=== PATIENT | female | born 1980 | race Caucasian/White ===

== ENCOUNTER → 2017-09-02 | Outpatient (REF) | payer OTHER | LOC: M LAB REF 16:19 | DX: N39.0 Urinary tract infection, site not specified (principal) ==

== ENCOUNTER 2018-07-12 16:06 | Emergency (ER) | payer OTHER ==
[~2018-07-12] VITALS: Ht 167.6 cm; Wt 72.7 kg
[2018-07-12 16:06] VITALS: BP 116/76
[~2018-07-12 16:06] MED LIST: ACET-716 PO; BACT800T5 PO; DICY20TA PO; HYDR-3715 PO; IBUP-1022 PO; IBUP-1114 PO; IBUP80TA PO; KLON0.5T PO; LITH300T2 PO; PRED20TA PO; PROM12.528 PO; PROT1TAB2 PO; PROZ10CA7 PO; PYRI1TAB5 PO; ROBA500T PO; SERO1TAB PO; SUCR1SS PO
[2018-07-12] MEDS ORDERED: ROBA500T PO (17:23)
[2018-07-12] MEDS ORDERED: PRED20TA PO (17:23)
[2018-07-12] MEDS ORDERED: GABA-843 PO (17:23)
[2018-07-12] MEDS ORDERED: LIDOCAINE 2% MDV 20 ML VIAL SC ONE (17:30)
== END 2018-07-12 17:49 | disposition home or self-care (01) ==
LOC: MERGE 16:06 → M ED 16:06
DX: M54.12 Radiculopathy, cervical region (principal); F31.9 Bipolar disorder, unspecified; Z79.899 Other long term (current) drug therapy

== ENCOUNTER 2018-07-17 17:05 | Emergency (ER) | payer OTHER ==
[~2018-07-17] VITALS: Ht 165.1 cm; Wt 80.9 kg
[~2018-07-17 17:05] MED LIST changes: +GABA-843 PO
[2018-07-17] MEDS ORDERED: BUPIVACAINE HCL 0.25% 30 ML VIAL IM ONE (18:30)
[2018-07-17] MEDS ORDERED: BUPIVACAINE HCL 0.25% 10 ML VIAL IM ONE (18:30)
[2018-07-17] MEDS ORDERED: LIDO5DIS41 TOP (19:11)
[2018-07-17 19:15] VITALS: BP 120/72
[2018-07-17] MEDS ORDERED: LIDOCAINE 5% (LIDODERM) PATCH TD ONE (19:15)
[2018-07-18] MEDS ORDERED: BUPIVACAINE/EPIN 0.25% 30 ML VIAL IM ONE (09:00)
== END 2018-07-17 19:23 | disposition home or self-care (01) ==
LOC: M ED 17:05
DX: M54.2 Cervicalgia (principal); M54.6 Pain in thoracic spine; M79.601 Pain in right arm; M79.602 Pain in left arm; Z79.899 Other long term (current) drug therapy

== ENCOUNTER 2018-07-27 12:51 | Emergency (ER) | payer OTHER ==
[~2018-07-27] VITALS: Ht 165.1 cm; Wt 81.1 kg
[~2018-07-27 12:51] MED LIST changes: +LIDO5DIS41 TOP
[2018-07-27 12:52] VITALS: BP 126/75
== END 2018-07-27 13:30 | disposition left against medical advice (07) ==
LOC: M ED 12:51
DX: Z53.29 Procedure and treatment not carried out because of patient's decision for other reasons (principal)

== ENCOUNTER 2018-07-27 18:33 | Emergency (ER) | payer OTHER ==
[~2018-07-27] VITALS: Ht 165.1 cm; Wt 77.7 kg
[2018-07-27 18:34] VITALS: BP 128/77
[2018-07-27] MEDS ORDERED: LIDOCAINE 2% MDV 20 ML VIAL SC ONE (21:00)
== END 2018-07-27 21:21 | disposition home or self-care (01) ==
LOC: M ED 18:33
DX: M54.12 Radiculopathy, cervical region (principal); G89.29 Other chronic pain; M54.9 Dorsalgia, unspecified; K29.70 Gastritis, unspecified, without bleeding; K59.09 Other constipation; Z79.899 Other long term (current) drug therapy

== ENCOUNTER 2018-09-02 08:45 | Emergency (ER) | payer OTHER ==
[~2018-09-02] VITALS: Ht 165.1 cm; Wt 81.7 kg
[2018-09-02 08:46] VITALS: BP 134/83
[2018-09-02] MEDS ORDERED: AUGMENTIN 875 MG TAB PO ONE (09:15)
[2018-09-02] MEDS ORDERED: PERCOCET 5MG/325MG TAB PO ONE (09:15)
[2018-09-02] MEDS ORDERED: AUGM875T28 PO (09:22)
[2018-09-02] MEDS ORDERED: PERC5TAB12 PO (09:23)
== END 2018-09-02 09:31 | disposition home or self-care (01) ==
LOC: M ED 08:45
DX: K08.89 Other specified disorders of teeth and supporting structures (principal); Z98.818 Other dental procedure status; Z79.899 Other long term (current) drug therapy

== ENCOUNTER 2018-09-10 11:45 | Day surgery (SDC) | payer OTHER ==
[~2018-09-10] VITALS: Ht 165.1 cm; Wt 80.9 kg
[~2018-09-10 11:45] MED LIST changes: +AUGM875T28 PO; +NS 1,000 ML IV ONE; +PERC5TAB12 PO
[2018-09-10] MEDS ORDERED: PROPOFOL 200 MG/20 ML VIAL As Ordered ONE ×2 (13:46→14:17)
[2018-09-10] MEDS ORDERED: LIDOCAINE 2% INJ 100 MG/5 ML SDV (FOR ANES.) As Ordered ONE (13:46)
--- NOTE | 2018-09-10 14:07 | ROOR ---
Patient Name: Maggy Grewal Procedure Date: 09/10/2018 1:43 PM Date of : 1980 Age: 38 Room: [facility] Gender: Female Note Status: Finalized Procedure: Upper GI endoscopy Indications: Heartburn Providers: Roberto BARRERA MD Referring MD: ELIJAH COLES MD Requesting Provider: Medicines: Monitored Anesthesia Care Complications: No immediate complications. Procedure: Pre-Anesthesia Assessment: - The heart rate, respiratory rate, oxygen saturations, blood pressure, adequacy of pulmonary ventilation, and response to care were monitored throughout the procedure. The Endoscope was introduced through the mouth, and advanced to the second part of duodenum. The upper GI endoscopy was accomplished without difficulty. The patient tolerated the procedure well. Findings: Mildly severe esophagitis was found in the lower third of the esophagus. The exam of the esophagus was otherwise normal. The entire examined stomach was normal. The examined duodenum was normal. Impression: - Mild reflux esophagitis. - Normal stomach. - Normal examined duodenum. - No specimens collected. Recommendation: - Use Prilosec (omeprazole) 40 mg PO BID. - Follow an antireflux regimen. - Gastroparesis diet: - Eat smaller, more frequent meals throughout the day. - Low fat diet. - Liquid/soft foods are tolerated better than solid foods. - Low fiber/well cooked vegetables are tolerated better than high fiber/fibrous foods/raw vegetables. - Avoid medications that inhibit gastric/intestinal motility such as narcotic medications. Roberto Barrera MD Roberto BARRERA MD 09/10/2018 2:06:48 PM Electronically signed by Roberto BARRERA MD Number of Addenda: 0 Note Initiated On: 09/10/2018 1:43 PM Estimated Blood Loss: Estimated blood loss: none.
--- NOTE | 2018-09-10 14:43 | ROOR ---
Patient Name: Maggy Grewal Procedure Date: 09/10/2018 1:45 PM Date of : 1980 Age: 38 Room: [facility] Gender: Female Note Status: Finalized Procedure: Colonoscopy Indications: Chronic idiopathic constipation Providers: Roberto BARRERA MD Referring MD: ELIJAH COLES MD Requesting Provider: Medicines: Monitored Anesthesia Care Complications: No immediate complications. Procedure: Pre-Anesthesia Assessment: - The heart rate, respiratory rate, oxygen saturations, blood pressure, adequacy of pulmonary ventilation, and response to care were monitored throughout the procedure. The Colonoscope was introduced through the anus and advanced to 5 cm into the ileum. The colonoscopy was performed with difficulty due to inadequate bowel prep. Successful completion of the procedure was aided by lavage. The patient tolerated the procedure well. The quality of the bowel preparation was fair. Findings: The perianal and digital rectal examinations were normal. (EXAM: Complete, PREP: Suboptimal) The terminal ileum appeared normal. Small Internal Hemorrhoids. The entire examined colon appeared normal on direct and retroflexion views. Impression: - (EXAM: Complete, PREP: Suboptimal) - The examined portion of the ileum was normal. - Small Internal Hemorrhoids. - The entire examined colon is normal on direct and retroflexion views. - No specimens collected. Recommendation: - Use Miralax 2 capfuls (34 grams) PO BID. - Use Linzess (linaclotide) 290 mcg PO daily. - Stop Lactulose. Re start Linzess 290 mcg and Miralax 2 doses twice a day today or tomorrow (while your system is still empty). This will prevent abdominal cramping and is much more likely to provide results. Continue taking meds indefinitely. - (the script was sent to your pharmacy on file) Roberto Barrera MD Roberto BARRERA MD 09/10/2018 2:43:20 PM Electronically signed by Roberto BARRERA MD Number of Addenda: 0 Note Initiated On: 09/10/2018 1:45 PM Estimated Blood Loss: Estimated blood loss: none.
[2018-09-10 15:05] VITALS: BP 112/63
== END 2018-09-10 15:23 | disposition home or self-care (01) ==
LOC: M OPP 11:45
PROVIDERS: ATTEND Internal Medicine Gastroenterology
DX: K64.8 Other hemorrhoids (principal); K59.04 Chronic idiopathic constipation; K21.0 Gastro-esophageal reflux disease with esophagitis; R12 Heartburn

== ENCOUNTER 2018-10-07 07:02 | Emergency (ER) | payer OTHER ==
[~2018-10-07] VITALS: Ht 165.1 cm; Wt 79.1 kg
[~2018-10-07 07:02] MED LIST changes: -NS 1,000 ML IV ONE
[2018-10-07] MEDS ORDERED: LINZ290C (07:12)
[2018-10-07] MEDS ORDERED: LITH45TASA (07:12)
[2018-10-07] MEDS ORDERED: CLON1TAB8 (07:12)
[2018-10-07] MEDS ORDERED: OMEP-221 (07:12)
[2018-10-07] MEDS ORDERED: HYDR-3363 (07:12)
[2018-10-07] MEDS ORDERED: ONDANSETRON 4MG/2ML VIAL (J2405) IV ONE (08:00)
[2018-10-07] MEDS ORDERED: KETOROLAC 30 MG/ML VIAL (J1885) IV ONE ×2 (08:30→11:45)
[2018-10-07 08:48] LABS: BASO # 0.1 10^3/uL (0.0-0.2); BASO % 0.8 % (0.0-1.0); EOS # 0.2 10^3/uL (0.0-0.50); EOS % 2.6 % (0.0-3.0); HEMATOCRIT 38.8 % (36.0-47.0); HEMOGLOBIN 12.6 g/dl (12.0-15.5); LYMPH # 2.9 10^3/uL (1.5-4.5); LYMPH % 33.1 % (24.0-44.0); MEAN CORPUSCULAR HEMOGLOBIN 30.8 pg (27.0-33.0); MEAN CORPUSCULAR HGB CONC 32.5 g/dl (32.0-36.5); MEAN CORPUSCULAR VOLUME 94.9 fl (80.0-96.0); MONO # 0.4 10^3/uL (0.0-0.8); MONO % 4.9 % (0.0-5.0); NEUTROPHILS # 4.8 10^3/uL (1.8-7.7); NEUTROPHILS % 56.3 % (36.0-66.0); PLATELET COUNT, AUTOMATED 249 10^3/uL (150-450); RED BLOOD COUNT 4.09 10^6/uL (4.00-5.40); WHITE BLOOD COUNT 8.6 10^3/uL (4.0-10.0)
[2018-10-07 09:16] LABS: ALBUMIN 3.7 GM/DL (3.2-5.2); ALT/SGPT 29 U/L (12-78); BILIRUBIN,DIRECT < 0.1 MG/DL (0.0-0.2); BILIRUBIN,TOTAL 0.2 MG/DL (0.2-1.0); LIPASE 146 U/L (73-393); TOTAL PROTEIN 6.6 GM/DL (6.4-8.2)
[2018-10-07 09:38] LABS: BLOOD UREA NITROGEN 8 MG/DL (7-18); CALCIUM LEVEL 9.2 MG/DL (8.5-10.1); CARBON DIOXIDE LEVEL 24 MEQ/L (21-32); CHLORIDE LEVEL 109 MEQ/L (98-107); CREATININE FOR GFR 0.72 MG/DL (0.55-1.30); GLOMERULAR FILTRATION RATE > 60.0 (>60); GLUCOSE, FASTING 115 MG/DL (70-100); SODIUM LEVEL 139 MEQ/L (136-145)
[2018-10-07] MEDS ORDERED: ONDANSETRON 4 MG ORAL DISINTEGRATING TAB (Q0162 PER 1MG) PO ONE (10:15)
--- NOTE | 2018-10-07 10:33 | REP ---
CT of the abdomen pelvis without IV or bowel contrast: There are no comparisons. The visualized lung romero demonstrate minor atelectasis in the left lower lobe and a a small left pleural effusion. The hepatic parenchyma is diffusely less dense than the spleen suggestive of hepato steatosis. The liver is otherwise unremarkable per The gallbladder, pancreas and spleen are normal size and unremarkable. The adrenals and kidneys and abdominal aorta are well. There is no retroperitoneal adenopathy or mass. The mesentery is unremarkable. There is no ascites. There is intraluminal fluid in the cecum. Cecal wall is mildly thickened. There are small air fluid levels in the cecum. The findings are nonspecific but could be related to colitis in the appropriate clinical setting. The terminal ileum is unremarkable. The appendix is unremarkable. Pelvis: There is a hysterectomy. Vaginal cuff and adnexa are unremarkable. The bladder is unremarkable. The pelvic bowel loops are unremarkable. There is no ascites or adenopathy. The preliminary profile grinder view of the abdomen pelvis demonstrates a screw tract in the right femoral neck from prior internal fixation. Screws been removed. There are three persisting screws in the proximal femoral shaft. The Impression: There are nonspecific findings in the cecum as described, possibly colitis in the appropriate clinical setting. The terminal ileum is unremarkable. The appendix is unremarkable. There is no ascites or adenopathy. There is no bowel distension or obstruction. Hepato steatosis. There are postsurgical changes in the right hip. Electronically Signed by Luis Antonio Gannon MD 10/07/2018 10:25 A
[2018-10-07] MEDS ORDERED: DICY10CA13 PO (11:36)
[2018-10-07 11:47] VITALS: BP 117/71
== END 2018-10-07 11:57 | disposition home or self-care (01) ==
LOC: M ED 07:02
DX: K52.9 Noninfective gastroenteritis and colitis, unspecified (principal); G89.29 Other chronic pain; M54.9 Dorsalgia, unspecified; K59.9 Functional intestinal disorder, unspecified; F31.9 Bipolar disorder, unspecified; Z79.899 Other long term (current) drug therapy
CPT/HCPCS: 74176; 80048; 80076; 81001; 83690; 85025; 87088; 87186; 93041; 96374; 96376; 99285; J1885; Q0162

== ENCOUNTER 2018-10-19 16:51 | Emergency (ER) | payer OTHER ==
[~2018-10-19] VITALS: Ht 165.1 cm; Wt 79.5 kg
[~2018-10-19 16:51] MED LIST changes: +CLON1TAB8; +DICY10CA13 PO; +HYDR-3363; +LINZ290C; +LITH45TASA; +OMEP-221
[2018-10-19] MEDS ORDERED: GABAPENTIN 300 MG CAP PO ONE (19:00)
[2018-10-19] MEDS ORDERED: KETOROLAC 60 MG/2 ML VIAL (J1885) IM ONE (19:00)
[2018-10-19 19:57] LABS: BLOOD UREA NITROGEN 10 MG/DL (7-18); CALCIUM LEVEL 9.3 MG/DL (8.5-10.1); CARBON DIOXIDE LEVEL 23 MEQ/L (21-32); CHLORIDE LEVEL 108 MEQ/L (98-107); CREATININE FOR GFR 0.94 MG/DL (0.55-1.30); GLOMERULAR FILTRATION RATE > 60.0 (>60); GLUCOSE, FASTING 127 MG/DL (70-100); MAGNESIUM LEVEL 2.3 MG/DL (1.8-2.4); POTASSIUM SERUM 4.4 MEQ/L (3.5-5.1); SODIUM LEVEL 137 MEQ/L (136-145)
--- NOTE | 2018-10-19 20:35 | REPVR ---
EXAM: CT Cervical Spine Without Contrast EXAM DATE/TIME: 10/19/2018 7:21 PM CLINICAL HISTORY: 38 years old, female; Neck pain; Additional info: Chronic neck pain, tingling in arms TECHNIQUE: Imaging protocol: Computed tomography images of the cervical spine without contrast. Coronal and sagittal reformatted images were created and reviewed. Radiation optimization: All CT scans at this facility use at least one of these dose optimization techniques: automated exposure control; mA and/or kV adjustment per patient size (includes targeted exams where dose is matched to clinical indication); or iterative reconstruction. COMPARISON: No relevant prior studies available. FINDINGS: Vertebrae: Slight upper cervical levoconvex scoliosis and lower cervical dextroconvex scoliosis. Straightening of the cervical lordosis may be positional or due to muscle spasm. No acute fracture seen. No significant disc height loss. C2-C3: No disc herniation. No spinal stenosis. No neural foraminal narrowing. C3-C4: No disc herniation. No spinal stenosis. No neural foraminal narrowing. C4-C5: No disc herniation. No spinal stenosis. No neural foraminal narrowing. C5-C6: No disc herniation. No spinal stenosis. No neural foraminal narrowing. C6-C7: No disc herniation. No spinal stenosis. No neural foraminal narrowing. C7-T1: No disc herniation. No spinal stenosis. No neural foraminal narrowing. Soft tissues: Unremarkable. Lymph nodes: Cervical lymph nodes are mildly prominent in number, not pathologically enlarged individually. Lungs: Lung apices are normal. IMPRESSION: No acute findings or stenoses identified. Electronically signed by: Felisa Fernández On 10/19/2018 20:35:25 PM
--- NOTE | 2018-10-19 20:42 | REPVR ---
EXAM: CT Thoracic Spine Without Contrast EXAM DATE/TIME: 10/19/2018 7:21 PM CLINICAL HISTORY: 38 years old, female; Pain in thoracic spine; Additional info: Vertebral tenderness tingling in arms TECHNIQUE: Imaging protocol: Computed tomography images of the thoracic spine without contrast. Coronal and sagittal reformatted images were created and reviewed. Radiation optimization: All CT scans at this facility use at least one of these dose optimization techniques: automated exposure control; mA and/or kV adjustment per patient size (includes targeted exams where dose is matched to clinical indication); or iterative reconstruction. COMPARISON: No relevant prior studies available. FINDINGS: Vertebrae: Mild upper thoracic levoconvex scoliosis and midthoracic dextroconvex scoliosis. A focal, sclerotic lesion in the left aspect of the T9 vertebral body may represent a bone island. Discs/Spinal canal/Neural foramina: No significant disc height loss. No bony or soft tissue impingement seen upon the spinal canal or foramina. Soft tissues: Unremarkable. Mild cardiomegaly. Trace right pleural effusion. Suspect hepatomegaly. The liver appears more hypodense than usual consistent with fatty change. IMPRESSION: No acute findings or stenoses identified. Electronically signed by: Felisa Fernández On 10/19/2018 20:41:40 PM
[2018-10-19 20:46] VITALS: BP 122/75
[2018-10-19] MEDS ORDERED: GABA-845 PO (21:09)
[2018-10-19] MEDS ORDERED: PRED20TA PO (21:09)
[2018-10-19] MEDS ORDERED: LIDOCAINE 5% (LIDODERM) PATCH TD ONE (21:15)
[2018-10-20] MEDS ORDERED: **NOTE PATIENT COMMENT** MISC XX ONE (09:15)
== END 2018-10-19 21:21 | disposition home or self-care (01) ==
LOC: M ED 16:51
DX: M54.12 Radiculopathy, cervical region (principal); K21.9 Gastro-esophageal reflux disease without esophagitis; F32.9 Major depressive disorder, single episode, unspecified; F41.9 Anxiety disorder, unspecified; Z79.899 Other long term (current) drug therapy
CPT/HCPCS: 36415; 72125; 72128; 80048; 83735; 96372; 99283; J1885

== ENCOUNTER 2018-10-24 09:48 | Emergency (ER) | payer OTHER ==
[~2018-10-24] VITALS: Ht 165.1 cm; Wt 80.0 kg
[~2018-10-24 09:48] MED LIST changes: +GABA-845 PO
[2018-10-24 09:50] VITALS: BP 138/90
[2018-10-24] MEDS ORDERED: LIDO5DIS41 TD (10:40)
[2018-10-24] MEDS ORDERED: KETO10TAB PO (10:40)
== END 2018-10-24 11:06 | disposition home or self-care (01) ==
LOC: M ED 09:48
DX: M79.18 Myalgia, other site (principal); M79.602 Pain in left arm; F31.9 Bipolar disorder, unspecified; K59.09 Other constipation; Z79.899 Other long term (current) drug therapy

== ENCOUNTER 2018-11-01 11:58 | Emergency (ER) | payer OTHER ==
[~2018-11-01] VITALS: Ht 165.1 cm; Wt 77.3 kg
[~2018-11-01 11:58] MED LIST changes: +KETO10TAB PO; +LIDO5DIS41 TD
[2018-11-01 14:36] VITALS: BP 118/75
== END 2018-11-01 14:42 | disposition home or self-care (01) ==
LOC: M ED 11:58
DX: M79.622 Pain in left upper arm (principal); F31.9 Bipolar disorder, unspecified; Z79.899 Other long term (current) drug therapy

== ENCOUNTER 2018-12-19 04:22 | Emergency (ER) | payer OTHER ==
[~2018-12-19] VITALS: Ht 165.1 cm; Wt 68.2 kg
[2018-12-19] MEDS ORDERED: ACETAMINOPHEN TAB 650MG DOSE (2X325MG) PO ONE (06:15)
[2018-12-19] MEDS ORDERED: [UNRECOGNIZED DRUG - CODE] MT (06:29)
[2018-12-19 07:30] VITALS: BP 134/72
== END 2018-12-19 07:31 | disposition home or self-care (01) ==
LOC: M ED 04:22
DX: M79.675 Pain in left toe(s) (principal); K11.7 Disturbances of salivary secretion; F31.9 Bipolar disorder, unspecified; K21.9 Gastro-esophageal reflux disease without esophagitis; F17.210 Nicotine dependence, cigarettes, uncomplicated; Z79.899 Other long term (current) drug therapy

== ENCOUNTER 2018-12-29 16:54 | Emergency (ER) | payer OTHER ==
[~2018-12-29] VITALS: Ht 165.1 cm; Wt 72.7 kg
[~2018-12-29 16:54] MED LIST changes: +[UNRECOGNIZED DRUG - CODE] MT
[2018-12-29] MEDS ORDERED: CYCL10TA (17:13)
[2018-12-29 18:24] VITALS: BP 111/63
== END 2018-12-29 18:27 | disposition home or self-care (01) ==
LOC: M ED 16:54
DX: F32.9 Major depressive disorder, single episode, unspecified (principal); Z79.899 Other long term (current) drug therapy

== ENCOUNTER 2019-01-17 03:22 | Emergency (ER) | payer OTHER ==
[~2019-01-17] VITALS: Ht 165.1 cm; Wt 72.7 kg
[~2019-01-17 03:22] MED LIST changes: +CYCL10TA
[2019-01-17 03:42] VITALS: BP 118/76
== END 2019-01-17 04:21 | disposition home or self-care (01) ==
LOC: M ED 03:22
DX: Z02.83 Encounter for blood-alcohol and blood-drug test (principal); F17.200 Nicotine dependence, unspecified, uncomplicated; Z79.899 Other long term (current) drug therapy
CPT/HCPCS: 36415; 80307; 99284; G0480

== ENCOUNTER 2019-01-26 00:47 | Emergency (ER) | payer OTHER ==
[~2019-01-26] VITALS: Ht 165.1 cm; Wt 68.9 kg
[2019-01-26 00:47] VITALS: BP 122/72
[2019-01-26] MEDS ORDERED: GABA600T4 PO ×2 (00:57→01:13)
[2019-01-26] MEDS ORDERED: NAPR-885 PO (01:13)
[2019-01-26] MEDS ORDERED: NAPROXEN 250 MG TAB PO ONE (01:15)
== END 2019-01-26 01:20 | disposition home or self-care (01) ==
LOC: M ED 00:47
DX: S29.012A Strain of muscle and tendon of back wall of thorax, initial encounter (principal); V49.59XA Passenger injured in collision with other motor vehicles in traffic accident, initial encounter; Y92.410 Unspecified street and highway as the place of occurrence of the external cause; F31.9 Bipolar disorder, unspecified; G89.29 Other chronic pain; M54.9 Dorsalgia, unspecified; Z79.899 Other long term (current) drug therapy

== ENCOUNTER 2019-02-26 17:58 | Emergency (ER) | payer OTHER ==
[~2019-02-26] VITALS: Ht 165.1 cm; Wt 63.6 kg
[~2019-02-26 17:58] MED LIST changes: +GABA600T4 PO; +NAPR-885 PO
[2019-02-26 17:59] VITALS: BP 110/66
[2019-02-26] MEDS ORDERED: METOCLOPRAMIDE 10 MG TAB PO ONE (18:15)
[2019-02-26] MEDS ORDERED: CEPHALEXIN 500 MG CAP PO ONE (18:15)
[2019-02-26] MEDS ORDERED: LIDOCAINE 5% OINT 30 GM TOP STA (18:15)
[2019-02-26] MEDS ORDERED: KETOROLAC 60 MG/2 ML VIAL (J1885) IM ONE (18:15)
[2019-02-26] MEDS ORDERED: KEFL500C17 PO (18:20)
== END 2019-02-26 18:51 | disposition home or self-care (01) ==
LOC: M ED 17:58
DX: L72.9 Follicular cyst of the skin and subcutaneous tissue, unspecified (principal); R51 Headache; K59.9 Functional intestinal disorder, unspecified; F99 Mental disorder, not otherwise specified; Z79.899 Other long term (current) drug therapy
CPT/HCPCS: 96372; 99282; J1885

== ENCOUNTER 2019-03-01 17:37 | Emergency (ER) | payer OTHER ==
[~2019-03-01] VITALS: Ht 165.1 cm; Wt 67.7 kg
[~2019-03-01 17:37] MED LIST changes: +KEFL500C17 PO
[2019-03-01] MEDS ORDERED: REGL5TAB2 PO (22:08)
[2019-03-01] MEDS ORDERED: KETO10TAB PO (22:08)
[2019-03-01] MEDS ORDERED: KETOROLAC 60 MG/2 ML VIAL (J1885) IM ONE (22:15)
[2019-03-01 22:36] VITALS: BP 107/58
== END 2019-03-01 22:42 | disposition home or self-care (01) ==
LOC: M ED 17:37
DX: L72.3 Sebaceous cyst (principal); F33.9 Major depressive disorder, recurrent, unspecified; Z79.899 Other long term (current) drug therapy; F17.210 Nicotine dependence, cigarettes, uncomplicated
CPT/HCPCS: 96372; 99283; J1885

== ENCOUNTER 2019-03-29 15:13 | Emergency (ER) | payer OTHER ==
[~2019-03-29] VITALS: Ht 165.1 cm; Wt 68.9 kg
[~2019-03-29 15:13] MED LIST changes: +REGL5TAB2 PO
[2019-03-29] MEDS ORDERED: SERO400T PO (17:36)
[2019-03-29 17:43] VITALS: BP 125/60
== END 2019-03-29 17:46 | disposition home or self-care (01) ==
LOC: M ED 15:13
DX: Z76.0 Encounter for issue of repeat prescription (principal); F31.9 Bipolar disorder, unspecified; F41.9 Anxiety disorder, unspecified; K21.9 Gastro-esophageal reflux disease without esophagitis; Z79.899 Other long term (current) drug therapy

== ENCOUNTER 2019-04-04 12:56 | Emergency (ER) | payer OTHER ==
[~2019-04-04] VITALS: Ht 165.1 cm; Wt 71.1 kg
[~2019-04-04 12:56] MED LIST changes: +SERO400T PO
[2019-04-04] MEDS ORDERED: CLON1TAB17 PO (14:47)
[2019-04-04] MEDS ORDERED: SERO400T PO (14:47)
[2019-04-04] MEDS ORDERED: LITH45TASA PO (14:48)
[2019-04-04 15:03] VITALS: BP 115/68
== END 2019-04-04 15:03 | disposition home or self-care (01) ==
LOC: M ED 12:56
DX: Z76.0 Encounter for issue of repeat prescription (principal); F31.9 Bipolar disorder, unspecified; K21.9 Gastro-esophageal reflux disease without esophagitis

== ENCOUNTER → 2019-04-29 | Outpatient (CLI) | payer OTHER ==
[~2019-04-29] MED LIST changes: +CLON1TAB17 PO; +LITH45TASA PO
[2019-04-29 16:35] LABS: HEMATOCRIT 39.6 % (36.0-47.0); HEMOGLOBIN 12.3 g/dl (12.0-15.5); MEAN CORPUSCULAR HEMOGLOBIN 30.2 pg (27.0-33.0); MEAN CORPUSCULAR HGB CONC 31.1 g/dl (32.0-36.5); MEAN CORPUSCULAR VOLUME 97.3 fl (80.0-96.0); PLATELET COUNT, AUTOMATED 262 10^3/uL (150-450); RED BLOOD COUNT 4.07 10^6/uL (4.00-5.40); WHITE BLOOD COUNT 9.3 10^3/uL (4.0-10.0)
[2019-04-29 17:08] LABS: ALBUMIN 3.9 GM/DL (3.2-5.2); ALT/SGPT 18 U/L (12-78); BILIRUBIN,TOTAL 0.2 MG/DL (0.2-1.0); BLOOD UREA NITROGEN 8 MG/DL (7-18); CALCIUM LEVEL 8.8 MG/DL (8.5-10.1); CARBON DIOXIDE LEVEL 26 MEQ/L (21-32); CHLORIDE LEVEL 109 MEQ/L (98-107); CREATININE FOR GFR 0.71 MG/DL (0.55-1.30); FREE T3 1.9 PG/ML (2.2-4.0); FREE T4 0.64 NG/DL (0.76-1.46); GLOMERULAR FILTRATION RATE > 60.0 (>60); GLUCOSE, FASTING 89 MG/DL (70-100); LITHIUM LEVEL 1.49 MEQ/L (0.60-1.20); POTASSIUM SERUM 4.3 MEQ/L (3.5-5.1); SODIUM LEVEL 140 MEQ/L (136-145); TOTAL PROTEIN 6.8 GM/DL (6.4-8.2)
== END ==
LOC: M WUC 14:40
PROVIDERS: ATTEND Nurse Practitioner Psychiatric/Mental Health
DX: Z51.81 Encounter for therapeutic drug level monitoring (principal); Z79.899 Other long term (current) drug therapy

== ENCOUNTER → 2019-07-20 | Outpatient (CLI) | payer OTHER ==
[~2019-07-20] MED LIST changes: +CYCL-707; -CYCL10TA
[2019-07-20 16:40] LABS: BASO # 0.1 10^3/uL (0.0-0.2); BASO % 0.9 % (0.0-1.0); EOS # 0.1 10^3/uL (0.0-0.5); EOS % 1.3 % (0.0-3.0); HEMATOCRIT 43.7 % (36.0-47.0); HEMOGLOBIN 14.2 g/dl (12.0-15.5); MEAN CORPUSCULAR HGB CONC 32.5 g/dl (32.0-36.5); MEAN CORPUSCULAR VOLUME 92.4 fl (80.0-96.0); MONO # 0.4 10^3/uL (0.0-0.8); MONO % 5.4 % (0.0-5.0); NEUTROPHILS # 3.9 10^3/uL (1.5-8.5); NEUTROPHILS % 51.4 % (36.0-66.0); PLATELET COUNT, AUTOMATED 285 10^3/uL (150-450); RED BLOOD COUNT 4.73 10^6/uL (4.00-5.40); WHITE BLOOD COUNT 7.6 10^3/uL (4.0-10.0)
[2019-07-20 17:25] LABS: ALBUMIN 4.1 GM/DL (3.2-5.2); ALT/SGPT 25 U/L (12-78); BILIRUBIN,TOTAL 0.4 MG/DL (0.2-1.0); BLOOD UREA NITROGEN 7 MG/DL (7-18); CALCIUM LEVEL 9.8 MG/DL (8.5-10.1); CARBON DIOXIDE LEVEL 25 MEQ/L (21-32); CHLORIDE LEVEL 108 MEQ/L (98-107); CREATININE FOR GFR 0.65 MG/DL (0.55-1.30); FREE T4 0.91 NG/DL (0.76-1.46); GLOMERULAR FILTRATION RATE > 60.0 (>58); GLUCOSE, FASTING 97 MG/DL (70-100); POTASSIUM SERUM 4.3 MEQ/L (3.5-5.1); SODIUM LEVEL 140 MEQ/L (136-145); TOTAL PROTEIN 7.1 GM/DL (6.4-8.2)
== END ==
LOC: M WUC 14:07
PROVIDERS: ATTEND Physician Assistant
DX: R30.0 Dysuria (principal)

== ENCOUNTER 2019-08-03 17:47 | Emergency (ER) | payer OTHER ==
[~2019-08-03] VITALS: Ht 165.1 cm; Wt 79.7 kg
[~2019-08-03 17:47] MED LIST changes: -CLON1TAB8; +CLON1TAB8 PO
[2019-08-03 17:48] VITALS: BP 123/67
[2019-08-03] MEDS ORDERED: IBUP1TAB7 PO (18:01)
[2019-08-03] MEDS ORDERED: CLON1TAB17 PO (18:01)
[2019-08-03] MEDS ORDERED: CLIN300C5 PO (18:01)
[2019-08-03] MEDS ORDERED: NORC1TAB7 PO (18:58)
[2019-08-03] MEDS ORDERED: MAGICMW SSP (19:00)
== END 2019-08-03 19:05 | disposition home or self-care (01) ==
LOC: M ED 17:47
DX: K04.7 Periapical abscess without sinus (principal); K02.9 Dental caries, unspecified; F31.9 Bipolar disorder, unspecified; F17.200 Nicotine dependence, unspecified, uncomplicated; Z79.2 Long term (current) use of antibiotics; Z79.899 Other long term (current) drug therapy

== ENCOUNTER 2019-08-12 20:45 | Emergency (ER) | payer OTHER ==
[~2019-08-12] VITALS: Ht 165.1 cm; Wt 72.7 kg
[~2019-08-12 20:45] MED LIST changes: +CLIN300C5 PO; +IBUP1TAB7 PO; +MAGICMW SSP; +NORC1TAB7 PO
[2019-08-12] MEDS ORDERED: KETO10TAB PO (22:29)
[2019-08-12] MEDS ORDERED: LIDVISCBTL SSP (22:29)
[2019-08-12] MEDS ORDERED: KETOROLAC TROMETHAMINE 10 MG TAB PO ONE (22:30)
[2019-08-12] MEDS: LIDOCAINE VISCOUS 2% SOLN 15ML UDC SSP ONE (22:32)
[2019-08-12] MEDS: KETOROLAC 60 MG/2 ML VIAL IM ONE (22:41)
[2019-08-12 22:46] VITALS: BP 130/79
== END 2019-08-12 22:56 | disposition home or self-care (01) ==
LOC: M ED 20:45
DX: K08.89 Other specified disorders of teeth and supporting structures (principal); K29.70 Gastritis, unspecified, without bleeding; F31.9 Bipolar disorder, unspecified; F17.210 Nicotine dependence, cigarettes, uncomplicated
CPT/HCPCS: 99283; J1885

== ENCOUNTER 2019-08-24 13:24 | Emergency (ER) | payer OTHER ==
[~2019-08-24] VITALS: Ht 165.1 cm; Wt 79.3 kg
[2019-08-24 13:24] VITALS: BP 118/67
[~2019-08-24 13:24] MED LIST changes: +LIDVISCBTL SSP
[2019-08-24] MEDS ORDERED: LIDO5DIS41 TOP ×2 (13:43→14:13)
[2019-08-24] MEDS ORDERED: methocarbamoL 500 MG TAB PO ONE (14:00)
[2019-08-24] MEDS ORDERED: GABAPENTIN 300 MG CAP PO ONE (14:00)
[2019-08-24] MEDS ORDERED: LIDOCAINE 5% (LIDODERM) PATCH TD ONE (14:00)
[2019-08-24] MEDS ORDERED: ROBA750T4 PO (14:13)
[2019-08-25] MEDS ORDERED: **NOTE PATIENT COMMENT** MISC XX ONE (02:00)
== END 2019-08-24 14:19 | disposition home or self-care (01) ==
LOC: M ED 13:24
DX: M54.6 Pain in thoracic spine (principal); F17.200 Nicotine dependence, unspecified, uncomplicated; K29.70 Gastritis, unspecified, without bleeding; K59.09 Other constipation; F31.9 Bipolar disorder, unspecified; Z79.899 Other long term (current) drug therapy

== ENCOUNTER → 2019-09-16 | Outpatient (REF) | payer OTHER ==
[~2019-09-16] MED LIST changes: +CLIN150C14 PO; +GABA-843; +MIRT1TAB15; +NAPROXEN; +ROBA750T4 PO
[2019-09-16 12:26] LABS: BASO # 0.1 10^3/uL (0.0-0.2); BASO % 1.2 % (0.0-1.0); EOS # 0.2 10^3/uL (0.0-0.5); EOS % 3.2 % (0.0-3.0); HEMATOCRIT 40.2 % (36.0-47.0); HEMOGLOBIN 12.9 g/dl (12.0-15.5); LYMPH # 2.5 10^3/uL (1.5-5.0); LYMPH % 38.1 % (24.0-44.0); MEAN CORPUSCULAR HEMOGLOBIN 30.2 pg (27.0-33.0); MEAN CORPUSCULAR HGB CONC 32.1 g/dl (32.0-36.5); MEAN CORPUSCULAR VOLUME 94.1 fl (80.0-96.0); MONO # 0.4 10^3/uL (0.0-0.8); MONO % 5.7 % (0.0-5.0); NEUTROPHILS # 3.3 10^3/uL (1.5-8.5); NEUTROPHILS % 50.1 % (36.0-66.0); PLATELET COUNT, AUTOMATED 239 10^3/uL (150-450); RED BLOOD COUNT 4.27 10^6/uL (4.00-5.40); WHITE BLOOD COUNT 6.6 10^3/uL (4.0-10.0)
[2019-09-16 13:44] LABS: APPEARANCE, URINE CLOUDY (CLEAR); BACTERIA, URINE AUTO NEGATIVE (NEGATIVE); BILIRUBIN, URINE AUTO NEGATIVE (NEGATIVE); BLOOD, URINE BLOOD NEGATIVE (NEGATIVE); COLOR, URINE YELLOW (YELLOW); GLUCOSE, URINE (UA) AUTO NEGATIVE (NEGATIVE); KETONE, URINE AUTO NEGATIVE (NEGATIVE); LEUKOCYTE ESTERASE, URINE AUTO NEGATIVE (NEGATIVE); NITRITE, URINE AUTO POSITIVE (NEGATIVE); PROTEIN, URINE AUTO NEGATIVE (NEGATIVE); RBC, URINE AUTO 0 /HPF (0-3); SPECIFIC GRAVITY URINE AUTO 1.012 (1.002-1.035); SQUAMOUS EPITHELIAL CELL UR AU 7 /HPF (0-6); UROBILINOGEN, URINE AUTO 0.2 mg/dL (0.0-2.0); WBC, URINE AUTO 2 /HPF (0-3)
[2019-09-16 13:56] LABS: HEMOGLOBIN A1c 5.6 %
[2019-09-16 17:37] LABS: ALT/SGPT 27 U/L (12-78); BILIRUBIN,TOTAL 0.2 MG/DL (0.2-1.0); BLOOD UREA NITROGEN 7 MG/DL (7-18); CALCIUM LEVEL 8.5 MG/DL (8.5-10.1); CARBON DIOXIDE LEVEL 24 MEQ/L (21-32); CHLORIDE LEVEL 111 MEQ/L (98-107); CHOLESTEROL LEVEL 252 MG/DL (<200); CHOLESTEROL RISK RATIO 5.478 (<5); CREATININE FOR GFR 0.72 MG/DL (0.55-1.30); GLOMERULAR FILTRATION RATE > 60.0 (>58); GLUCOSE, FASTING 101 MG/DL (70-100); HDL CHOLESTEROL 46 MG/DL (>40); LDL CHOLESTEROL 178 MG/DL (<100); NON-HDL-C 206 MG/DL; POTASSIUM SERUM 4.2 MEQ/L (3.5-5.1); SODIUM LEVEL 140 MEQ/L (136-145); THYROID STIMULATING HORMONE 0.928 uIU/ML (0.358-3.740); TOTAL PROTEIN 6.8 GM/DL (6.4-8.2); TRIGLYCERIDES LEVEL 142 MG/DL (<150)
== END ==
LOC: M LAB REF 11:48
PROVIDERS: ATTEND Nurse Practitioner Family
DX: F41.8 Other specified anxiety disorders (principal); Z13.9 Encounter for screening, unspecified; M54.9 Dorsalgia, unspecified; M25.511 Pain in right shoulder

== ENCOUNTER 2019-09-19 13:21 | Emergency (ER) | payer OTHER ==
[~2019-09-19] VITALS: Ht 165.1 cm; Wt 75.0 kg
[~2019-09-19 13:21] MED LIST changes: -CLIN150C14 PO; -GABA-843; -MIRT1TAB15; -NAPROXEN
[2019-09-19 13:22] VITALS: BP 115/65
[2019-09-19] MEDS ORDERED: NAPROXEN (13:29)
[2019-09-19] MEDS ORDERED: CLIN150C14 PO (13:29)
[2019-09-19] MEDS ORDERED: MIRT1TAB15 (13:29)
[2019-09-19] MEDS ORDERED: GABA-843 (13:29)
[2019-09-19] MEDS ORDERED: BENZOCAINE 10% 9GM TUBE (ANBESOL) TOP STA (14:11)
[2019-09-19] MEDS ORDERED: NORCO, ANEXSIA 5/325MG TABLET (HYDROcodone/ACETAMINOPHEN) PO ONE (14:15)
[2019-09-19] MEDS ORDERED: AUGM875T28 PO (14:23)
[2019-09-19] MEDS ORDERED: IBUP80TA PO (14:23)
[2020-01-24] MEDS ORDERED: CLON0.5T17 PO (14:30)
== END 2019-09-19 14:37 | disposition home or self-care (01) ==
LOC: M ED 13:21
DX: K08.89 Other specified disorders of teeth and supporting structures (principal); K02.9 Dental caries, unspecified; K05.10 Chronic gingivitis, plaque induced; K05.30 Chronic periodontitis, unspecified; F17.200 Nicotine dependence, unspecified, uncomplicated; K21.9 Gastro-esophageal reflux disease without esophagitis; K59.09 Other constipation; K29.70 Gastritis, unspecified, without bleeding; F31.9 Bipolar disorder, unspecified; Z79.899 Other long term (current) drug therapy

== ENCOUNTER 2019-11-30 14:22 | Emergency (ER) | payer OTHER ==
[~2019-11-30] VITALS: Ht 165.1 cm; Wt 82.4 kg
[2019-11-30 14:22] VITALS: BP 117/58
[~2019-11-30 14:22] MED LIST changes: +CLIN150C14 PO; +GABA-843; +MIRT1TAB15; +NAPROXEN
[2019-11-30] MEDS ORDERED: DOXE100CA PO (14:32)
--- NOTE | 2019-11-30 15:19 | REPVR ---
PROCEDURE INFORMATION: Exam: XR Right Toe(s) Exam date and time: 11/30/2019 3:04 PM Age: 39 years old Clinical indication: Injury or trauma; Injury history: Stubbed toe; Initial encounter; Blunt trauma; Toes; Right lesser toe(s); Additional info: Right 5th toe injury TECHNIQUE: Imaging protocol: XR Right toes. Views: Minimum 2 views. COMPARISON: CR Ankle, complete 01/17/2018 8:07 PM FINDINGS: Bones/joints: There may be a tiny fracture of the proximal plantar base of the middle phalanx of the 5th toe present seen on image 1 of series 4. Soft tissues: Mild soft tissue swelling is seen around the 5th toe. IMPRESSION: 1. There may be a tiny fracture of the proximal plantar base of the middle phalanx of the 5th toe present seen on image 1 of series 4. 2. Mild soft tissue swelling is seen around the 5th toe. Electronically signed by: Oswaldo Westfall On 11/30/2019 15:18:50 PM
[2019-11-30] MEDS ORDERED: IBUP1TAB7 PO (15:37)
[2019-11-30] MEDS ORDERED: NORCO, ANEXSIA 5/325MG TABLET (HYDROcodone/ACETAMINOPHEN) PO ONE (15:45)
[2020-01-24] MEDS ORDERED: CLON0.5T17 PO (14:30)
== END 2019-11-30 15:54 | disposition home or self-care (01) ==
LOC: M ED 14:22
DX: S92.351A Displaced fracture of fifth metatarsal bone, right foot, initial encounter for closed fracture (principal); W22.8XXA Striking against or struck by other objects, initial encounter; Y92.018 Other place in single-family (private) house as the place of occurrence of the external cause; Z79.899 Other long term (current) drug therapy

== ENCOUNTER 2020-01-11 20:25 | Inpatient (IN) | payer OTHER ==
[~2020-01-11] VITALS: Ht 166.4 cm; Wt 82.5 kg
[~2020-01-11 20:25] MED LIST changes: +DOXE100CA PO
[2020-01-11 21:47] LABS: HEMATOCRIT 39.8 % (36.0-47.0); HEMOGLOBIN 12.7 g/dl (12.0-15.5); MEAN CORPUSCULAR HEMOGLOBIN 29.1 pg (27.0-33.0); MEAN CORPUSCULAR HGB CONC 31.9 g/dl (32.0-36.5); MEAN CORPUSCULAR VOLUME 91.3 fl (80.0-96.0); PLATELET COUNT, AUTOMATED 233 10^3/uL (150-450); RED BLOOD COUNT 4.36 10^6/uL (4.00-5.40); WHITE BLOOD COUNT 7.1 10^3/uL (4.0-10.0)
[2020-01-11 22:14] LABS: AMPHETAMINES LEVEL URINE NEGATIVE (NEGATIVE); BARBITURATES URINE NEGATIVE (NEGATIVE); BENZODIAZEPINES URINE NEGATIVE (NEGATIVE); CANNABINOIDS URINE NEGATIVE (NEGATIVE); COCAINE METABOLITE URINE NEGATIVE (NEGATIVE); METHADONE URINE NEGATIVE (NEGATIVE); OPIATES URINE NEGATIVE (NEGATIVE); PHENCYCLIDINE URINE NEGATIVE (NEGATIVE)
[2020-01-11 22:19] LABS: HCG, SERUM QUALITATIVE NEGATIVE (NEGATIVE)
[2020-01-11 22:23] LABS: ACETAMINOPHEN LEVEL < 2.0 UG/ML (10.0-30.0); ALBUMIN 3.7 GM/DL (3.2-5.2); ALT/SGPT 30 U/L (12-78); BILIRUBIN,DIRECT < 0.1 MG/DL (0.0-0.2); BILIRUBIN,TOTAL 0.2 MG/DL (0.2-1.0); BLOOD UREA NITROGEN 9 MG/DL (7-18); CALCIUM LEVEL 9.2 MG/DL (8.5-10.1); CARBON DIOXIDE LEVEL 23 MEQ/L (21-32); CHLORIDE LEVEL 111 MEQ/L (98-107); ETHYL ALCOHOL (ETHANOL) 0.005 % (0.000-0.010); GLOMERULAR FILTRATION RATE > 60.0 (>58); GLUCOSE, FASTING 96 MG/DL (70-100); POTASSIUM SERUM 3.8 MEQ/L (3.5-5.1); SALICYLATE LEVEL 3.6 MG/DL (5.0-30.0); SODIUM LEVEL 140 MEQ/L (136-145); TOTAL PROTEIN 6.8 GM/DL (6.4-8.2)
[2020-01-11] MEDS ORDERED: SODIUM BICARBONATE 8.4% INJ 50 ML SYRINGE IV STA (22:33)
--- NOTE | 2020-01-11 23:07 | ECGEPIP ---
[facility] - ED Test Date: 2020-01-11 Pat Name: BIJAN MADDOX Department: Room: - Gender: Female Surveyor Mine: RADHA : 1980 Requested By: JONATHON VIDES Order Number: [id number] Reading MD: Roberto Lopez Measurements Intervals [place] Rate: 102 P: 54 MS: 192 QRS: 94 QRSD: 110 T: -2 QT: 384 QTc: 502 Interpretive Statements SINUS TACHYCARDIA BORDERLINE RIGHT AXIS DEVIATION ST DEVIATION AND MODERATE T-WAVE ABNORMALITY, CONSIDER ANTEROLATERAL ISCHEMIA Prolonged QTc interval Comparison tracing not on file Electronically Signed on 01-11-2020 23:06:41 EDT by Roberto Lopez
--- NOTE | 2020-01-11 23:12 | ECGEPIP ---
[facility] - ED Test Date: 2020-01-11 Pat Name: BIJAN MADDOX Department: Room: - Gender: Female Capacity Management Specialist: RADHA : 1980 Requested By: JONATHON VIDES Order Number: [id number] Reading MD: Roberto Lopez Measurements Intervals [place] Rate: 110 P: 87 VA: 203 QRS: 108 QRSD: 112 T: 13 QT: 381 QTc: 517 Interpretive Statements SINUS TACHYCARDIA RIGHT AXIS DEVIATION Prolonged QTc interval MODERATE INTRAVENTRICULAR CONDUCTION DELAY MODERATE T-WAVE ABNORMALITY, CONSIDER ANTERIOR ISCHEMIA Electronically Signed on 01-11-2020 23:12:21 EDT by Roberto Lopez
--- NOTE | 2020-01-11 23:59 | REPVR ---
PROCEDURE INFORMATION: Exam: XR Chest, 1 View Exam date and time: 01/11/2020 11:23 PM Age: 39 years old Clinical indication: Chest pain; Additional info: Overdose TECHNIQUE: Imaging protocol: XR of the chest Views: 1 view. COMPARISON: CR PORTABLE CHEST X-RAY 03/11/2018 8:34 AM FINDINGS: Limitations: Examination is limited by low inspiratory volume. Lungs: No right lung infiltrate. Suspect left lower lobe infiltrate. Pleural space: Unremarkable. No pleural effusion. No pneumothorax. Heart/Mediastinum: Unremarkable. No cardiomegaly. Bones/joints: Unremarkable. IMPRESSION: Suspect left lower lobe infiltrate. Electronically signed by: Jamee Alexander On 01/11/2020 23:58:50 PM
--- NOTE | 2020-01-12 01:58 | IPNPDOC ---
Text Note Date of Service The patient was seen on 01/12/20. NOTE TIME OF SERVICE 317 AM is a 39 yr old w a hx of depression who overdosed on Seroquel, mirtazapine and doxepin. On arrival in the ER she was lethargic and has remained sedated for over 5 hours. discussed the case with the Poison control center who recommended monitoring; he also gave the patient an amp of Bicarb. At the time of my evaluation she was unable to provide additional history. Her physical exam was unremarkable except for sedation and dry mucus membranes 1. Metabolic Encephalopathy 2/2 Polysubstance OD Plan: admit to PCU / frequent neurochecks / sitter / hold meds 2. Tachycardia possibly due to dehydration or OD EKG showed tachycardia w a rate of 107 and QTC of 434 Plan: telemetry / IVF 3. Possible Suicide Attempt / Depression Plan: sitter / day time team to consult Psych to determine if the pt is a candidate for IMHU once she is more alert rest per H&P VS,Dimple, I+O VS, Dimple, I+O Laboratory Tests 01/11/20 20:50 Vital Signs Date Time Temp Pulse Resp B/P (MAP) Pulse Ox O2 Delivery O2 Flow Rate FiO2 01/12/20 00:20 98 16 105/58 (74) 99 Nasal Cannula 2.0 01/11/20 23:20 98.2 ELIN POND MD Jan 12, 2020 01:58
[2020-01-12] MEDS ORDERED: GABA600T4 PO (02:36)
[2020-01-12] MEDS ORDERED: CLON-412 PO (02:36)
[2020-01-12] MEDS ORDERED: IBUP1TAB7 PO (02:36)
[2020-01-12] MEDS ORDERED: QUET400T PO (02:36)
[2020-01-12] MEDS ORDERED: PROAAER10 INH (02:36)
[2020-01-12] MEDS ORDERED: ATOR1TAB21 PO (02:36)
[2020-01-12] MEDS ORDERED: REME30TA PO (02:36)
[2020-01-12] MEDS ORDERED: FLUO40CA PO (02:36)
[2020-01-12] MEDS ORDERED: DOXE100CA PO (02:36)
[2020-01-12] MEDS ORDERED: CLON1TAB8 PO (02:36)
--- NOTE | 2020-01-12 02:40 | HPEPDOC ---
[facility] Medical History & Physical Date of Admission Jan 12, 2020 Date of Service: Jan 12, 2020 Attending Physician: ELIN POND MD History and Physical CHIEF COMPLAINT: Drug Overdose HISTORY OF PRESENT ILLNESS: Patient is a 39 year old female who was found by her to be lethargic and had indicated that she had "taken all of the pills" in a suicide attempt. The patient herself is unable to give a history as she is rather lethargic. The patient was transported to the [facility] ER per EMS. In the ED she was found to be lethargic, tachycardic but otherwise vitally stable. Review of her medication list revealed that she is on several antidepressant medications including tricyclic antidepressants. The patient was given Sodium Bicarbonate in the ED. Hospitalist service was consulted and the patient was admitted for further evaluation and management PAST MEDICAL HISTORY: Obtained from EMR as patient unable to give history 1. Depression 2. Anxiety PAST SURGICAL HISTORY: Patient unable to provide a surgical history. No prior documented surgeries in EMR SOCIAL HISTORY: Patient lives at home with . Social history not fully obtained as patient unable to provide FAMILY HISTORY: Unknown ALLERGIES: Please see below. REVIEW OF SYSTEMS: Unable to obtain full review of systems as patient is lethargic and does not answer questions HOME MEDICATIONS: Please see below. PHYSICAL EXAMINATION: VITAL SIGNS: Temperature 98.2, pulse 100, respiratory rate 16, blood pressure 138/74, pulse oximetry 99% on 2L GENERAL APPEARANCE: Patient is arousable to pain. She does not respond to questioning. She is tired appearing HEENT: Atraumatic, normocephalic. Eyes are nonicteric. Trachea is midline. Mucous membranes appear pink and moist. Nasal Cannula in place CARDIOVASCULAR: Normal S1, S2. Slightly tachycardic rate. Regular rhythm. No clicks rubs or murmurs LUNGS: Clear vesicular breath sounds bilaterally. No wheezes, rhonchi, or rales. Symmetric chest expansion ABDOMEN: Soft, nondistended. Nontender. Normoactive bowel sounds EXTREMITIES: No edema. Full and equal pulses bilaterally NEUROLOGICAL: No focal neurological deficits. Patient is lethargic and therefore unable to cooperate for a full neurological exam LABORATORY DATA: See below. IMAGING: PROCEDURE INFORMATION: Exam: XR Chest, 1 View Exam date and time: 01/11/2020 11:23 PM Age: 39 years old Clinical indication: Chest pain; Additional info: Overdose TECHNIQUE: Imaging protocol: XR of the chest Views: 1 view. COMPARISON: CR PORTABLE CHEST X-RAY 03/11/2018 8:34 AM FINDINGS: Limitations: Examination is limited by low inspiratory volume. Lungs: No right lung infiltrate. Suspect left lower lobe infiltrate. Pleural space: Unremarkable. No pleural effusion. No pneumothorax. Heart/Mediastinum: Unremarkable. No cardiomegaly. Bones/joints: Unremarkable. IMPRESSION: Suspect left lower lobe infiltrate. Electronically signed by: Jamee Alexander On 01/11/2020 23:58:50 PM MICROBIOLOGY: Please see below. ASSESSMENT: Patient is a 39 year old female with a past medical history of anxiety/depression who was found down at home per her in a suspected drug overdose . PLAN: 1. Metabolic Encephalopathy 2/2 Polysubstance abuse -Patient had reportedly written note indicating that she "took all the pills". Patient is on several medications including Doxepin, Seroquel, and Mirtazepin. -EKG on presentation showed sinus tachycardia. No prolongation of QTc interval. Sodium bicarbonate given in ED. Serum bicarbonate level is normal -Patient to remain on telemetry monitoring -Monitor electrolytes given possibility of TCA overdose -Will hold all sedating medications 2. Suicidal Ideation -Reportedly intentional overdose. Once medically cleared will need evaluation by Psychiatry 3. DVT Prophylaxis -Heparin SQ Vital Signs Vital Signs Date Time Temp Pulse Resp B/P (MAP) Pulse Ox O2 Delivery O2 Flow Rate FiO2 01/12/20 00:20 98 16 105/58 (74) 99 Nasal Cannula 2.0 01/11/20 23:20 98.2 Laboratory Data Labs 24H Laboratory Tests 2 01/11/20 20:50: Nucleated Red Blood Cells % (auto) 0.0, Anion Gap 6L, Glomerular Filtration Rate > 60.0, Calcium Level 9.2, Total Bilirubin 0.2, Direct Bilirubin < 0.1, Aspartate Amino Transf (AST/SGOT) 16, Alanine Aminotransferase (ALT/SGPT) 30, Alkaline Phosphatase 99, Total Protein 6.8, Albumin 3.7, Albumin/Globulin Ratio 1.2, Thyroid Stimulating Hormone (TSH) 7.360H, Human Chorionic Gonadotropin, Qual NEGATIVE, Salicylates Level 3.6L, Acetaminophen Level < 2.0L, Ethyl Alcohol Level 0.005 01/11/20 21:09: Urine Opiates Screen NEGATIVE, Urine Methadone Screen NEGATIVE, Urine Barbiturates Screen NEGATIVE, Urine Phencyclidine Screen NEGATIVE, Urine Amphetamines Screen NEGATIVE, Urine Benzodiazepines Screen NEGATIVE, Urine Cocaine Metabolite Screen NEGATIVE, Urine Cannabinoids Screen NEGATIVE CBC/BMP Laboratory Tests 01/11/20 20:50 Home Medications Scheduled Atorvastatin Calcium (Atorvastatin Calcium) 20 Mg Tablet, 20 MG PO QHS Clonazepam (Clonazepam) 1 Mg Tablet, 1.5 MG PO BID Doxepin HCl (Doxepin HCl) 100 Mg Capsule, 100 MG PO QHS Fluoxetine Hcl (Fluoxetine HCl) 40 Mg Capsule, 40 MG PO DAILY Mirtazapine (Remeron) 30 Mg Tablet, 30 MG PO QHS Quetiapine Fumarate (Quetiapine Fumarate) 400 Mg Tablet, 800 MG PO QHS Scheduled PRN Albuterol Sulfate (Proair Hfa) 8.5 Gm Hfa.aer.ad, 2 PUFF INH Q4H PRN for SHORTNESS OF BREATH Clonidine HCl (Clonidine HCl) 0.1 Mg Tablet, 0.1 MG PO TID PRN for ANXIETY Gabapentin (Gabapentin) 600 Mg Tablet, 600 MG PO TID PRN for PAIN Ibuprofen (Ibuprofen) 800 Mg Tablet, 800 MG PO TID PRN for PAIN Allergies Coded Allergies: No Known Allergies (Unverified , 01/17/19) A-FIB/CHADSVASC A-FIB History Current/History of A-Fib/PAF?: No GME ATTESTATION GME ATTESTATION My faculty preceptor for this patient encounter was physically present during the encounter and was fully available. All aspects of the patient interview, examination, medical decision making process, and medical care plan development were reviewed and approved by the faculty preceptor. The faculty preceptor is aware and concurs with the plan as stated in the body of this note and will attest to such by his/her cosignature. ATTENDING NOTE Pls see my addendum from 01/12/20 I reviewed 's H&P and agree with the findings as documented. EMMANUEL DELANEY DO Jan 12, 2020 02:40 ELIN POND MD Jan 12, 2020 04:29
[2020-01-12] MEDS: NS 0.45% 1,000 ML IV SCH ×3 (03:00→17:54)
[2020-01-12] MEDS ORDERED: PATIENT COMMENT (05:42)
[2020-01-12] MEDS: HEPARIN SOD (PORCINE) 5000UNITS/ML 1ML VIAL/SYRINGE SQ SCH ×3 (06:00→21:19)
[2020-01-12 07:15] LABS: HEMATOCRIT 41.2 % (36.0-47.0); HEMOGLOBIN 12.7 g/dl (12.0-15.5); MEAN CORPUSCULAR HEMOGLOBIN 28.5 pg (27.0-33.0); MEAN CORPUSCULAR HGB CONC 30.8 g/dl (32.0-36.5); MEAN CORPUSCULAR VOLUME 92.6 fl (80.0-96.0); PLATELET COUNT, AUTOMATED 220 10^3/uL (150-450); RED BLOOD COUNT 4.45 10^6/uL (4.00-5.40); WHITE BLOOD COUNT 6.1 10^3/uL (4.0-10.0)
[2020-01-12 07:41] LABS: ALBUMIN 3.4 GM/DL (3.2-5.2); ALT/SGPT 29 U/L (12-78); BILIRUBIN,TOTAL 0.4 MG/DL (0.2-1.0); BLOOD UREA NITROGEN 7 MG/DL (7-18); CALCIUM LEVEL 8.7 MG/DL (8.5-10.1); CARBON DIOXIDE LEVEL 26 MEQ/L (21-32); CHLORIDE LEVEL 111 MEQ/L (98-107); CREATININE FOR GFR 0.77 MG/DL (0.55-1.30); GLOMERULAR FILTRATION RATE > 60.0 (>58); GLUCOSE, FASTING 117 MG/DL (70-100); MAGNESIUM LEVEL 2.1 MG/DL (1.8-2.4); POTASSIUM SERUM 4.2 MEQ/L (3.5-5.1); SODIUM LEVEL 143 MEQ/L (136-145); TOTAL PROTEIN 6.2 GM/DL (6.4-8.2)
[2020-01-12 09:00] VITALS: BP 131/85
[2020-01-12 12:00] VITALS: BP 114/72
[2020-01-12] MEDS: ONDANSETRON 4MG/2ML VIAL IV PRN ×3 (12:40→23:51)
[2020-01-12 16:00] VITALS: BP 129/84
[2020-01-12] MEDS ORDERED: LORazepam 0.5 MG TAB PO STA (18:01)
[2020-01-12 20:00] VITALS: BP 118/66
[2020-01-13] VITALS: BP 137/83
[2020-01-13] MEDS: NS 0.45% 1,000 ML IV SCH ×2 (01:37→09:43)
[2020-01-13 04:00] VITALS: BP 134/81
[2020-01-13 05:36] LABS: HEMATOCRIT 38.3 % (36.0-47.0); HEMOGLOBIN 12.2 g/dl (12.0-15.5); MEAN CORPUSCULAR HEMOGLOBIN 29.5 pg (27.0-33.0); MEAN CORPUSCULAR HGB CONC 31.9 g/dl (32.0-36.5); MEAN CORPUSCULAR VOLUME 92.7 fl (80.0-96.0); PLATELET COUNT, AUTOMATED 164 10^3/uL (150-450); RED BLOOD COUNT 4.13 10^6/uL (4.00-5.40); WHITE BLOOD COUNT 5.5 10^3/uL (4.0-10.0)
[2020-01-13] MEDS: ONDANSETRON 4MG/2ML VIAL IV PRN ×3 (05:59→21:39)
[2020-01-13] MEDS: HEPARIN SOD (PORCINE) 5000UNITS/ML 1ML VIAL/SYRINGE SQ SCH ×3 (05:59→21:34)
[2020-01-13 08:00] VITALS: BP 133/83
[2020-01-13 12:00] VITALS: BP 112/68
[2020-01-13 12:50] LABS: BLOOD UREA NITROGEN 6 MG/DL (7-18); CREATININE FOR GFR 0.77 MG/DL (0.55-1.30); GLUCOSE, FASTING 108 MG/DL (70-100)
[2020-01-13 12:51] LABS: ALBUMIN 3.3 GM/DL (3.2-5.2); ALT/SGPT 29 U/L (12-78); BILIRUBIN,TOTAL 0.3 MG/DL (0.2-1.0); CALCIUM LEVEL 8.8 MG/DL (8.5-10.1); CARBON DIOXIDE LEVEL 25 MEQ/L (21-32); CHLORIDE LEVEL 112 MEQ/L (98-107); GLOMERULAR FILTRATION RATE > 60.0 (>58); POTASSIUM SERUM 3.9 MEQ/L (3.5-5.1); SODIUM LEVEL 141 MEQ/L (136-145); TOTAL PROTEIN 6.5 GM/DL (6.4-8.2)
--- NOTE | 2020-01-13 13:59 | IPNPDOC ---
Date Seen The patient was seen on 01/13/20. Progress Note SUBJECTIVE: The patient is more awake and alert this morning. She is able to tell me that she is on probation and has a problem with stealing things. She has been overwhelmed at home taking care of her family, she states a lot of people depend on her and her care. She states that this was too much for her and she wanted to end her life yesterday. I spoke with psychiatry, Dr. Gallego, who will be assessing her today. She will need inpatient psychiatry treatment. Denies chest pain, nausea, vomiting, fevers or chills. OBJECTIVE: VITAL SIGNS: Please see below PHYSICAL EXAMINATION: CONSTITUTIONAL: No acute distress, resting comfortably, AAO x 3 EYES: PERRLA, EOM intact HENT, MOUTH: Normocephalic, atraumatic, moist mucous membranes NECK: SUPPLE, no JVD, no lymphadenopathy, no carotid bruit CV: Regular rate and rhythm, S1S2 normal, no murmurs/rubs/gallops RESPIRATORY: Clear to auscultation bilaterally, no rales/rhonchi/wheezes GI: BS positive in 4 quadrants, soft, nontender, nondistended, no rebound or guarding, no organomegaly : Deferred MUSCULOSKELETAL: Normal ROM. No cyanosis, clubbing, swelling, joint deformity, extremity edema INTEGUMENTARY: Intact, no rashes, no lesions, no erythema NEUROLOGIC: Cranial Nerves II-XII are intact, no focal deficits PSYCHIATRIC: Mood and affect are normal CURRENT MEDICATIONS: Please see below LABORATORY DATA: Please see below IMAGING: None ASSESSMENT: 39 y/o F with PMH of depression and anxiety admitted for polysubstance overdose, suicidal attempt. PLAN: 1. Toxic encephalopathy 2/2 to polysubstance overdose, suicide attempt. - Currently AAOx3, following commands -Patient admits to trying to kill herself with an overdose -Will awaiting psychiatry input, will need IM -Dr. Gallego to see later today 2. Hx of anxiety/depression -Please see above 3. DVT px -Heparin DISPOSITION: Psych to see later this afternoon. Plan is IMHU after he assesses. VS, I&O, 24H, Fishbone Vital Signs/I&O Vital Signs Date Time Temp Pulse Resp B/P (MAP) Pulse Ox O2 Delivery O2 Flow Rate FiO2 01/13/20 12:00 98.0 86 18 112/68 (83) 94 Room Air 01/12/20 06:30 2.0 I&O- Last 24 Hours up to 6 AM 01/13/20 06:00 Intake Total 330 ml Output Total 2275 ml Balance -1945 ml Laboratory Data 24H LABS Laboratory Tests 2 01/13/20 04:51: Nucleated Red Blood Cells % (auto) 0.0 01/13/20 12:03: Anion Gap 4L, Glomerular Filtration Rate > 60.0, Calcium Level 8.8, Total Bilirubin 0.3, Aspartate Amino Transf (AST/SGOT) 18, Alanine Aminotransferase (ALT/SGPT) 29, Alkaline Phosphatase 97, Total Protein 6.5, Albumin 3.3, Albumin/Globulin Ratio 1.0L CBC/BMP Laboratory Tests 01/13/20 04:51 01/13/20 12:03 Current Medications Current Medications Medications (Trade) Dose Ordered Sig/Petr Route PRN Reason Start Time Stop Time Status Last Admin Dose Admin Heparin Sodium (Porcine) (Heparin) 5,000 units Q8H SQ 01/12/20 06:00 01/13/20 05:59 Home Med (Med Rec Complete!) ASDIRECTED XX 01/12/20 05:45 01/12/20 05:44 DC Lorazepam (Ativan) 0.5 mg STAT STAT PO 01/12/20 18:01 01/12/20 18:02 DC 01/12/20 18:24 Ondansetron HCl (ZOFRAN INJection) 4 mg Q6HP PRN IV NAUSEA OR VOMITING 01/12/20 10:00 01/13/20 09:43 Sodium Bicarbonate (Sodium Bicarbonate) 50 meq STAT STAT IV 01/11/20 22:33 01/11/20 22:36 DC 01/11/20 22:56 Sodium Chloride 1,000 ml @ 125 mls/hr Q8H IV 01/12/20 03:00 01/13/20 09:43 Allergies Coded Allergies: No Known Allergies (Unverified , 01/17/19) Dorothy Khan MD Jan 13, 2020 13:59
[2020-01-13] MEDS: PROMETHAZINE 25 MG TAB PO PRN ×2 (15:28→21:49)
[2020-01-13 16:00] VITALS: BP 127/71
[2020-01-13 20:00] VITALS: BP 132/76
[2020-01-13] MEDS ORDERED: zolPIDEM TARTRATE 5 MG TAB PO SCH (21:00)
[2020-01-14] VITALS: BP 123/61
[2020-01-14 04:00] VITALS: BP 102/58
[2020-01-14] MEDS: HEPARIN SOD (PORCINE) 5000UNITS/ML 1ML VIAL/SYRINGE SQ SCH ×3 (06:35→20:53)
[2020-01-14] MEDS ORDERED: ALBUTEROL 90 MCG/ACT 8GM HFA INHALER INH PRN (08:15)
[2020-01-14 09:06] LABS: HEMATOCRIT 43.1 % (36.0-47.0); MEAN CORPUSCULAR HEMOGLOBIN 29.7 pg (27.0-33.0); MEAN CORPUSCULAR HGB CONC 32.5 g/dl (32.0-36.5); MEAN CORPUSCULAR VOLUME 91.3 fl (80.0-96.0); PLATELET COUNT, AUTOMATED 246 10^3/uL (150-450); RED BLOOD COUNT 4.72 10^6/uL (4.00-5.40); WHITE BLOOD COUNT 5.5 10^3/uL (4.0-10.0)
[2020-01-14 09:31] LABS: ALBUMIN 3.7 GM/DL (3.2-5.2); ALT/SGPT 29 U/L (12-78); BILIRUBIN,TOTAL 0.2 MG/DL (0.2-1.0); BLOOD UREA NITROGEN 11 MG/DL (7-18); CALCIUM LEVEL 9.2 MG/DL (8.5-10.1); CARBON DIOXIDE LEVEL 23 MEQ/L (21-32); CHLORIDE LEVEL 109 MEQ/L (98-107); CREATININE FOR GFR 0.84 MG/DL (0.55-1.30); GLOMERULAR FILTRATION RATE > 60.0 (>58); GLUCOSE, FASTING 119 MG/DL (70-100); POTASSIUM SERUM 4.3 MEQ/L (3.5-5.1); SODIUM LEVEL 140 MEQ/L (136-145)
[2020-01-14] MEDS: PROMETHAZINE 25 MG TAB PO PRN ×2 (11:07→16:22)
[2020-01-14 12:00] VITALS: BP 108/58
[2020-01-14] MEDS ORDERED: ONDANSETRON 4 MG ORAL DISINTEGRATING TAB PO PRN (13:30)
--- NOTE | 2020-01-14 13:35 | IPNPDOC ---
Date Seen The patient was seen on 01/14/20. Progress Note SUBJECTIVE: Seen by psychiatry last evening. Dr. Gallego suggested only restarting mirtazipine and seroquel HS but at lower doses. Complains of nausea, zofran and phenergan PRN. Denies chest pain, nausea, vomiting, fevers or chills. OBJECTIVE: VITAL SIGNS: Please see below PHYSICAL EXAMINATION: CONSTITUTIONAL: No acute distress, resting comfortably, AAO x 3 EYES: PERRLA, EOM intact HENT, MOUTH: Normocephalic, atraumatic, moist mucous membranes NECK: SUPPLE, no JVD, no lymphadenopathy, no carotid bruit CV: Regular rate and rhythm, S1S2 normal, no murmurs/rubs/gallops RESPIRATORY: Clear to auscultation bilaterally, no rales/rhonchi/wheezes GI: obese abd, BS positive in 4 quadrants, soft, nontender, nondistended, no rebound or guarding, no organomegaly : Deferred MUSCULOSKELETAL: Normal ROM. No cyanosis, clubbing, swelling, joint deformity, extremity edema INTEGUMENTARY: Intact, no rashes, no lesions, no erythema NEUROLOGIC: Cranial Nerves II-XII are intact, no focal deficits PSYCHIATRIC: Mood and affect are normal CURRENT MEDICATIONS: Please see below LABORATORY DATA: Please see below IMAGING: None ASSESSMENT: 39 y/o F with PMH of depression and anxiety admitted for polysubstance overdose, suicidal attempt. PLAN: Intentional polysubstance overdose, suicide attempt. Hx of depression -Currently AAOx3, following commands -Mirtazipine, seroquel both restarted but at lower doses. All other medications held per psych. -Awaiting bed in [facility] -Dr. Gallego to see this weekend. -All psych medications will be managed by psychiatry only. Nausea possibly 2/2 to overdose -phenergan, zofran PRN Insomnia -Do not add standing dose medication in addition to current HS medication for sleep please -Can give one time dose benadryl if needed. Hx of anxiety/depression -Please see above HLD -C/w statin DVT px -Heparin DISPOSITION: No beds in [facility] currently. Holding inpatient until a bed opens up, either over weekend or 01/16/20. VS, I&O, 24H, Fishbone Vital Signs/I&O Vital Signs Date Time Temp Pulse Resp B/P (MAP) Pulse Ox O2 Delivery O2 Flow Rate FiO2 01/14/20 12:00 97.5 84 20 108/58 (75) 95 Room Air 01/12/20 06:30 2.0 I&O- Last 24 Hours up to 6 AM 01/14/20 06:00 Intake Total 1500 ml Output Total 400 ml Balance 1100 ml Laboratory Data 24H LABS Laboratory Tests 2 01/14/20 08:44: Anion Gap 8, Glomerular Filtration Rate > 60.0, Calcium Level 9.2, Total Bilirubin 0.2, Aspartate Amino Transf (AST/SGOT) 14, Alanine Aminotransferase (ALT/SGPT) 29, Alkaline Phosphatase 110, Total Protein 7.0, Albumin 3.7, Albumin/Globulin Ratio 1.1L 01/14/20 08:45: Nucleated Red Blood Cells % (auto) 0.0 CBC/BMP Laboratory Tests 01/14/20 08:44 01/14/20 08:45 Current Medications Current Medications Medications (Trade) Dose Ordered Sig/Petr Route PRN Reason Start Time Stop Time Status Last Admin Dose Admin Albuterol Sulfate (Proventil, Ventolin Hfa) 2 puff Q4H PRN INH SHORTNESS OF BREATH 01/14/20 08:15 Atorvastatin Calcium (Lipitor) 20 mg QHS PO 01/14/20 21:00 Heparin Sodium (Porcine) (Heparin) 5,000 units Q8H SQ 01/12/20 06:00 01/14/20 06:35 Home Med (Med Rec Complete!) ASDIRECTED XX 01/12/20 05:45 01/12/20 05:44 DC Lorazepam (Ativan) 0.5 mg STAT STAT PO 01/12/20 18:01 01/12/20 18:02 DC 01/12/20 18:24 Mirtazapine (Remeron) 15 mg QHS PO 01/14/20 21:00 Ondansetron HCl (ZOFRAN INJection) 4 mg Q6HP PRN IV NAUSEA OR VOMITING 01/12/20 10:00 01/13/20 21:39 Promethazine HCl (Phenergan) 25 mg QIDP PRN PO NAUSEA OR VOMITING 01/13/20 14:45 01/14/20 11:07 Quetiapine Fumarate (SEROquel) 200 mg QHS PO 01/14/20 21:00 Sodium Bicarbonate (Sodium Bicarbonate) 50 meq STAT STAT IV 01/11/20 22:33 01/11/20 22:36 DC 01/11/20 22:56 Sodium Chloride 1,000 ml @ 125 mls/hr Q8H IV 01/12/20 03:00 01/13/20 13:58 DC 01/13/20 09:43 Zolpidem Tartrate (Ambien) 5 mg QHS PO 01/13/20 21:00 01/13/20 21:34 Allergies Coded Allergies: No Known Allergies (Unverified , 01/17/19) Dorothy Khan MD Jan 14, 2020 13:35
[2020-01-14 14:55] VITALS: BP 120/87
[2020-01-14] MEDS: ACETAMINOPHEN TAB 650MG DOSE (2X325MG) PO PRN (20:47)
[2020-01-14] MEDS: ATORVASTATIN 20 MG TAB PO SCH (20:47)
[2020-01-14] MEDS: QUEtiapine FUMARATE 200 MG TAB PO SCH (20:47)
[2020-01-14] MEDS: MIRTAZAPINE 15 MG TAB PO SCH (20:47)
[2020-01-14 22:00] VITALS: BP 115/72
[2020-01-15] MEDS: HEPARIN SOD (PORCINE) 5000UNITS/ML 1ML VIAL/SYRINGE SQ SCH ×3 (05:23→20:56)
[2020-01-15] MEDS: PROMETHAZINE 25 MG TAB PO PRN ×3 (05:25→22:57)
[2020-01-15 05:51] LABS: HEMATOCRIT 45.5 % (36.0-47.0); HEMOGLOBIN 14.6 g/dl (12.0-15.5); MEAN CORPUSCULAR HEMOGLOBIN 29.5 pg (27.0-33.0); MEAN CORPUSCULAR HGB CONC 32.1 g/dl (32.0-36.5); MEAN CORPUSCULAR VOLUME 91.9 fl (80.0-96.0); PLATELET COUNT, AUTOMATED 232 10^3/uL (150-450); RED BLOOD COUNT 4.95 10^6/uL (4.00-5.40); WHITE BLOOD COUNT 6.7 10^3/uL (4.0-10.0)
[2020-01-15 06:00] VITALS: BP 112/63
[2020-01-15] MEDS: ACETAMINOPHEN TAB 650MG DOSE (2X325MG) PO PRN ×3 (10:31→20:55)
--- NOTE | 2020-01-15 13:11 | IPNPDOC ---
Date Seen The patient was seen on 01/15/20. Progress Note SUBJECTIVE: Difficulty sleeping, adding benadryl prn. She complains of IBD cramping, adding bentyl. No beds in [facility] so will stay another night on floor then hopefully transfer to unit 01/16/20. Denies chest pain, fevers or chills. OBJECTIVE: VITAL SIGNS: Please see below PHYSICAL EXAMINATION: CONSTITUTIONAL: No acute distress, resting comfortably, AAO x 3 EYES: PERRLA, EOM intact HENT, MOUTH: Normocephalic, atraumatic, moist mucous membranes NECK: SUPPLE, no JVD, no lymphadenopathy, no carotid bruit CV: Regular rate and rhythm, S1S2 normal, no murmurs/rubs/gallops RESPIRATORY: Clear to auscultation bilaterally, no rales/rhonchi/wheezes GI: obese abd, BS positive in 4 quadrants, soft, nontender, nondistended, no rebound or guarding, no organomegaly : Deferred MUSCULOSKELETAL: Normal ROM. No cyanosis, clubbing, swelling, joint deformity, extremity edema INTEGUMENTARY: Intact, no rashes, no lesions, no erythema NEUROLOGIC: Cranial Nerves II-XII are intact, no focal deficits PSYCHIATRIC: Mood and affect are normal CURRENT MEDICATIONS: Please see below LABORATORY DATA: Please see below IMAGING: None ASSESSMENT: 39 y/o F with PMH of depression and anxiety admitted for polysubstance overdose, suicidal attempt. PLAN: Intentional polysubstance overdose, suicide attempt. Hx of depression -Currently AAOx3, following commands -C/w low dose Mirtazipine, seroquel. All other medications held per psych. -Awaiting bed in [facility], Dr. Gallego -All psych medications will be managed by psychiatry only. Nausea possibly 2/2 to overdose -phenergan, zofran PRN Insomnia -Do not add standing dose medication in addition to current HS medication for sleep please -Benadryl PRN IBS -No abdominal pain but admits to cramping. -Adding Bentyl Hx of anxiety/depression -Please see above HLD -C/w statin DVT px -Heparin DISPOSITION: No beds in [facility] currently. Holding inpatient until a bed opens up, either over weekend or 01/16/20. VS, I&O, 24H, Fishbone Vital Signs/I&O Vital Signs Date Time Temp Pulse Resp B/P (MAP) Pulse Ox O2 Delivery O2 Flow Rate FiO2 01/15/20 06:00 99.3 76 16 112/63 (79) 94 Room Air 01/12/20 06:30 2.0 I&O- Last 24 Hours up to 6 AM 01/15/20 06:00 Intake Total 2220 ml Output Total 0 ml Balance 2220 ml Laboratory Data 24H LABS Laboratory Tests 2 01/15/20 05:29: Nucleated Red Blood Cells % (auto) 0.0 CBC/BMP Laboratory Tests 01/15/20 05:29 Current Medications Current Medications Medications (Trade) Dose Ordered Sig/Petr Route PRN Reason Start Time Stop Time Status Last Admin Dose Admin Acetaminophen (Tylenol Tab) 650 mg Q6HP PRN PO PAIN / FEVER 01/14/20 20:30 01/15/20 10:31 Albuterol Sulfate (Proventil, Ventolin Hfa) 2 puff Q4H PRN INH SHORTNESS OF BREATH 01/14/20 08:15 Atorvastatin Calcium (Lipitor) 20 mg QHS PO 01/14/20 21:00 01/14/20 20:47 Heparin Sodium (Porcine) (Heparin) 5,000 units Q8H SQ 01/12/20 06:00 01/15/20 05:23 Home Med (Med Rec Complete!) ASDIRECTED XX 01/12/20 05:45 01/12/20 05:44 DC Lorazepam (Ativan) 0.5 mg STAT STAT PO 01/12/20 18:01 01/12/20 18:02 DC 01/12/20 18:24 Mirtazapine (Remeron) 15 mg QHS PO 01/14/20 21:00 01/14/20 20:47 Ondansetron HCl (ZOFRAN INJection) 4 mg Q6HP PRN IV NAUSEA OR VOMITING 01/12/20 10:00 01/14/20 13:30 DC 01/13/20 21:39 Ondansetron HCl (Zofran Odt) 4 mg Q6HP PRN PO NAUSEA OR VOMITING 01/14/20 13:30 01/15/20 10:31 Promethazine HCl (Phenergan) 25 mg QIDP PRN PO NAUSEA OR VOMITING 01/13/20 14:45 01/15/20 05:25 Quetiapine Fumarate (SEROquel) 200 mg QHS PO 01/14/20 21:00 01/14/20 20:47 Sodium Bicarbonate (Sodium Bicarbonate) 50 meq STAT STAT IV 01/11/20 22:33 01/11/20 22:36 DC 01/11/20 22:56 Sodium Chloride 1,000 ml @ 125 mls/hr Q8H IV 01/12/20 03:00 01/13/20 13:58 DC 01/13/20 09:43 Zolpidem Tartrate (Ambien) 5 mg QHS PO 01/13/20 21:00 01/14/20 13:30 DC 01/13/20 21:34 Allergies Coded Allergies: No Known Allergies (Unverified , 01/17/19) Dorothy Khan MD Jan 15, 2020 13:11
[2020-01-15] MEDS ORDERED: diphenhydrAMINE 25MG CAP PO PRN (13:15)
[2020-01-15 14:30] VITALS: BP 115/72
[2020-01-15] MEDS: DICYCLOMINE 10 MG CAP PO PRN ×2 (16:58→22:57)
[2020-01-15] MEDS ORDERED: ACET1TAB55 PO (17:53)
[2020-01-15] MEDS ORDERED: DICY1CAP8 PO (17:53)
[2020-01-15] MEDS ORDERED: REME15TA PO (17:53)
[2020-01-15] MEDS ORDERED: QUET200T2 PO (17:53)
[2020-01-15] MEDS: MIRTAZAPINE 15 MG TAB PO SCH (20:56)
[2020-01-15] MEDS: QUEtiapine FUMARATE 200 MG TAB PO SCH (20:56)
[2020-01-15] MEDS: ATORVASTATIN 20 MG TAB PO SCH (20:56)
[2020-01-15 22:00] VITALS: BP 124/69
[2020-01-16] MEDS: HEPARIN SOD (PORCINE) 5000UNITS/ML 1ML VIAL/SYRINGE SQ SCH ×2 (05:45→14:00)
[2020-01-16 06:00] VITALS: BP 106/54
[2020-01-16] MEDS: ACETAMINOPHEN TAB 650MG DOSE (2X325MG) PO PRN ×2 (08:15→14:27)
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
[2020-01-16] MEDS: DICYCLOMINE 10 MG CAP PO PRN (10:16)
[2020-01-16] MEDS: PROMETHAZINE 25 MG TAB PO PRN (10:16)
--- NOTE | 2020-01-16 11:30 | IPNPDOC ---
Date Seen The patient was seen on 01/16/20. Progress Note SUBJECTIVE: Difficulty sleeping, benadryl prn. Nursing to reach out to Dr. Gallego. Abd cramping controlled with bentyl. Still waiting for bed in [facility]. Denies chest pain, fevers or chills. OBJECTIVE: VITAL SIGNS: Please see below PHYSICAL EXAMINATION: CONSTITUTIONAL: No acute distress, resting comfortably, AAO x 3 EYES: PERRLA, EOM intact HENT, MOUTH: Normocephalic, atraumatic, moist mucous membranes NECK: SUPPLE, no JVD, no lymphadenopathy, no carotid bruit CV: Regular rate and rhythm, S1S2 normal, no murmurs/rubs/gallops RESPIRATORY: Clear to auscultation bilaterally, no rales/rhonchi/wheezes GI: obese abd, BS positive in 4 quadrants, soft, nontender, nondistended, no rebound or guarding, no organomegaly : Deferred MUSCULOSKELETAL: Normal ROM. No cyanosis, clubbing, swelling, joint deformity, extremity edema INTEGUMENTARY: Intact, no rashes, no lesions, no erythema NEUROLOGIC: Cranial Nerves II-XII are intact, no focal deficits PSYCHIATRIC: Mood and affect are normal CURRENT MEDICATIONS: Please see below LABORATORY DATA: Please see below IMAGING: None ASSESSMENT: 39 y/o F with PMH of depression and anxiety admitted for polysubstance overdose, suicidal attempt. PLAN: Intentional polysubstance overdose, suicide attempt. Hx of depression -Currently AAOx3, following commands -C/w low dose Mirtazipine, seroquel. All other medications held per psych. -Awaiting bed in [facility], Dr. Gallego -All psych medications will be managed by psychiatry. Nausea possibly 2/2 to overdose -Improved -phenergan, zofran PRN Insomnia -Do not add standing dose medication in addition to current HS medication for sleep please -Benadryl PRN unless psych recommends alternative IBS -Abd cramping improved -C/w Bentyl Hx of anxiety/depression -Please see above HLD -C/w statin DVT px -Heparin DISPOSITION: No beds in [facility] currently. Holding inpatient until a bed opens up. Dr. Gallego is following patient. . VS, I&O, 24H, Fishbone Vital Signs/I&O Vital Signs Date Time Temp Pulse Resp B/P (MAP) Pulse Ox O2 Delivery O2 Flow Rate FiO2 01/16/20 06:00 98.0 82 16 106/54 (71) 94 Room Air 01/12/20 06:30 2.0 I&O- Last 24 Hours up to 6 AM 01/16/20 06:00 Intake Total 1320 ml Balance 1320 ml Current Medications Current Medications Medications (Trade) Dose Ordered Sig/Petr Route PRN Reason Start Time Stop Time Status Last Admin Dose Admin Acetaminophen (Tylenol Tab) 650 mg Q6HP PRN PO PAIN / FEVER 01/14/20 20:30 01/16/20 08:15 Albuterol Sulfate (Proventil, Ventolin Hfa) 2 puff Q4H PRN INH SHORTNESS OF BREATH 01/14/20 08:15 Atorvastatin Calcium (Lipitor) 20 mg QHS PO 01/14/20 21:00 01/15/20 20:56 Dicyclomine HCl (Bentyl) 10 mg QIDP PRN PO CRAMPS 01/15/20 13:15 01/16/20 10:16 Diphenhydramine HCl (Benadryl) 25 mg QHSP PRN PO INSOMNIA 01/15/20 13:15 01/15/20 20:56 Heparin Sodium (Porcine) (Heparin) 5,000 units Q8H SQ 01/12/20 06:00 01/15/20 05:23 Home Med (Med Rec Complete!) ASDIRECTED XX 01/12/20 05:45 01/12/20 05:44 DC Lorazepam (Ativan) 0.5 mg STAT STAT PO 01/12/20 18:01 01/12/20 18:02 DC 01/12/20 18:24 Mirtazapine (Remeron) 15 mg QHS PO 01/14/20 21:00 01/15/20 20:56 Ondansetron HCl (ZOFRAN INJection) 4 mg Q6HP PRN IV NAUSEA OR VOMITING 01/12/20 10:00 01/14/20 13:30 DC 01/13/20 21:39 Ondansetron HCl (Zofran Odt) 4 mg Q6HP PRN PO NAUSEA OR VOMITING 01/14/20 13:30 01/15/20 10:31 Promethazine HCl (Phenergan) 25 mg QIDP PRN PO NAUSEA OR VOMITING 01/13/20 14:45 01/16/20 10:16 Quetiapine Fumarate (SEROquel) 200 mg QHS PO 01/14/20 21:00 01/15/20 20:56 Sodium Bicarbonate (Sodium Bicarbonate) 50 meq STAT STAT IV 01/11/20 22:33 01/11/20 22:36 DC 01/11/20 22:56 Sodium Chloride 1,000 ml @ 125 mls/hr Q8H IV 01/12/20 03:00 01/13/20 13:58 DC 01/13/20 09:43 Zolpidem Tartrate (Ambien) 5 mg QHS PO 01/13/20 21:00 01/14/20 13:30 DC 01/13/20 21:34 Allergies Coded Allergies: No Known Allergies (Unverified , 01/17/19) Dorothy Khan MD Jan 16, 2020 11:30
--- NOTE | 2020-01-16 13:27 | MHIPN ---
DATE: 01/15/2020 The patient is seen on the medical floor, there are no beds available yet at the inpatient psychiatry unit, therefore she has not been transferred yet. Says did not sleep yesterday, this is in contrast to what staff tells me, indicating that she has been sleeping. She feels she slept the previous night. Feels a bit better. Indicates had put on quite a bit of weight on the Seroquel, and would want to consider an alternative to it. MENTAL STATUS EXAMINATION: Neat, cooperative, no agitation at present, appears mildly anxious, less so than she had initially, she is coherent. Denies any active suicidal thoughts or intents. No evidence of psychosis. Cognition intact. Judgment and insight remain impaired. ASSESSMENT: Bipolar disorder, current episode depressed. Status post overdose. No evidence of any delirium. Given the above, and concerns regarding Seroquel, I suggest that she continue with Seroquel at 200 mg at night for now, but once seen in the inpatient unit, may need to consider a switch over, for example using Latuda, or another atypical antipsychotic. Would avoid using an antidepressant, would minimize the use of mirtazapine at the current dose of 15 mg at night. It is preferable avoiding resuming doxepin. Would suggest Ambien 5 mg at night as needed for sleep, in the short-term. She will be transferred to the inpatient psychiatric unit when a bed is available, expected within the next 24 hours, and further recommendations will be made by the assigned clinician. PENNY
[2020-01-16] MEDS ORDERED: AMBI5TAB PO (13:43)
--- NOTE | 2020-01-16 13:55 | DS.PDOC ---
Discharge Summary General Date of Admission Jan 12, 2020 at 01:26 Date of Discharge 01/16/20 Attending Physician: Dorothy Khan MD Discharge Summary HISTORY OF PRESENT ILLNESS: Patient is a 39 year old female who was found by her to be lethargic and had indicated that she had "taken all of the pills" in a suicide attempt. The patient herself is unable to give a history as she is rather lethargic. The patient was transported to the [facility] ER per EMS. In the ED she was found to be lethargic, tachycardic but otherwise vitally stable. Review of her medication list revealed that she is on several antidepressant medications including tricyclic antidepressants. The patient was given Sodium Bicarbonate in the ED. Hospitalist service was consulted and the patient was admitted for further evaluation and management HOSPITAL COURSE: Chest x-ray showed questionable left lower lobe infiltrate; however, the patient had no signs or symptoms of infection and remained stable on room air. She was not started on antibiotics. Patient was kept NPO and on IVFs overnight. Patient admitted when more awake that she intentionally swallowed multiple pills of unk nown amount to "sleep and not wake up". She states she's had issues with stealing and is currently on probation. She admitted to increased feelings of hopelessness, getting tearful, increased anxiety. She was assessed by psychiatry during her hospital stay and found to need inpatient psychiatry treatment. There were several days where she was waiting for a bed to become available. Raynaud's days the patient complained of increased abdominal pain secondary to her IVS, Bentyl was started. She also complained of insomnia, she was later started on Ambien. On 01/16/2020 the patient was discharged from acute inpatient to [facility]. PAST MEDICAL HISTORY: 1. Depression 2. Anxiety PAST SURGICAL HISTORY: Patient unable to provide a surgical history. No prior documented surgeries in EMR SOCIAL HISTORY: Patient lives at home with . Social history not fully obtained as patient unable to provide FAMILY HISTORY: Unknown ALLERGIES: Please see below. CURRENT MEDICATIONS: Please see below PHYSICAL EXAMINATION: CONSTITUTIONAL: No acute distress, resting comfortably, AAO x 3 EYES: PERRLA, EOM intact HENT, MOUTH: Normocephalic, atraumatic, moist mucous membranes NECK: SUPPLE, no JVD, no lymphadenopathy, no carotid bruit CV: Regular rate and rhythm, S1S2 normal, no murmurs/rubs/gallops RESPIRATORY: Clear to auscultation bilaterally, no rales/rhonchi/wheezes GI: obese abd, BS positive in 4 quadrants, soft, nontender, nondistended, no rebound or guarding, no organomegaly : Deferred MUSCULOSKELETAL: Normal ROM. No cyanosis, clubbing, swelling, joint deformity, extremity edema INTEGUMENTARY: Intact, no rashes, no lesions, no erythema NEUROLOGIC: Cranial Nerves II-XII are intact, no focal deficits PSYCHIATRIC: Mood and affect are normal CURRENT MEDICATIONS: Please see below LABORATORY DATA: Please see below IMAGING: None ASSESSMENT: 39 y/o F with PMH of depression and anxiety admitted for polysubstance overdose, suicidal attempt. PLAN: Intentional polysubstance overdose, suicide attempt. Hx of depression -Currently AAOx3, following commands -C/w low dose Mirtazipine, seroquel. All other medications held per psych. -All psych medications will be managed by psychiatry. Nausea possibly 2/2 to overdose -Improved Insomnia -Ambien PRNHS IBS -Abd cramping improved -C/w Bentyl Hx of anxiety/depression -Please see above HLD -C/w statin DISPOSITION: Discharging today to [facility]. TIME SPENT ON DISCHARGE: Greater than 30 minutes. Vital Signs/I&Os Vital Signs Date Time Temp Pulse Resp B/P (MAP) Pulse Ox O2 Delivery O2 Flow Rate FiO2 01/16/20 06:00 98.0 82 16 106/54 (71) 94 Room Air 01/12/20 06:30 2.0 I&O- Last 24 Hours up to 6 AM 01/16/20 06:00 Intake Total 1320 ml Balance 1320 ml Discharge Medications Scheduled Atorvastatin Calcium (Atorvastatin Calcium) 20 Mg Tablet, 20 MG PO QHS, (Reported) Mirtazapine (Remeron) 15 Mg Tablet, 15 MG PO QHS Quetiapine Fumarate (Quetiapine Fumarate) 200 Mg Tablet, 200 MG PO QHS Scheduled PRN Acetaminophen (Acetaminophen) 325 Mg Tablet, 650 MG PO Q8HP PRN for PAIN / FEVER Albuterol Sulfate (Proair Hfa) 8.5 Gm Hfa.aer.ad, 2 PUFF INH Q4H PRN for SHORTNESS OF BREATH, (Reported) Dicyclomine HCl (Dicyclomine HCl) 10 Mg Capsule, 10 MG PO QIDP PRN for CRAMPS Zolpidem Tartrate (Ambien) 5 Mg Tablet, 5 MG PO QHS PRN for sleep Allergies Coded Allergies: No Known Allergies (Unverified , 01/17/19) Dorothy Khan MD Jan 16, 2020 13:55
[2020-01-16 14:00] VITALS: BP 113/71
== END 2020-01-16 16:20 | DRG 917 ==
LOC: M ED 20:25 → EDBD 20:25 → M ED INP 01-12 01:26 → ENRESERV 01-12 07:49 → M PCU 01-12 09:01 → M MS5PR 01-14 14:55
PROVIDERS: ADMIT Internal Medicine; ATTEND Internal Medicine
DX: T43.012A Poisoning by tricyclic antidepressants, intentional self-harm, initial encounter (principal); G92 Toxic encephalopathy; F31.9 Bipolar disorder, unspecified; F41.9 Anxiety disorder, unspecified; G47.00 Insomnia, unspecified; R11.0 Nausea; K58.9 Irritable bowel syndrome, unspecified; Z81.8 Family history of other mental and behavioral disorders; Z65.0 Conviction in civil and criminal proceedings without imprisonment; Z79.899 Other long term (current) drug therapy

== ENCOUNTER 2020-01-16 14:01 | Inpatient (IN) | payer OTHER ==
[~2020-01-16] VITALS: Ht 165.1 cm; Wt 80.4 kg
[~2020-01-16 14:01] MED LIST changes: +ACET1TAB55 PO; +AMBI5TAB PO; +ATOR1TAB21 PO; +CLON-412 PO; +DICY1CAP8 PO; +FLUO40CA PO; +PATIENT COMMENT; +PROAAER10 INH; +QUET200T2 PO; +QUET400T PO; +REME15TA PO; +REME30TA PO
[2020-01-16] MEDS ORDERED: MAALOX 30 ML SUSP *UDC PO PRN (14:15)
[2020-01-16] MEDS ORDERED: zolPIDEM TARTRATE 5 MG TAB PO PRN (14:15)
[2020-01-16] MEDS ORDERED: MOM 30ML SUSPENSION UDC PO PRN (14:15)
[2020-01-16] MEDS ORDERED: ACETAMINOPHEN TAB 650MG DOSE (2X325MG) PO PRN (14:15)
[2020-01-16 17:25] VITALS: BP 130/75
[2020-01-16] MEDS: DICYCLOMINE 10 MG CAP PO PRN (20:13)
[2020-01-16] MEDS: QUEtiapine FUMARATE 200 MG TAB PO SCH (20:13)
[2020-01-16] MEDS: PROMETHAZINE 25 MG TAB PO PRN (20:13)
[2020-01-16] MEDS: MIRTAZAPINE 15 MG TAB PO SCH (20:13)
[2020-01-17 06:37] VITALS: BP 138/63
[2020-01-17] MEDS: DICYCLOMINE 10 MG CAP PO PRN ×3 (08:11→20:37)
[2020-01-17] MEDS: PROMETHAZINE 25 MG TAB PO PRN ×3 (08:11→20:37)
[2020-01-17] MEDS: clonazePAM 0.5 MG TAB PO PRN (13:20)
--- NOTE | 2020-01-17 14:19 | HPEPDOC ---
General Date of Admission Jan 16, 2020 at 16:25 Date of Service: Jan 17, 2020 Chief Complaint The patient is a 39-year-old female admitted with a reason for visit of Unspecified Depressive Disorder. History of Present Illness 39 y/o F with PMH of depression and anxiety admitted for polysubstance overdose, suicidal attempt metabolic encephalopathy initially to medicine then discharged to [facility] . I am seeing the patient for medical history and physical. She complains of abdominal cramps which she says are chronic form her IBS. Says be ntyl helps its about 4/10 when the crampy pain comes. She also has chronic constipation does not want any meds for it. Also complains of acid reflux. Home Medications Scheduled Atorvastatin Calcium (Atorvastatin Calcium) 20 Mg Tablet, 20 MG PO QHS, (Reported) Mirtazapine (Remeron) 15 Mg Tablet, 15 MG PO QHS Quetiapine Fumarate (Quetiapine Fumarate) 200 Mg Tablet, 200 MG PO QHS Scheduled PRN Acetaminophen (Acetaminophen) 325 Mg Tablet, 650 MG PO Q8HP PRN for PAIN / FEVER Albuterol Sulfate (Proair Hfa) 8.5 Gm Hfa.aer.ad, 2 PUFF INH Q4H PRN for SHORTNESS OF BREATH, (Reported) Dicyclomine HCl (Dicyclomine HCl) 10 Mg Capsule, 10 MG PO QIDP PRN for CRAMPS Zolpidem Tartrate (Ambien) 5 Mg Tablet, 5 MG PO QHS PRN for sleep Allergies Coded Allergies: No Known Allergies (Unverified , 01/17/19) Past Medical History Medical History Depression anxiety HLD IBS chronic constipation GERD/ Gastritis Surgical History Hysterectomy Family History Mother adapted so no history from maternal side Father Healthy Brother and sisters healthy. Social History * Smoker: current smoker Alcohol: rarely Drugs: denies A-FIB/CHADSVASC A-FIB History Current/History of A-Fib/PAF?: No Review of Systems Constitutional: Denies: Chills, Fever, Night Sweats Eyes: Denies: Pain, Vision change ENT: Denies: Head Aches, Ear Pain, Dysphagia Skin: Denies: Rash, Lesions, Breakdown Pulmonary: Denies: Dyspnea, Cough Cardiovascular: Denies: Chest Pain, Palpitations, Orthopnea, Paroxysmal Noc. Dyspnea, Lt Headedness Gastrointestinal: Reports: Nausea, Constipation; Denies: Vomiting, Abdominal Pain, Diarrhea Genitourinary: Denies: Dysuria, Frequency, Incontinence, Retention Hematologic: Denies: Bruising, Bleeding Excessively Musculoskeletal: Denies: Neck Pain, Back Pain, Joint Pain, Muscle Pain, Spasms Physical Examination General Exam: Positive: Alert, Cooperative, No Acute Distress Eye Exam: Positive: PERRLA, Conjunctiva & lids normal, EOMI; Negative: Sclera icteric ENT Exam: Positive: Atraumatic, Mucous membr. moist/pink, Pharynx Normal Neck Exam: Positive: Supple; Negative: JVD, thyromegaly Chest Exam: Positive: Clear to auscultation, Normal air movement Heart Exam: Positive: Rate Normal, Regular Rhythm, Normal S1, Normal S2; Negative: Murmurs, Rubs Abdomen Exam: Positive: Normal bowel sounds, Soft; Negative: Tenderness, Hepatospenomegaly Extremity Exam: Positive: Normal pulses; Negative: Clubbing, Cyanosis, Edema Vital Signs Vital Signs Date Time Temp Pulse Resp B/P (MAP) Pulse Ox O2 Delivery O2 Flow Rate FiO2 01/17/20 09:30 Room Air 01/17/20 06:37 97.7 81 16 138/63 (88) 01/16/20 17:25 97 Assessment/Plan 39 y/o F with PMH of depression and anxiety admitted for polysubstance overdose, suicidal attempt metabolic encephalopathy initially to medicine then discharged to [facility] . I am seeing the patient for medical history and physical. Depression/suicide attempt /Anxiety as per psychiatry IBS/ Constipation Nothing helps with constipation. Has bowel movements once a week to once in 10 d ays and has to do manual disimpaction. Bentyl helps with the chronic cramps. GERD/Gastritis says takes pepcid and milk helps. tired different PPIs do not help will start pepcid and continue Mylanta. HLD statin Plan / VTE VTE Prophylaxis Ordered?: No (freely ambulatory) WANDER RICHARD MD Jan 17, 2020 13:06
[2020-01-17 16:15] VITALS: BP 125/70
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
[2020-01-17] MEDS: QUEtiapine FUMARATE 200 MG TAB PO SCH (20:37)
[2020-01-17] MEDS: MIRTAZAPINE 15 MG TAB PO SCH (20:37)
[2020-01-17] MEDS: QUEtiapine FUMARATE 50 MG TAB PO PRN (20:37)
[2020-01-17] MEDS: FAMOTIDINE 20 MG TAB PO SCH (20:37)
[2020-01-18 06:37] VITALS: BP 115/56
[2020-01-18] MEDS: DICYCLOMINE 10 MG CAP PO PRN ×2 (08:42→20:19)
[2020-01-18] MEDS: PROMETHAZINE 25 MG TAB PO PRN ×2 (08:42→20:18)
[2020-01-18] MEDS ORDERED: QUET5TAB PO (10:16)
[2020-01-18] MEDS ORDERED: REME15TA PO (10:16)
[2020-01-18] MEDS ORDERED: CLON0.5T2 PO (10:16)
[2020-01-18] MEDS ORDERED: QUET200T2 PO ×2 (10:16→10:20)
[2020-01-18] MEDS ORDERED: AMBI5TAB PO (10:16)
--- NOTE | 2020-01-18 14:57 | MHIPNPDOC ---
[facility] [place] Note DATE OF SERVICE: 01/18/20 HISTORY: Patient is a 39 year old , Unemployed, Domiciled, Female who was brought to the ED after taking an overdose of her medication as a suicide attempt. She states, "I took a lot of medications, I was not sure if it was a suicide attempt or not.". HISTORY OF THE PRESENT ILLNESS: Patient is a 39 -year-old , Unemployed, Domiciled, female, who is directly admitted from the Medical Unit for stabilization s/p suicide attempt by overdose on her medications. Patient states that she took an overdose on the evening of Thursday01/11/20 taking her "Remeron, Klonopin, Seroquel, Prozac and any medications that would put me to sleep." She reports that on that morning, she had received notice by her corporate ethics officer was going to violate her again because she was caught shoplifting again. She is seen at [facility] but does not have a substance abuse/use issue. She states that she was being seen at [facility] because they were the only outpatient mental health provider that could see her the soonest. Patient moved here from [facility] 3 years ago and had never been outside of [place]. She currently lives with her , mother, her Great Aunt, and 2 nieces. Patient was arrested for shoplifting and is on probation, recently violated probation due to another incident of shoplifting. Fears that she will not have her medications if she is arrested and sent to senior living and that will make her decompensate again. Patient states that she felt she was overmedicated. States that she was prescribed the following for the past 3 months: Seroquel 800 mg Doxepin 100 mg Remeron 30 mg Prozac 40 mg Klonopin 1 mg TID Clonidine 0.1 mg TID (reports this was making her dizzy) VITAL SIGNS: See below. NEW TEST RESULTS: CURRENT MEDICATIONS: See below. MENTAL STATUS EXAMINATION: Patient is a 39 year old , Unemployed, Domiciled, Female who was brought to the ED after taking an overdose of her medication as a suicide attempt. She appears her stated age, is calm and cooperative in the interview. Hygiene and grooming is fair, eye contact is good, no psychomotor changes. Speech: Is normal rate, tone and volume Language skills are intact Thought processes including: linear and goal oriented Thought content: denies depression, suicidal/homicidal ideation, planning or intent. He is not anxious, denies abnormal psychotic symptoms Abstract reasoning, and computation: Fair Description of associations: None notes, patient denies Description of abnormal or psychotic thoughts: None notes, patient denies Judgment: good Insight: fair/good Orientation: alert and oriented to persona, place, time and situation Recent and remote memory: intact Attention span and concentration: fair Language: expansive Fund of knowledge: good Mood: " anxious to go home Affect: constricted DIAGNOSES: Bipolar I Disorder, Recurrent, Depressed Anxiety Disorder ASSESSMENT: Patient seen today, endorses no suicidal ideation. Was in communication with her , who states that she will have to turn herself in within a week and she was be going to senior living. Wants to speak regulatory scientist. She is fearful about have to go to senior living but I do believe that she has good supports. 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 wants and substituting some of these behaviors with family-oriented things. She denies continued depression, is happy with the current regiment, although I discussed with her that she may need to change or increase Seroquel if she has continued mood dysregulation. MANAGEMENT PLAN: Discharge tomorrow. Medications have been electronically prescribed today. TIME SPENT: 50 minutes. Vital Signs Vital Signs Date Time Temp Pulse Resp B/P (MAP) Pulse Ox O2 Delivery O2 Flow Rate FiO2 01/18/20 06:37 98.0 88 16 115/56 (75) 01/17/20 09:30 Room Air 01/16/20 17:25 97 Current Medications Current Medications Medications (Trade) Dose Ordered Sig/Petr Route PRN Reason Start Time Stop Time Status Last Admin Dose Admin Acetaminophen (Tylenol Tab) 650 mg Q6HP PRN PO HEADACHE or DISCOMFORT 01/16/20 14:15 Al Hydrox/Mg Hydrox/Simethicone (Mylanta) 30 ml Q4HP PRN PO HEARTBURN/INDIGESTION 01/16/20 14:15 Clonazepam (KlonoPIN) 0.5 mg BIDP PRN PO Anxiety 01/17/20 11:00 01/17/20 13:20 Dicyclomine HCl (Bentyl) 10 mg QIDP PRN PO CRAMPS 01/16/20 18:15 01/18/20 08:42 Famotidine (Pepcid) 40 mg QHS PO 01/17/20 21:00 01/17/20 20:37 Home Med (Med Rec Complete!) ASDIRECTED XX 01/16/20 16:30 01/16/20 16:33 DC Magnesium Hydroxide (Milk Of Magnesia) 30 ml DAILYPRN PRN PO CONSTIPATION 01/16/20 14:15 Mirtazapine (Remeron) 15 mg QHS PO 01/16/20 21:00 01/17/20 20:37 Promethazine HCl (Phenergan) 25 mg QIDP PRN PO NAUSEA OR VOMITING 01/16/20 18:15 01/18/20 08:42 Quetiapine Fumarate (SEROquel) 50 mg BIDP PRN PO Agitation 01/17/20 11:30 01/17/20 20:37 Quetiapine Fumarate (SEROquel) 200 mg QHS PO 01/16/20 21:00 01/17/20 20:37 Zolpidem Tartrate (Ambien) 5 mg QHSP PRN PO INSOMNIA 01/16/20 14:15 01/18/20 03:00 DC 01/16/20 20:13 Allergies Coded Allergies: No Known Allergies (Unverified , 01/17/19) AINSLEY MARTE NP Jan 18, 2020 10:02
[2020-01-18 16:26] VITALS: BP 127/72
[2020-01-18] MEDS: FAMOTIDINE 20 MG TAB PO SCH (20:13)
[2020-01-18] MEDS: QUEtiapine FUMARATE 200 MG TAB PO SCH (20:13)
[2020-01-18] MEDS: clonazePAM 0.5 MG TAB PO PRN (20:14)
[2020-01-18] MEDS: MIRTAZAPINE 15 MG TAB PO SCH (20:14)
[2020-01-18] MEDS: QUEtiapine FUMARATE 50 MG TAB PO PRN (20:20)
[2020-01-18] MEDS ORDERED: zolPIDEM TARTRATE 5 MG TAB PO PRN (21:15)
[2020-01-19 06:36] VITALS: BP 112/62
[2020-01-19] MEDS: DICYCLOMINE 10 MG CAP PO PRN (08:17)
[2020-01-19] MEDS: PROMETHAZINE 25 MG TAB PO PRN (08:18)
--- NOTE | 2020-01-19 12:35 | MHDSPDOC ---
[facility] Discharge Summary Discharge Summary DATE OF ADMISSION: Jan 16, 2020 at 16:25 DATE OF DISCHARGE: Jan 19, 2020 at 10:32 DISCHARGE DIAGNOSES: Bipolar I Disorder, Recurrent, Depressed Anxiety Disorder REASON FOR ADMISSION: Patient is a 39 year old , Unemployed, Domiciled, Female who was brought to the ED after taking an overdose of her medication as a suicide attempt. She states, "I took a lot of medications, I w as not sure if it was a suicide attempt or not.". She is directly admitted from the Medical Unit for stabilization s/p suicide attempt by overdose on her medications. Patient states that she took an overdose on the evening of Thursday01/11/20 taking her "Remeron, Klonopin, Seroquel, Prozac and any medications that would put me to sleep." She reports that on that morning, she had received notice by her chief investment officer was going to violate her again because she was caught shoplifting again. She is seen at [facility] but does not have a substance abuse/use issue. She states that she was being seen at [facility] because they were the only outpatient mental health provider that could see her the soonest. Patient moved here from [facility] 3 years ago and had never been outside of [place]. She currently lives with her , mother, her Great Aunt, and 2 nieces. Patient was arrested for shoplifting and is on probation, recently violated probation due to another incident of shoplifting. Fears that she will not have her medications if she is arrested and sent to halfway and that will make her decompensate again. Patient states that she felt she was overmedicated. States that she was prescribed the following for the past 3 months: Seroquel 800 mg Doxepin 100 mg Remeron 30 mg Prozac 40 mg Klonopin 1 mg TID Clonidine 0.1 mg TID (reports this was making her dizzy) CONSULTANTS INVOLVED: See Medical H + P by Medical Provider and Psychiatric Consult while patient was on medical unit. TREATMENT AND PROGRESS ON THE UNIT : TIME SPENT: 25 minutes. TREATMENT AND PROGRESS ON THE UNIT : Patient was admitted to the [facility] on a 9.39 legal status he was afforded the following treatment modalities: 1) Individual Therapy 2) Group Therapy 3) Medication Management 4) Milieu Therapy 5) Safe Environment HOSPITAL COURSE: Patient was not established on the above medications, instead patient was reduced to Seroquel 200 mg, Clonazepam 0.5 mg BID PRN for anxiety, Seroquel 50 mg PRN for agitation, Mirtazapine 15 mg QHS, Ambien 5 mg QHS. She had reported that on initial interview that she liked the reduction in the medications and that she felt that medication regimen was keeping her stable. I encouraged the patient to report any severe mood dysregulation and denied any while hospitalized. She stated that she had dysregulated mood due to poor sleep hygiene. She was discontinued off Ambien at one time and she had reported that this medication was the only one that allowed her to get good sleep. This was restarted on this admission and patient did well. She was calm and cooperative on the unit, often found reading a book in the milieu. She attended groups and was a model patient. DISCHARGE ASSESSMENT: At this time, patient is being discharged and reports no depression, suicidal/homicidal ideation, planning or intent. She reports moderate anxiety but stated that it is because she is in the hospital. Patient violated probation and there is a warrant for her arrest. Her Hide Sorter is aware that she is admitted and being discharged today. She appeared to have good insight and judgment reporting that she is taking herself to the Police [place] after she makes arrangements at home. Her states that she has a week to turn herself in. At this time, patient has a normal mental status exam and denies thoughts to self-harm. MENTAL STATUS EXAMINATION ON DISCHARGE: Patient is a 39 year old , Unemployed, Domiciled, Female who was brought to the ED after taking an overdose of her medication as a suicide attempt. She appears her stated age, is calm and cooperative in the interview. Hygiene and grooming is fair, eye contact is good, no psychomotor changes. Speech: Is normal rate, tone and volume Language skills are intact Thought processes including: linear and goal oriented Thought content: denies depression, suicidal/homicidal ideation, planning or intent. He is not anxious, denies abnormal psychotic symptoms Abstract reasoning, and computation: Fair Description of associations: None notes, patient denies Description of abnormal or psychotic thoughts: None notes, patient denies Judgment: good Insight: fair/good Orientation: alert and oriented to persona, place, time and situation Recent and remote memory: intact Attention span and concentration: fair Language: expansive Fund of knowledge: good Mood: " anxious to go home Affect: constricted MEDICATIONS ON DISCHARGE: See Medication Reconciliation PLAN/FOLLOWUP ARRANGEMENTS: Patient closed her treatment at [facility] and will follow up with [facility] The amount of time spent in the coordination of care for this patient was approximately 20 minutes. Vital Signs/I&Os Vital Signs Date Time Temp Pulse Resp B/P (MAP) Pulse Ox O2 Delivery O2 Flow Rate FiO2 01/19/20 06:36 98.3 87 14 112/62 (79) 97 Room Air Medications Scheduled Mirtazapine (Remeron) 15 Mg Tablet, 15 MG PO QHS for Insomnia, #7 Quetiapine Fumarate (Quetiapine Fumarate) 200 Mg Tablet, 200 MG PO QHS for Mood Stabilization, #7 Scheduled PRN Clonazepam (Clonazepam) 0.5 Mg Tablet, 0.5 MG PO BIDP PRN for Anxiety, #14 Dicyclomine HCl (Dicyclomine HCl) 10 Mg Capsule, 10 MG PO QIDP PRN for CRAMPS for 5 Days, #20 Quetiapine Fumarate (Quetiapine Fumarate) 50 Mg Tablet, 50 MG PO BIDP PRN for Agitation, #14 Zolpidem Tartrate (Ambien) 5 Mg Tablet, 5 MG PO QHS PRN for Insomnia, #7 Allergies Coded Allergies: No Known Allergies (Unverified , 01/17/19) AINSLEY MARTE NP Jan 19, 2020 12:19
== END 2020-01-19 10:32 | disposition home or self-care (01) | DRG 885 ==
LOC: M PSY 16:25
PROVIDERS: ADMIT Psychiatry & Neurology Psychiatry; ATTEND Psychiatry & Neurology Psychiatry
DX: F31.9 Bipolar disorder, unspecified (principal); F41.9 Anxiety disorder, unspecified; K58.1 Irritable bowel syndrome with constipation; K21.9 Gastro-esophageal reflux disease without esophagitis; E78.5 Hyperlipidemia, unspecified; K29.70 Gastritis, unspecified, without bleeding; Z81.3 Family history of other psychoactive substance abuse and dependence; Z91.5 Personal history of self-harm; Z65.0 Conviction in civil and criminal proceedings without imprisonment; Z79.899 Other long term (current) drug therapy

== ENCOUNTER 2020-04-23 19:38 | Emergency (ER) | payer OTHER ==
[~2020-04-23] VITALS: Ht 165.1 cm; Wt 85.6 kg
[~2020-04-23 19:38] MED LIST changes: -AMOX500C; -CIPR-249 PO; -GABA600T4; -ZOFR4TAB16 PO
[2020-04-23] MEDS ORDERED: AMOX500C (19:47)
[2020-04-23] MEDS ORDERED: GABA600T4 (19:47)
--- OUTSIDE RECORDS SUMMARY | 2020-04-23 19:49 | CCD | Continuity of Care Document ---
Author Author Maggy MARSHALL M.D. Organization Unknown Address [address] [place] [address] Phone [phone] Problems Description No Information Available Social History Type Date Description Comments Sex Unknown Allergies, Adverse Reactions, Alerts Description No Known Drug Allergies Medications Description No Active Medications Immunizations Description No Information Available Vital Signs Date Vital Result Comment 01/26/2020 9:19am BP Systolic 124 mmHg BP Diastolic 87 mmHg Heart Rate 102 /min Respiratory Rate 18 /min Weight 180.00 lb 05/10/2019 8:54am BP Systolic 102 mmHg BP Diastolic 66 mmHg Heart Rate 89 /min Respiratory Rate 18 /min Body Temperature 97.4 F Weight 145.00 lb Results Description No Information Available Procedures Description No Information Available Medical Devices Description No Information Available Encounters Description No Information Available Assessments Description No Information Available Plan of Treatment No Information Available Functional Status Description No Information Available Mental Status Description No Information Available Referrals Description No Information Available
--- OUTSIDE RECORDS SUMMARY | 2020-04-23 19:49 | CCD ---
Author Organization Unknown Address [address] [place] [address] Phone [phone] Care Team Providers Care Project Financial Analyst Name Role Phone Rahel Gleason Unavailable Unavailable Allergies Code Code System Name Reaction Severity Status Onset NKDA Medications Name Status Start Date Stop Date acetaminophen 300 mg-codeine 30 mg tablet Completed 02/23/2020 acetaminophen 325 mg tablet TK 2 TS PO Q 8 H PRN FOR PAIN/FEVER Completed 05/2019 albuterol sulfate HFA 90 mcg/actuation aerosol inhaler Completed 02/23/2020 amoxicillin 875 mg-potassium clavulanate 125 mg tablet Completed 02/23/2020 atorvastatin 20 mg tablet TAKE 1 TABLET BY MOUTH DAILY Completed 02/23/2020 azithromycin 250 mg tablet Completed 02/22 benzonatate 200 mg capsule Completed 02/22 cephalexin 500 mg capsule Completed 2019 clindamycin HCl 300 mg capsule Completed 1 04/25/2019 clonazepam 0.5 mg disintegrating tablet Completed 02/23/2020 clonazepam 0.5 mg tablet Active Not gaston ilable clonazepam 1 mg tablet Completed 0 clonidine HCl 0.1 mg tablet Completed 05/2019 cyclobenzaprine 10 mg tablet Completed 05/2019 diclofenac potassium 50 mg tablet Completed 03/02/2020 dicyclomine 10 mg capsule TAKE 1 CAPSULE BY MOUTH THREE TIMES DAILY Active Not available dicyclomine 20 mg tablet Completed 020 doxepin 100 mg capsule Completed 0 doxepin 25 mg capsule Completed 02/23/2020 doxepin 50 mg capsule Completed 02/23/2020 Dramamine 50 mg chewable tablet Chew 1 tablet every 6 hours by oral route. Completed 03/13/2020 fluoxetine 20 mg capsule Completed 020 fluoxetine 40 mg capsule Completed 020 gabapentin 300 mg capsule Completed 2019 gabapentin 600 mg tablet Take one tablet by mouth three times daily Completed 03/13/2020 hydrocodone 5 mg-acetaminophen 325 mg tablet Completed 02/23/2020 hydroxyzine HCl 25 mg tablet TK 1 T PO ONCE DAILY Completed 03/13/2020 ibuprofen 800 mg tablet Completed 03/02/20 20 ketorolac 10 mg tablet Completed 0 lidocaine 5 % topical patch Completed 02/21 lithium carbonate ER 450 mg tablet,extended release Completed 02/23/2020 methocarbamol 750 mg tablet Completed 05/2019 metoclopramide 5 mg tablet Completed 02/22 mirtazapine 15 mg tablet TAKE 1 TABLET BY MOUTH EVERY NIGHT AT BEDTIME Active Not available mirtazapine 30 mg tablet Completed 020 mirtazapine 7.5 mg tablet Completed 2019 naproxen 500 mg tablet Completed 0 penicillin V potassium 500 mg tablet Completed 02/23/2020 phenazopyridine 200 mg tablet Completed prednisone 20 mg tablet TK 2 TS PO QD FOR 5 DAYS Completed 03/02/2020 quetiapine 200 mg tablet TAKE 1 TABLET BY MOUTH AT BEDTIME Active Not a vailable quetiapine 400 mg tablet Completed quetiapine 50 mg tablet TAKE 1 TABLET BY MOUTH TWICE DAILY NEEDED Active Not available sulfamethoxazole 800 mg-trimethoprim 160 mg tablet Completed 02/23/2020 sumatriptan 50 mg tablet TAKE 1 TABLET BY MOUTH AT ONSET OF MIGRAINE. MAY REPEAT IN 2 HOURS IF PERSISTENT. MAXIMUM DAILY DOSE IS 2 Active Not available zolpidem 5 mg tablet Active Not availab le Problems Name Status Onset Date Source Nicotine Dependence Active 09/13/2019 History Backache Active 09/13/2019 History Pain of Right Shoulder Joint Active 09/13/2019 His tory Clinical Finding Unknown 09/13/2019 History Emotional State Finding Unknown 09/13/2019 History Vitamin D Deficiency Active 09/21/2019 History Hyperlipidemia Active 09/21/2019 History Patient Asked to Attend Unknown 09/21/2019 History Bipolar Disorder Active 03/02/2020 Depressive Disorder Active 03/02/2020 Procedures Date Name Performed by Partial Hysterectomy Information not gaston ilable Results Lab Results None recorded. Past Encounters 03/13/2020 Migraine; Bipolar Disorder Torri Allison PA-C: [address] [place] [phone], Ph. 03/02/2020 Migraine with Aura; Bipolar Disorder; Generalized Anxiety Disorder; Insomnia Torri Allison PA-C: [address] [place] [phone], Ph. 02/23/2020 Pruritic Rash; Constipation; Migraine Torri Allison PA-C: [address] [place] [phone], Ph. Social History Tobacco Smoking Status Light Tobacco Smoker (03/26 PPD) Vaccine List None recorded. Plan of Care Reminders Provider Appointments None recorded. Lab None recorded. Referral None recorded. Procedures None recorded. Surgeries None recorded. Imaging None recorded. Vitals 03/13/2020 09:00AM TELEHEALTH 20 Height 65 in 03/02/2020 11:20AM TELEHEALTH 20 Height 65 in 02/23/2020 10:40AM ESTABLISHED [id number] Height Weight BMI Blood Pressure 65 in 178 lbs 8 oz 29.7 kg/m2 115/79 mm[Hg] 09/21/2019 Height Weight Blood Pressure 65 in 171 lbs 2.08 oz 106/70 mm[Hg] 09/13/2019 Height Weight Blood Pressure 65 in 174 lbs 6.08 oz 107/74 mm[Hg]
--- OUTSIDE RECORDS SUMMARY | 2020-04-23 19:49 | CCD | Continuity of Care Document ---
Author Author Maggy LEUNG M.D. Organization Unknown Address [address] [place] [address] Phone [phone] Problems Description No Information Available Social History Type Date Description Comments Sex Unknown Allergies, Adverse Reactions, Alerts Description No Known Drug Allergies Medications Active Medications SIG Qnty Indications Ordering Provide r Date Clonidine HCL 0.1mg Tablets 1 by mouth tid 90tabs Roberto Leung M.D. 01/31/2020 Doxepin HCL 100mg Capsules Take 1 Capsule PO QHS 30Roberto Almanzar M.D. 01/31/2020 Fluoxetine HCL 40mg Capsules 1 by mouth every day 30Roberto Almanzar M.D. 01/31/2020 Mirtazapine 15mg Tablets 1 tab by mouth every night 30tabs Roberto Leung M.D. 01/26/2020 Quetiapine Fumarate 200mg Tablets 1 tab by mouth every day at bedtime 30tabs Roberto Leung M.D. 1 03/27/2019 Quetiapine Fumarate 50mg Tablets 1 tab by mouth twice a day 60tabs Roberto Leung M.D. 01/26/2020 Immunizations Description No Information Available Vital Signs [...]
--- OUTSIDE RECORDS SUMMARY | 2020-04-23 19:49 | CCD ---
Author Organization Unknown Address [address] [place] [address] Phone [phone] Care Team Providers Care Director Industrial Nursing Name Role Phone Rahel Gleason Unavailable Unavailable Allergies None recorded. Medications Name Status Start Date Stop Date [...] Not gaston ilable clonazepam 1 mg tablet Active Not avail able clonidine HCl 0.1 mg tablet Completed 05/2019 cyclobenzaprine 10 mg tablet Completed 05/2019 diclofenac potassium 50 mg tablet Take 1 tablet twice a day by oral route. Active Not available dicyclomine 10 mg capsule Take 1 capsule 3 times a day by oral route. Active Not available dicyclomine 20 mg tablet Active Not gaston ilable doxepin 100 mg capsule Completed 0 doxepin 25 mg capsule Completed 02/23/2020 doxepin 50 mg capsule Completed 02/23/2020 fluoxetine 20 mg capsule Completed fluoxetine 40 mg capsule Completed 020 gabapentin 300 mg capsule Completed 2019 gabapentin 600 mg tablet Take one tablet by mouth three times daily Active Not available hydrocodone 5 mg-acetaminophen 325 mg tablet Completed 02/23/2020 hydroxyzine HCl 25 mg tablet 1 tablet once daily Active Not available ibuprofen 800 mg tablet Active Not avai lable ketorolac 10 mg tablet Completed 0 lidocaine 5 % topical patch Active Not available lithium carbonate ER 450 mg tablet,extended release Completed 02/23/2020 methocarbamol 750 mg tablet Completed 05/2019 metoclopramide 5 mg tablet Completed 02/22 mirtazapine 15 mg tablet Active Not gaston ilable mirtazapine 30 mg tablet Completed mirtazapine 7.5 mg tablet Completed 2019 naproxen 500 mg tablet Completed 0 penicillin V potassium 500 mg tablet Completed 02/23/2020 phenazopyridine 200 mg tablet Completed prednisone 20 mg tablet Active Not avai lable quetiapine 200 mg tablet Active Not gaston ilable quetiapine 400 mg tablet Completed quetiapine 50 mg tablet Active Not avai lable sulfamethoxazole 800 mg-trimethoprim 160 mg tablet Completed 02/23/2020 zolpidem 5 mg tablet Active Not availab le Problems Name Status Onset Date Source Nicotine Dependence Active 09/13/2019 History Backache Active 09/13/2019 History Pain of Right Shoulder Joint Active 09/13/2019 His tory Clinical Finding Active 09/13/2019 History Emotional State Finding Active 09/13/2019 History Vitamin D Deficiency Active 09/21/2019 History Hyperlipidemia Active 09/21/2019 History Patient Asked to Attend Active 09/21/2019 History Procedures Notes: Hysterectomy (Partial) Results Lab Results None recorded. Past Encounters 02/23/2020 Pruritic Rash; Constipation; Migraine Torri Allison PA-C: [address] [place] [phone], Ph. Social History Tobacco Smoking Status Light Tobacco Smoker (03/26 PPD) Vaccine List None recorded. Plan of Care Reminders Provider Appointments None recorded. Lab None recorded. Referral None recorded. Procedures None recorded. Surgeries None recorded. Imaging None recorded. Vitals 02/23/2020 10:40AM ESTABLISHED [id number] Height Weight BMI Blood Pressure 65 in 178 lbs 8 oz 29.7 kg/m2 115/79 mm[Hg] 09/21/2019 Height Weight Blood Pressure 65 in 171 lbs 2.08 oz 106/70 mm[Hg] 09/13/2019 Height Weight Blood Pressure 65 in 174 lbs 6.08 oz 107/74 mm[Hg]
--- OUTSIDE RECORDS SUMMARY | 2020-04-23 19:49 | CCD ---
Author Author Maggy Damon Organization Unknown Address [address] [place] [address] Phone Unavailable Care Team Providers Care Contract Administration Specialist Name Role Phone Tiera Damon PCP Allergies, Adverse Reactions, Alerts No Data in Section Problem List Concept Problem Description Status Start Date Created Date Resolv ed Date Snomed Code F31.13 Bipolar I Disorder, Current or most recent episo de manic, Severe Active 01/26/2020 Medications No Data in Section Social History Social History Element Description Concept Effective Date Smoking Status Unknown if ever smoked [id number] Immunizations No Data in Section Vital Signs No Data in Section Procedures Date Concept Id Description Targeted Site Concept Targeted Site Concept Type 01/25/2020 H2011 Crisis Intervention - Brief CPT Patient has no history of implantable de vices Encounters Encounter Start Date End Date Encounter Type Description Diagnosis Di agnosis Desc Location Author First Name Author Last Name Npid Taxonomy Cod e Taxonomy Desc Phone Number Location Addr1 Location Addr2 Location [facility] Location Sta te Location Zip [id number] 01/25/2020 01/25/2020 H2011 Crisis Intervention - Brief F31.13 Bipolar disord, crnt epsd manic w/o psych features, severe [facility] Nelson Mott [phone] [id number] Sales Operations Specialist [phone] [address] [place] [address] Plan of Treatment No Data in Section Lab Results No Data in Section Instructions No Data in Section Insurance Providers Insurance Id Policy Effective Date Policy Thru Date Company N jesus manuel [id number] 2019 [facility]
--- OUTSIDE RECORDS SUMMARY | 2020-04-23 19:49 | CCD ---
Author Organization Unknown Address [address] [place] [address] Phone [phone] Care Team Providers Care Drop Hammer Setter Up Name Role Phone Rahel Gelason Unavailable Unavailable Allergies Code Code System Name [...] tablet Completed 02/23/2020 clonazepam 0.5 mg tablet TAKE 1 TABLET BY MOUTH TWICE DAILY NEEDED. MAXIMUM DAILY DOSE IS 2 TABLETS Active Not available clonazepam 1 mg tablet Completed 0 clonidine [...] tablet every 6 hours by oral route. Active Not available fluoxetine 20 mg capsule Completed fluoxetine 40 mg capsule Completed 020 gabapentin 300 mg capsule Completed 2019 gabapentin 600 mg tablet Take one tablet by mouth three times daily Active Not available hydrocodone 5 mg-acetaminophen 325 mg tablet Completed 02/23/2020 hydroxyzine HCl 25 mg tablet TK 1 T PO ONCE DAILY Active Not available ibuprofen 800 mg tablet Completed 03/02/20 20 ketorolac 10 mg tablet Completed 0 lidocaine 5 % topical patch Active Not available lithium carbonate ER 450 mg tablet,extended release Completed 02/23/2020 methocarbamol 750 mg tablet Completed 05/2019 metoclopramide 5 mg tablet Completed 02/22 mirtazapine 15 mg tablet TAKE 1 TABLET BY MOUTH EVERY NIGHT AT BEDTIME Active Not available mirtazapine 30 mg tablet Completed mirtazapine 7.5 [...] Active Not available zolpidem 5 mg tablet TAKE 1 TABLET BY MOUTH AT BEDTIME. MAXIMUM DAILY DOSE IS 1 TABLET Active Not available Problems Name Status Onset Date Source Nicotine Dependence Active 09/13/2019 History Backache Active 09/13/2019 History Pain of Right Shoulder Joint Active 09/13/2019 His tory Clinical Finding Unknown 09/13/2019 History Emotional State Finding Unknown 09/13/2019 History Vitamin D Deficiency Active 09/21/2019 History Hyperlipidemia Active 09/21/2019 History Patient Asked to Attend Unknown 09/21/2019 History Bipolar Disorder Active 03/02/2020 Depressive Disorder Active 03/02/2020 Procedures Notes: Hysterectomy (Partial) Results Lab Results None recorded. Past Encounters 03/02/2020 Migraine with Aura; Bipolar Disorder; Generalized Anxiety Disorder; Insomnia Torri Allison PA-C: [address] [place] [phone], Ph. 02/23/2020 Pruritic Rash; Constipation; Migraine Torri Allison PA-C: [address] [place] [phone], Ph. Social History Tobacco Smoking Status Light Tobacco Smoker (03/26 PPD) Vaccine List None recorded. Plan of Care Reminders Provider Appointments None recorded. Lab None recorded. Referral None recorded. Procedures None recorded. Surgeries None recorded. Imaging None recorded. Vitals 03/02/2020 11:20AM TELEHEALTH 20 Height 65 in 02/23/2020 10:40AM ESTABLISHED [id number] Height Weight BMI Blood Pressure 65 in 178 lbs 8 oz 29.7 kg/m2 115/79 mm[Hg] 09/21/2019 Height Weight Blood Pressure 65 in 171 lbs 2.08 oz 106/70 mm[Hg] 09/13/2019 Height Weight Blood Pressure 65 in 174 lbs 6.08 oz 107/74 mm[Hg]
--- OUTSIDE RECORDS SUMMARY | 2020-04-23 19:49 | CCD | Continuity of Care Document ---
Author Author Maggy LEUNG M.D. Organization Unknown Address [address] [place] [address] Phone [phone] Problems Description No Information Available Social History Type Date Description Comments Sex Unknown Allergies, Adverse Reactions, Alerts Description No Known Drug Allergies Medications Active Medications SIG Qnty Indications Ordering Provide r Date Macrobid 100mg Capsules 1 tab by mouth twice a day 14caps Roberto Leung M.D. 02/07/2020 Clonidine HCL 0.1mg Tablets 1 by mouth tid 90tabs Roberto Leung M.D. 01/31/2020 Mirtazapine 15mg Tablets 1 tab by mouth every night 30tabs Roberto Leung M.D. 01/26/2020 Quetiapine Fumarate 200mg Tablets 1 tab by mouth every day at bedtime 30taRoberto Dobbins M.D. 1 03/27/2019 Quetiapine Fumarate 50mg Tablets 1 tab by mouth twice a day 60tabs Roberto Leung M.D. 01/26/2020 History Medications Doxepin HCL 100mg Capsules Take 1 Capsule PO QHS 30capRoberto Powell M.D. 01/31/2020 - 02/06/2020 Fluoxetine HCL 40mg Capsules 1 by mouth every day 30Roberto Almanzar M.D. 01/31/2020 - 02/06/2020 Immunizations Description No Information Available Vital Signs [...]
--- OUTSIDE RECORDS SUMMARY | 2020-04-23 19:50 | CCD ---
Author Author [facility] Organization [facility] Address Unknown Phone Unavailable Care Team Providers Care Stretching Machine Tender Frame Name Role Phone Corina Vanegas MD Unavailable Unavailable Guilherme, Corina Ruiz MD Unavailable Unavailable Guilherme, Corina Ruiz MD Unavailable Unavailable Guilherme, Corina Ruiz MD Unavailable Unavailable Guilherme, Corina Ruiz MD Unavailable Unavailable Guilherme, Corina Ruiz MD Unavailable Unavailable Guilherme, Corina Ruiz MD Unavailable Unavailable Guilherme, Corina Ruiz MD Unavailable Unavailable Guilherme, Corina Ruiz MD Unavailable Unavailable Guilherme, Corina Ruiz MD Unavailable Unavailable Guilherme, Corina Ruiz MD Unavailable Unavailable Guilherme, Corina Ruiz MD Unavailable Unavailable Guilherme, Corina Ruiz MD Unavailable Unavailable Guilherme, Corina Ruiz MD Unavailable Unavailable Guilherme, Corina Ruiz MD Unavailable Unavailable Guilherme, Corina Ruiz MD Unavailable Unavailable Guilherme, Corina Ruiz MD Unavailable Unavailable Guilherme, Corina Ruiz MD Unavailable Unavailable Guilherme, Corina Ruiz MD Unavailable Unavailable Guilherme, Corina Ruiz MD Unavailable Unavailable Guilherme, Corina Ruiz MD Unavailable Unavailable Guilherme, Corina Ruiz MD Unavailable Unavailable Guilherme, Corina Ruiz MD Unavailable Unavailable Guilherme, Corina Ruiz MD Unavailable Unavailable Guilherme, Corina Ruiz MD Unavailable Unavailable Guilherme, Corina Ruiz MD Unavailable Unavailable Guilherme, Corina Ruiz MD Unavailable Unavailable Guilherme, Corina Ruiz MD Unavailable Unavailable Guilherme, Corina Ruiz MD Unavailable Unavailable Guilherme, Corina Ruiz MD Unavailable Unavailable Guilherme, Corina Ruiz MD Unavailable Unavailable Guilherme, Corina Ruiz MD Unavailable Unavailable Guilherme, Corina Ruiz MD Unavailable Unavailable Guilherme, Corina Ruiz MD Unavailable Unavailable Guilherme, Corina Ruiz MD Unavailable Unavailable Guilherme, Corina Ruiz MD Unavailable Unavailable Guilherme, Corina Ruiz MD Unavailable Unavailable Guilherme, Corina Ruiz MD Unavailable Unavailable Guilherme, Corina Ruiz MD Unavailable Unavailable Guilherme, Corina Ruiz MD Unavailable Unavailable Guilherme, Corina Ruiz MD Unavailable Unavailable Guilherme, Corina Ruiz MD Unavailable Unavailable Guilherme, Corina Ruiz MD Unavailable Unavailable Guilherme, Corina Ruiz MD Unavailable Unavailable Guilherme, Corina Ruiz MD Unavailable Unavailable Guilherme, Corina Ruiz MD Unavailable Unavailable Guilherme, Corina Ruiz MD Unavailable Unavailable Guilherme, Corina Ruiz MD Unavailable Unavailable Guilherme, Corina Ruiz MD Unavailable Unavailable Guilherme, Corina Ruiz MD Unavailable Unavailable Guilherme, Corina Ruiz MD Unavailable Unavailable Guilherme, Corina Ruiz MD Unavailable Unavailable Guilherme, Corina Ruiz MD Unavailable Unavailable Guilherme, Corina Ruiz MD Unavailable Unavailable Guilherme, Corina Ruiz MD Unavailable Unavailable Guilherme, Corina Ruiz MD Unavailable Unavailable Guilherme, Corina Ruiz MD Unavailable Unavailable Guilherme, Corina Ruiz MD Unavailable Unavailable Guilherme, Corina Ruiz MD Unavailable Unavailable Guilherme, Corina Ruiz MD Unavailable Unavailable Guilherme, Corina Ruiz MD Unavailable Unavailable Guilherme, Corina Ruiz MD Unavailable Unavailable Guilherme, Corina Ruiz MD Unavailable Unavailable Guilherme, Corina Ruiz MD Unavailable Unavailable Guilherme, Corina Ruiz MD Unavailable Unavailable Guilherme, Corina Ruiz MD Unavailable Unavailable Guilherme, Corina Ruiz MD Unavailable Unavailable Guilherme, Corina Ruiz MD Unavailable Unavailable Guilherme, Corina Ruiz MD Unavailable Unavailable Guilherme, Corina Ruiz MD Unavailable Unavailable Guilherme, Corina Ruiz MD Unavailable Unavailable Guilherme, Corina Ruiz MD Unavailable Unavailable Guilherme, Corina Ruiz MD Unavailable Unavailable Guilherme, Corina Ruiz MD Unavailable Unavailable Guilherme, Corina Ruiz MD Unavailable Unavailable Guilherme, Corina Ruiz MD Unavailable Unavailable Keisha King Unavailable [phone] DAINA MILLER Unavailable Unavailable Alvin Allison Unavailable Unavailable Scordo, M Torri PA Unavailable Unavailable Scordo, M Torri PA Unavailable Unavailable Scordo, M Torri PA Unavailable Unavailable Scordo, M Torri PA Unavailable Unavailable Scordo, M Torri PA Unavailable Unavailable Scordo, M Torri PA Unavailable Unavailable Scordo, M Torri PA Unavailable Unavailable Scordo, M Torri PA Unavailable Unavailable Scordo, M Torri PA Unavailable Unavailable Scordo, M Torri PA Unavailable Unavailable Scordo, M Torri PA Unavailable Unavailable Scordo, M Torri PA Unavailable Unavailable Scordo, M Torri PA Unavailable Unavailable Scordo, M Torri PA Unavailable Unavailable Scordo, M Torri PA Unavailable Unavailable Scordo, M Torri PA Unavailable Unavailable Scordo, M Torri PA Unavailable Unavailable Scordo, M Torri PA Unavailable Unavailable Scordo, M Torri PA Unavailable Unavailable Scordo, M Torri PA Unavailable Unavailable Scordo, M Torri PA Unavailable Unavailable Scordo, M Torri PA Unavailable Unavailable Scordo, M Torri PA Unavailable Unavailable Scordo, M Torri PA Unavailable Unavailable Scordo, M Torri PA Unavailable Unavailable Scordo, M Torri PA Unavailable Unavailable Scordo, M Torri PA Unavailable Unavailable Scordo, M Torri PA Unavailable Unavailable Scordo, M Torri PA Unavailable Unavailable Scordo, M Torri PA Unavailable Unavailable Scordo, M Torri PA Unavailable Unavailable Scordo, M Torri PA Unavailable Unavailable Scordo, M Torri PA Unavailable Unavailable Scordo, M Torri PA Unavailable Unavailable Scordo, M Torri PA Unavailable Unavailable Scordo, M Torri PA Unavailable Unavailable Scordo, M Torri PA Unavailable Unavailable Scordo, M Torri PA Unavailable Unavailable Scordo, M Torri PA Unavailable Unavailable Scordo, M Torri PA Unavailable Unavailable Scordo, M Torri PA Unavailable Unavailable PALMER, J JORDAN PA Unavailable Unavailable PALMER, J JORDAN PA Unavailable Unavailable PALMER, J JORDAN PA Unavailable Unavailable PALMER, J JORDAN PA Unavailable Unavailable PALMER, J JORDNA PA Unavailable Unavailable PALMER, J JORDAN PA Unavailable Unavailable PALMER, J JORDAN PA Unavailable Unavailable PALMER, J JORDAN PA Unavailable Unavailable PALMER, J JORDAN PA Unavailable Unavailable PALMER, J JORDAN PA Unavailable Unavailable PALMER, J JORDAN PA Unavailable Unavailable PALMER, J JORDAN PA Unavailable Unavailable PALMER, J JORDAN PA Unavailable Unavailable PALMER, J JORDAN PA Unavailable Unavailable PALMER, J JORDAN PA Unavailable Unavailable PALMER, J JORDAN PA Unavailable Unavailable PALMER, J JORDAN PA Unavailable Unavailable PALMER, J JORDAN PA Unavailable Unavailable PALMER, J JORDAN PA Unavailable Unavailable PALMER, J JORDAN PA Unavailable Unavailable PALMER, J JORDAN PA Unavailable Unavailable PALMER, J JORDAN PA Unavailable Unavailable PALMER, J JORDAN PA Unavailable Unavailable PALMER, J JORDAN PA Unavailable Unavailable PALMER, J JORDAN PA Unavailable Unavailable PALMER, J JORDAN PA Unavailable Unavailable PALMER, J JORDAN PA Unavailable Unavailable Shah, Joanne GENERAL ENGINEER Unavailable Unavailable Shah, Joanne GENERAL ENGINEER Unavailable Unavailable Shah, Joanne GENERAL ENGINEER Unavailable Unavailable Shah, Joanne GENERAL ENGINEER Unavailable Unavailable Shah, Joanne GENERAL ENGINEER Unavailable Unavailable Shah, Joanne GENERAL ENGINEER Unavailable Unavailable Shah, Joanne GENERAL ENGINEER Unavailable Unavailable Shah, Joanne GENERAL ENGINEER Unavailable Unavailable Shah, Joanne GENERAL ENGINEER Unavailable Unavailable Shah, Joanne GENERAL ENGINEER Unavailable Unavailable Shah, Joanne GENERAL ENGINEER Unavailable Unavailable Stone, Tiera Unavailable BILAL, AHMAD MD Unavailable Unavailable BILAL, AHMANaveed MD Unavailable Unavailable BILAL, AHMAD MD Unavailable Unavailable BILAL, AHMANaveed MD Unavailable Unavailable BILAL, AHMAD MD Unavailable Unavailable BILAL, AHMAD MD Unavailable Unavailable BILAL, AHMAD MD Unavailable Unavailable BILAL, AHMAD MD Unavailable Unavailable BILAL, AHMAD MD Unavailable Unavailable Victorino, Rahel FURRIER SHOP SUPERVISOR FURRIER SHOP SUPERVISOR Unavailable Unavailable Victorino, A Rahel FURRIER SHOP SUPERVISOR Unavailable Unavailable Victorino, A Rahel FURRIER SHOP SUPERVISOR Unavailable Unavailable Victorino, A Rahel FURRIER SHOP SUPERVISOR Unavailable Unavailable Victorino, A Rahel FURRIER SHOP SUPERVISOR Unavailable Unavailable Victorino, A Rahel FURRIER SHOP SUPERVISOR Unavailable Unavailable Victorino, A Rahel FURRIER SHOP SUPERVISOR Unavailable Unavailable Victorino, A Rahel FURRIER SHOP SUPERVISOR Unavailable Unavailable Victorino, A Rahel FURRIER SHOP SUPERVISOR Unavailable Unavailable Victorino, A Rahel FURRIER SHOP SUPERVISOR Unavailable Unavailable Victorino, A Rahel FURRIER SHOP SUPERVISOR Unavailable Unavailable Victorino, A Rahel FURRIER SHOP SUPERVISOR Unavailable Unavailable Victorino, A Rahel FURRIER SHOP SUPERVISOR Unavailable Unavailable Victorino, A Rahel FURRIER SHOP SUPERVISOR Unavailable Unavailable Victorino, A Rahel FURRIER SHOP SUPERVISOR Unavailable Unavailable Victorino, A Rahel FURRIER SHOP SUPERVISOR Unavailable Unavailable Victorino, A Rahel FURRIER SHOP SUPERVISOR Unavailable Unavailable Victorino, A Rahel FURRIER SHOP SUPERVISOR Unavailable Unavailable Victorino, A Rahel FURRIER SHOP SUPERVISOR Unavailable Unavailable Victorino, A Rahel FURRIER SHOP SUPERVISOR Unavailable Unavailable Victorino, A Rahel FURRIER SHOP SUPERVISOR Unavailable Unavailable Victorino, A Rahel FURRIER SHOP SUPERVISOR Unavailable Unavailable Victorino, A Rahel FURRIER SHOP SUPERVISOR Unavailable Unavailable Victorino, A Rahel FURRIER SHOP SUPERVISOR Unavailable Unavailable Victorino, A Rahel FURRIER SHOP SUPERVISOR Unavailable Unavailable Victorino, A Rahel FURRIER SHOP SUPERVISOR Unavailable Unavailable Victorino, A Rahel FURRIER SHOP SUPERVISOR Unavailable Unavailable Victorino, A Rahel FURRIER SHOP SUPERVISOR Unavailable Unavailable Victorino, A Rahel FURRIER SHOP SUPERVISOR Unavailable Unavailable LETTIERE, A ARA PA Unavailable Unavailable LETTIERE, A ARA PA Unavailable Unavailable LETTIERE, A ARA PA Unavailable Unavailable LETTIERE, A ARA PA Unavailable Unavailable LETTIERE, A ARA PA Unavailable Unavailable LETTIERE, A ARA PA Unavailable Unavailable LETTIERE, A ARA PA Unavailable Unavailable LETTIERE, A ARA PA Unavailable Unavailable LETTIERE, A ARA PA Unavailable Unavailable LETTIERE, A ARA PA Unavailable Unavailable LETTIERE, A ARA PA Unavailable Unavailable LETTIERE, A ARA PA Unavailable Unavailable LETTIERE, A ARA PA Unavailable Unavailable LETTIERE, A ARA PA Unavailable Unavailable LETTIERE, A ARA PA Unavailable Unavailable LETTIERE, A ARA PA Unavailable Unavailable LETTIERE, A ARA PA Unavailable Unavailable LETTIERE, A ARA PA Unavailable Unavailable LETTIERE, A ARA PA Unavailable Unavailable LETTIERE, A ARA PA Unavailable Unavailable LETTIERE, A ARA PA Unavailable Unavailable LETTIERE, A ARA PA Unavailable Unavailable LETTIERE, A ARA PA Unavailable Unavailable LETTIERE, A ARA PA Unavailable Unavailable LETTIERE, A ARA PA Unavailable Unavailable LETTIERE, A ARA PA Unavailable Unavailable LETTIERE, A ARA PA Unavailable Unavailable LETTIERE, A ARA PA Unavailable Unavailable LETTIERE, A ARA PA Unavailable Unavailable Re-disclosure Warning The records that you are about to access may contain information from federally-assisted alcohol or drug abuse programs. If such information is present, then the following federally mandated warning applies: This information has been disclosed to you from records protected by federal confidentiality rules (42 CFR part 2). The federal rules prohibit you from making any further disclosure of this information unless further disclosure is expressly permitted by the written consent of the person to whom it pertains or as otherwise permitted by 42 CFR part 2. A general authorization for the release of medical or other information is NOT sufficient for this purpose. The Federal rules restrict any use of the information to criminally investigate or prosecute any alcohol or drug abuse patient.The records that you are about to access may contain highly sensitive health information, the redisclosure of which is protected by Article 27-F of the [facility] Public Health law. If you continue you may have access to information: Regarding HIV / AIDS; Provided by facilities licensed or operated by the [facility] Office of Mental Health; or Provided by the [facility] Office for People With Developmental Disabilities. If such information is present, then the following [facility] mandated warning applies: This information has been disclosed to you from confidential records which are protected by state law. State law prohibits you from making any further disclosure of this information without the specific written consent of the person to whom it pertains, or as otherwise permitted by law. Any unauthorized further disclosure in violation of state law may result in a fine or skilled nursing sentence or both. A general authorization for the release of medical or other information is NOT sufficient authorization for further disc losure. Allergies and Adverse Reactions Type Description Substance Reaction Status Data Source(s ) Allergy to substance Allergy to substance Allergy to substance [facility] ([facility]) Family History Family Member Name Family Member Gender Family Member Status Date o f Status Description Data Source(s) Unknown Unknown Problem [facility] Unknown Unknown Problem [facility] Encounters Encounter Providers Location Date Indications Data Source(s ) Keisha King MD: [address] [place] [address], Ph. Attender: Keisha King [facility] Medical 04/23/2020 12:00:00 AM EST [facility] ([facility]) Torri Allison PA-C: [address] [place] [address], Ph. Attender: Torri ROSAS [facility] Medical 03/13/2020 12:00:00 AM EST [facility] ([facility]) Torri Allison PA-C: [address], [place] [address], Ph. Attender: Trori ROSAS [facility] Medical 03/13/2020 12:00:00 AM EST [facility] ([facility]) Torri Allison PA-C: [address], [place] [address], Ph. Attender: Torri ROSAS [facility] Medical 03/02/2020 12:00:00 AM EST [facility] ([facility]) Torri Allison PA-C: [address], [place] [address], Ph. Attender: Torri ROSAS [facility] Medical 03/02/2020 12:00:00 AM EST [facility] ([facility]) Torri Allison PA-C: [address], [place] [address], Ph. Attender: Torri ROSAS [facility] Medical 03/02/2020 12:00:00 AM EST [facility] ([facility]) Torri Allison PA-C: [address], [place] [address], Ph. Attender: Torri ROSAS [facility] Medical 02/23/2020 12:00:00 AM EST [facility] ([facility]) Torri Allison PA-C: [address], [place] [address], Ph. Attender: Torri ROSAS [facility] Medical 02/23/2020 12:00:00 AM EST [facility] ([facility]) Torri Allison PA-C: [address], [place] [address], Ph. Attender: Torri ROSAS [facility] Medical 02/23/2020 12:00:00 AM EST [facility] ([facility]) Torri Allison PA-C: [address] [place] [address], Ph. Attender: Torri ROSAS [facility] Medical 02/23/2020 12:00:00 AM EST [facility] ([facility]) Attender: Tiera Damon 01/26/2020 12:00:[address] [facility] ([facility]) Crisis Intervention - Brief Attender: Tiera Damon [facility] 01/25/2020 12:00:00 PM EST - 01/25/2020 12:00:00 PM EST [facility] ([facility]) Outpatient Attender: Raehl CLARK 12/21/2019 09:5 5:02 PM EDT [facility] Outpatient Attender: SUSANA CLARK 12/21/2019 10:25:01 A M EDT [facility] Outpatient Attender: Rahel CLARK 11/07/2019 08:1 3:01 AM EDT [facility] Outpatient Attender: Rahel CLARK 09/27/2019 04:2 7:01 PM EDT [facility] Outpatient Attender: SUSANA CLARK 09/21/2019 05:00:06 P M EDT [facility] Outpatient Attender: Rahel CLARK 09/21/2019 05:0 0:05 PM EDT [facility] Outpatient Attender: SUSANA CLARK 09/21/2019 05:00:02 P M EDT [facility] Outpatient Attender: SUSANA CLARK 09/20/2019 10:15:00 A M EDT [facility] Outpatient Attender: SUSANA CLARK 09/20/2019 10:14:00 A M EDT [facility] Outpatient Attender: SUSANA CLARK 09/20/2019 10:13:01 A M EDT [facility] Outpatient Attender: Rahel Gleason [facility] 09/18/2019 11:5 5:[address] [facility] Outpatient Attender: SUSANA Victorino SUSANA FP 09/18/2019 11:54:59 P M EDT [facility] Outpatient Attender: SUSANA Victorino [facility] 09/18/2019 02:30:02 P M EDT [facility] Outpatient Attender: SUSANA Victorino S[facility]NA FP 09/16/2019 09:25:00 A M EDT [facility] Outpatient Attender: SUSANA Victorino [facility] FP 09/15/2019 07:58:01 A M EDT [facility] Outpatient Attender: SUSANA MEZA FP 09/14/2019 08:37:00 A M EDT [facility] Outpatient Attender: SUSANA Victorino S[facility]NA FP 09/14/2019 08:36:00 A M EDT [facility] Outpatient Attender: SUSANA MEZA FP 09/14/2019 08:17:01 A M EDT [facility] Outpatient Attender: SUSANA Victorino FURRIER SHOP SUPERVISOR FP 09/13/2019 04:10:00 P M EDT [facility] Outpatient Attender: SUSANA MEZA FP 09/13/2019 02:26:01 P M EDT [facility] Outpatient Attender: SUSANA Victorino [facility] FP 09/10/2019 12:02:09 A M EDT [facility] Outpatient Attender: SUSANA Victorino SUSANA FP 09/09/2019 12:42:01 P M EDT [facility] Outpatient Attender: Joanne emmanuel 08/24/2019 11:30:00 AM EDT [facility] ([facility]) Outpatient Attender: ARA magdaleno 07/20/2019 01:45:00 PM EDT [facility] ([facility]) Nursing Home - Case Management Attender: Tiera Damon [facility] 05/23/2019 08:30:00 AM EST - 05/23/2019 08:30:00 AM EST [facility] ([facility]) Attender: Tiera Damon 05/23/2019 12:00:[address] [facility] ([facility]) Brief Individual Psychotherapy - 20 min Attender: Tiera Karon mata [facility] 05/11/2019 01:45:00 AM EST - 05/11/2019 01:45:00 AM EST [facility] ([facility]) Attender: Tiera Nelson 05/11/2019 12:00:[address] [facility] ([facility]) Emergency Attender: TAWNYA JEFFERSON MD [id number] 06:52:00 PM EST - 04/20/2019 09:01:00 PM EST [facility] Patient discharged. Outpatient Attender: DAINA MILLERConsultant: Sara vee MD 03/11/2019 11:01:00 AM EST - 03/11/2019 11:01:00 AM [facility] Outpatient Attender: JORDAN PALMER PAConsultant: Sara villeda MD 01/28/2019 03:34:00 PM EST - 01/28/2019 03:34:00 PM [facility] Medications Medication Brand Name Start Date Product Form Dose Route Admi nistrative Instructions Pharmacy Instructions Status Indications Reaction Description Data Source(s) NITROFURANTOIN, MACROCRYSTALS 25 MG / Ni trofurantoin, Monohydrate 75 MG Oral Capsule [Macrobid] Macrobid 02/07/2020 12:00:00 AM EST ORAL active [facility] ([facility]) Fluoxetine 40 MG Oral Capsule Fluoxetine HCL 01/31/2020 12:00:[address] ORAL completed [facility] ([facility]) Clonidine Hydrochloride 0.1 MG Oral Tablet Clonidine HCL 01/31/2020 12:00:00 AM EST ORAL active [facility] ([facility]) Doxepin Hydrochloride 100 MG Oral Capsule Doxepin HCL 01/31/2020 12:00:00 AM EST completed [facility] ([facility]) quetiapine 50 MG Oral Tablet Quetiapine Fumarate 01/26/2020 12:00:00 AM EST ORAL active [facility] ([facility]) quetiapine 200 MG Oral Tablet Quetiapine Fumarate 01/26/2020 12:00: 00 AM EST ORAL active [facility] ([facility]) Mirtazapine 15 MG Oral Tablet Mirtazapine 01/26/2020 12:00:00 AM EST ORAL active [facility] ([facility]) Dicyclomine Hydrochloride 20 MG Oral Tablet Dicyclomine HCL 08/24/2019 12:00:00 AM EDT ORAL active [facility] ([facility]) Cyclobenzaprine hydrochloride 10 MG Oral Tablet Cyclobenzapr ine HCL 08/24/2019 12:00:00 AM EDT ORAL active M [facility] ([facility]) Prednisone 20 MG Oral Tablet Prednisone 08/24/2019 12:00:00 AM EDT active [facility] ([facility]) Sulfamethoxazole 800 MG / Trimethoprim 160 MG Oral Tablet [B actrim] Bactrim DS 07/22/2019 12:00:00 AM EDT ORAL completed [facility] ([facility]) Phenazopyridine hydrochloride 200 MG Delayed Release O ral Tablet Phenazopyridine HCL 07/22/2019 12:00:00 AM EDT ORAL completed [facility] ([facility]) Fluoxetine 40 MG Oral Capsule fluoxetine 40 mg capsule fluox etine 40 mg capsule completed fluoxetine 40 MG Oral Capsule [facility]) quetiapine 400 MG Oral Tablet quetiapine 400 mg tablet queti apine 400 mg tablet completed quetiapine 400 MG Oral Tablet [facility]) Cephalexin 500 MG Oral Capsule cephalexin 500 mg capsu le cephalexin 500 mg capsule completed cephalexin 500 MG Oral Capsule NICOL ([facility]) Cyclobenzaprine hydrochloride 10 MG Oral Tablet cyclob enzaprine 10 mg tablet cyclobenzaprine 10 mg tablet completed cyclobenzaprine hydrochloride 10 MG Oral Tablet [facility] ([facility]) Clonazepam 1 MG Oral Tablet clonazepam 1 mg tablet clonazepam 1 mg ta blet completed clonazepam 1 MG Oral Tablet [facility] ([facility]) Doxepin Hydrochloride 25 MG Oral Capsule doxepin 25 mg capsule doxepin 25 mg capsule completed [facility]ide [facility] Clindamycin 300 MG Oral Capsule clindamycin HCl 300 mg capsule clindamycin HCl 300 mg capsule completed clindam ycin 300 MG Oral Capsule [facility] ([facility]) Acetaminophen 300 MG / Codeine Phosphate 30 MG Oral Tablet acetaminophen 300 mg- codeine 30 mg tablet acetaminophen 300 mg-codeine 30 mg tablet completed acetaminophen 300 MG / codeine p hosphate 30 MG Oral Tablet N[facility]OL ([facility]) Doxepin Hydrochloride 100 MG Oral Capsule doxepin 100 mg capsule doxepin 100 mg capsule completed doxepin hydroc hloride 100 MG Oral Capsule NICOL ([facility]) Phenazopyridine hydrochloride 200 MG Oral Tablet phena zopyridine 200 mg tablet phenazopyridine 200 mg tablet complete d phenazopyridine hydrochloride 200 MG Oral Tablet NICOL ([facility]) Acetaminophen 325 MG / Hydrocodone Kala trate 5 MG Oral Tablet hydrocodone 5 mg- acetaminophen 325 mg tablet hydrocodone 5 mg-acetaminophen 325 mg tablet completed acetaminophen 325 MG / hydrocodone bitartrate 5 MG Oral Tablet [facility] ([facility]) Ketorolac Tromethamine 10 MG Oral Tablet ketorolac 10 mg tablet ketorolac 10 mg tablet completed ketorolac trome thamine 10 MG Oral Tablet [facility] ([facility]) Mirtazapine 7.5 MG Oral Tablet mirtazapine 7.5 mg tabl et mirtazapine 7.5 mg tablet completed mirtazapine 7.5 MG Oral Tablet [facility] ([facility]) atorvastatin 20 MG Oral Tablet atorvasta tin 20 mg tablet TAKE 1 TABLET BY MOUTH DAILY atorvastatin 20 mg tablet TAKE 1 TABLET BY MOUTH DAILY completed atorvastatin 20 MG Oral Tablet A THENA ([facility]) Doxepin Hydrochloride 100 MG Oral Capsule doxepin 100 mg capsule doxepin 100 mg capsule completed doxepin hydroc hloride 100 MG Oral Capsule NICOL ([facility]) Ibuprofen 800 MG Oral Tablet ibuprofen 800 mg tablet ibuprofen 8 00 mg tablet completed ibuprofen 800 MG Oral Tablet NICOL ([facility]) Phenazopyridine hydrochloride 200 MG Oral Tablet phena zopyridine 200 mg tablet phenazopyridine 200 mg tablet complete d phenazopyridine hydrochloride 200 MG Oral Tablet NICOL ([facility]) Acetaminophen 325 MG Oral Tablet acetami nophen 325 mg tablet TK 2 TS PO Q 8 H PRN FOR PAIN/FEVER acetaminophen 325 mg tablet TK 2 TS PO Q 8 H PRN FOR PAIN/FEVER completed acetaminoph en 325 MG Oral Tablet NICOL ([facility]) Metoclopramide 5 MG Oral Tablet metoclopramide 5 mg ta blet metoclopramide 5 mg tablet completed metoclopramide 5 MG Oral Tablet NICOL ([facility]) Phenazopyridine hydrochloride 200 MG Oral Tablet phena zopyridine 200 mg tablet phenazopyridine 200 mg tablet complete d phenazopyridine hydrochloride 200 MG Oral Tablet NICOL ([facility]) gabapentin 300 MG Oral Capsule gabapentin 300 mg capsu le gabapentin 300 mg capsule completed gabapentin 300 MG Oral Capsule SUGAR TREE ([facility]) Doxepin Hydrochloride 50 MG Oral Capsule doxepin 50 mg capsule doxepin 50 mg capsule completed doxepin hydroc hloride 50 MG Oral Capsule SUGAR TREE ([facility]) Diclofenac Potassium 50 MG Oral Tablet diclofenac pota ssium 50 mg tablet diclofenac potassium 50 mg tablet comp leted diclofenac potassium 50 MG Oral Tablet SUGAR TREE ([facility]) atorvastatin 20 MG Oral Tablet atorvasta tin 20 mg tablet TAKE 1 TABLET BY MOUTH DAILY atorvastatin 20 mg tablet TAKE 1 TABLET BY MOUTH DAILY completed atorvastatin 20 MG Oral Tablet A THEN ([facility]) albuterol sulfate HFA 90 mcg/actuation aerosol inhaler [id number] completed [id number] 200 ACTUAT albuterol 0.09 MG/ACTUAT Metered Dose Inhaler SUGAR TREE ([facility]) Fluoxetine 20 MG Oral Capsule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 examination or test findings 09/21/2019 04:59:12 PM EDT [facility] [id number] Patient asked to attend Patient Asked to Attend Proble 09/21/2019 12:00:00 AM EDT - 03/02/2020 12:00:00 AM EST NICOL ([facility]) 75141989 Hyperlipidemia Hyperlipidemia Problem 09/21/2019 12:00: 00 AM EDT NICOL ([facility]) 94911563 Vitamin D deficiency Vitamin D Deficiency Problem 09/21/2019 12:00:00 AM EDT NICOL ([facility]) 917919341 Patient asked to attend Patient Asked to Attend Proble 09/21/2019 12:00:00 AM EDT - 03/02/2020 12:00:00 AM GENA CAMARENA ([facility]) 00421974 Hyperlipidemia Hyperlipidemia Problem 09/21/2019 12:00: 00 AM EDT [facility] ([facility]) 23882121 Vitamin D deficiency Vitamin D Deficiency Problem 09/21/2019 12:00:00 AM EDT NICOL ([facility]) 871827260 Patient asked to attend Patient Asked to Attend Proble 09/21/2019 12:00:00 AM EDT - 03/02/2020 12:00:00 AM GENA CAMARENA ([facility]) 97343380 Hyperlipidemia Hyperlipidemia Problem 09/21/2019 12:00: 00 AM EDT NICOL ([facility]) 70009326 Vitamin D deficiency Vitamin D Deficiency Problem 09/21/2019 12:00:00 AM EDT [facility] ([facility]) 168495277 Patient asked to attend Patient Asked to Attend Proble 09/21/2019 12:00:00 AM EDT NICOL ([facility]) 08397574 Hyperlipidemia Hyperlipidemia Problem 09/21/2019 12:00: 00 AM EDT [facility] ([facility]) 01551358 Vitamin D deficiency Vitamin D Deficiency Problem 09/21/2019 12:00:00 AM EDT [facility] ([facility]) F17.200 Nicotine dependence, unspecified, uncomp licated Nicotine dependence, unspecified, uncomplicated 09/18/2019 02:28:46 PM EDT [facility] 300.09 Anxiety depression Anxiety depression 0 04:09:25 PM EDT [facility] V70.0 Health Screening Health Screening 09/13/2019 04 :09:25 PM EDT [facility] 724.5 Chronic back pain Chronic back pain 09/13/2019 04:09:25 PM EDT [facility] M25.511 Pain in right shoulder Bilateral pain of shoulder blad es 09/13/2019 04:09:25 PM EDT [facility] 273020804 Emotional state finding Emotional State Finding Proble 09/13/2019 12:00:00 AM EDT - 03/02/2020 12:00:00 AM GENA CAMARENA ([facility]) 242985540 Clinical finding Clinical Finding Problem 020 12:00:00 AM EDT - 03/02/2020 12:00:00 AM EST NICOL ([facility]) [id number] Pain of right shoulder joint Pain of Right Sonya ulder Joint Problem 09/13/2019 12:00:00 AM EDT NICOL ([facility]) 300103079 Backache Backache Problem 09/13/2019 12:00:00 AM ED T NICOL ([facility]) 07229061 Nicotine dependence Nicotine Dependence Problem 0 09/13/2019 12:00:00 AM EDT NICOL ([facility]) 457597675 Emotional state finding Emotional State Finding Proble m 09/13/2019 12:00:00 AM EDT - 03/02/2020 12:00:00 AM EST NICOL ([facility]) 192420409 Clinical finding Clinical Finding Problem 020 12:00:00 AM EDT - 03/02/2020 12:00:00 AM EST NICOL ([facility]) [id number] Pain of right shoulder joint Pain of Right Sonya ulder Joint Problem 09/13/2019 12:00:00 AM EDT NICOL ([facility]) 510127148 Backache Backache Problem 09/13/2019 12:00:00 AM ED T NICOL ([facility]) 87294921 Nicotine dependence Nicotine Dependence Problem 0 09/13/2019 12:00:00 AM EDT NICOL ([facility]) 357154885 Emotional state finding Emotional State Finding Proble m 09/13/2019 12:00:00 AM EDT - 03/02/2020 12:00:00 AM EST NICOL ([facility]) 700940659 Clinical finding Clinical Finding Problem 020 12:00:00 AM EDT - 03/02/2020 12:00:00 AM EST NICOL ([facility]) [id number] Pain of right shoulder joint Pain of Right Sonya ulder Joint Problem 09/13/2019 12:00:00 AM EDT NICOL ([facility]) 640192577 Backache Backache Problem 09/13/2019 12:00:00 AM ED T NICOL ([facility]) 76650049 Nicotine dependence Nicotine Dependence Problem 0 09/13/2019 12:00:00 AM EDT NICOL ([facility]) 739079067 Emotional state finding Emotional State Finding Proble m 09/13/2019 12:00:00 AM EDT NICOL ([facility]) 257715733 Clinical finding Clinical Finding Problem 09/13/2019 12 :00:00 AM EDT NICOL ([facility]) [id number] Pain of right shoulder joint Pain of Right Sonya ulder Joint Problem 09/13/2019 12:00:00 AM EDT NICOL ([facility]) 617103684 Backache Backache Problem 09/13/2019 12:00:00 AM ED T NICOL ([facility]) 19298897 Nicotine dependence Nicotine Dependence Problem 0 09/13/2019 12:00:00 AM EDT NICOL ([facility]) F43.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 Adjustment disorder with mixed disturban Diagnosis 04/20/2019 08:56:13 PM [facility] Z560 Unemployment, unspecified Unemployment, unspecified Di agnosis 03/11/2019 11:01:00 AM [facility] F603 Borderline personality disorder Borderline personality disorder Diagnosis 03/11/2019 11:01:00 AM [facility] Surgeries/Procedures Procedure Description Date Indications Data Source(s) Crisis intervention service, per 15 minutes 01/26/2020 12:00:00 AM EST - 01/26/2020 12:00:00 AM EST [facility] ([facility]) Crisis intervention service, per 15 minutes 01/25/2020 12:00:00 AM EST [facility] ([facility]) Nursing Home - Case Management 05/23/2019 12:00: 00 AM EST - 05/23/2019 12:00:00 AM EST [facility] ([facility]) Nursing Home - Case Management 05/23/2019 12:00:00 AM EST [facility] ([facility]) Brief Individual Psychotherapy - 20 min 05/11/2019 12:00:00 AM EST - 05/11/2019 12:00:00 AM EST [facility] ([facility]) Brief Individual Psychotherapy - 20 min 05/11/2019 12: 00:00 AM EST [facility] ([facility]) Results ID Date Data Source [id number] 10/09/2019 12:00:00 AM EDT [facility] Name Value Range Interpretation Code Description Data Joy rce(s) Supporting Document(s) SARS coronavirus 2 RNA [Presence] in Res piratory specimen by VERONICA with probe detection [facility] This lab was ordered by Will Christianson and reported by [employer] ID Date Data Source [id number] 09/21/2019 03:45:11 PM EDT [facility] Measurements & CalculationsHeight: 65 inches (5 ft. 5 in.) 165.10 cm Weight: 171 pounds 2 oz. 77.79 kg Body Mass Index (BMI): 28.58BMI Interpretation: OverweightBody Surface Area (BSA): 1.85Weight Management Education Done (Nutrition/Physical Activity)Vital SignsTemperature: 98.3F oral Pulse Rate: 87 beats/minuteRespiratory Rate: 18 respirations/minuteBlood Pressure: 106/70 right arm sitting automaticO2 Saturation: 97% room airVital Signs performed by: Skinny Trujillo LPN, September 21, 2019 3:55 PMInitial Intake Information From: patientRoom #: 13Infectious Disease / Travel ScreeningRecent travel for you or any close contacts? NoHave you had any close contact with anyone diagnosed with or under investigation for COVID-19 (coronavirus)? NoFever? NoRespiratory symptoms: cough, cold, congestion, shortness of breath, difficulty breathing? NoLoss of smell? NoLoss of taste? NoSmoking, Tobacco, Vaping or Smoke Exposure StatusSmoke Status: current every day smokerTobacco Use: YesAdv to Quit: YesDo you vape? NoPassive Smoke Exposure: YesMenstrual HistoryAny possibility of ? NoComments: Partial Hysterectomy Healthcare HistorySince your last office visit...Have you been admitted to the hospital? NoHave you been to an emergency room (ER) or urgent care clinic? Yes - [facility] ER Emergency room (ER) or urgent care date reported today: 09/19/2019Have you seen another healthcare provider? Yes - [facility] you seen a dentist? Yes - [facility] Int[facility] performed by: Skinny Trujillo LPN, September 21, 2019 3:47 PMRate Your HealthIn general, would you say your health is? GoodPain AssessmentAre you currently having any pain which... You would like your provider to address? Yes Affects your activity level? YesDepression Screening - PHQ-2Over the last two weeks, have you... Had little interest or pleasure in doing things? Not at all Been feeling down, depressed, or hopeless? Not at all PHQ-2 Score: 0Anxiety Screening - JONATHAN-2Over the last two weeks, have you been... Feeling nervous, anxious, or on edge? Not at all Unable to stop or control worrying? Not at all JONATHAN-2 Score: 0Food I nsecurityWithin the past year...Did you worry whether your food would run out before you got money to buy more? NoWas there a time when the food you bought didn't last and you didn't have money to get more? NoPatient Learning & Communication Needs Preferred learning style: by experiencePossible barriers: nonePatient's Language used in visit: YesLanguage: czech Pain AssessmentLocation: upper back Duration: 3 weeksFrequency: DailyCharacter/Quality: aching, burning, stabbing and stingingIs the pain radiating? NoScreening, Brief Intervention, & Referral to Treatment (SBIRT)Pre- Screening Questions How many times have you have 4 or more drinks in a day? 0How many times have you used an illegal drug or used a prescription medication for a non-medical reason? 0Performed by: Skinny Trujillo LPN, September 21, 2019 3:49 PMPatient History Medical History:AnxietyBipolar disorderDepressionChronic back pain GERDIrritable bowel syndromeUTIs - ChronicInsomniaSurgical History:Hysterectomy (Partial)Family History:Anxiety (Mother)Bipolar disorder (Mother)Depression (Mother)Schizophrenia (Mother)Substance abuse (Mother)Social/Personal History: Advised to Quit/Tobacco Education: YesChief Complaintlab results RM 13 History of Present Illness (HPI)39 yo female Pt here today for lab results. Pt states she is taking all medication with no side efffects or issues. Pt requesting refill of Gabapentin. Pt states she has upper back pain that is chronic. Pt states healthy diet and physical activities. HPI performed by: Rahel MEZA, September 21, 2019 4:56 PMTransitions of Care InboundProblem ReviewProblem List was reviewed and/or updated during this visit.Medication Reconciliation & ReviewMedication List was reviewed and/or updated during this visit, including review of any [id number] medications, herbal therapies, and/or supplements.Allergy ReviewAllergy List was reviewed and/or updated during this visit.Adult Preventive CareProvider Calculated and Reviewed all Clinical Protocols for patient today. Screening Tobacco Screening: Smoking Status: current every day smoker (09/21/2019) Tobacco Use: Currently (09/21/2019) Advised to Quit: Yes (09/21/2019)Labs/Meds/Other Counseling- Nutrition and Physical Activity:BMI Interpretation: Overweight (09/21/2019) Counseling: Done (09/21/2019) Physical Activity: Done (09/21/2019)Review of Systems General: Denies loss of appetite, chills, dizziness, fatigue, fever, continued fever, headache, feeling ill, sweats, night sweats, sleep disturbances, weight loss. Eyes: Denies blurring of vision, double vision, irritation, discharge, vision loss, eye pain, eye swelling, droopy eyelid, sensitivity to light, redness, itching. Ears/Nose/Throat: Denies earache, ear discharge, ringing in ears, decreased hearing, nasal congestion, nosebleeds, runny nose, sore throat, hoarseness, difficulty swallowing, dry mouth, tooth pain, bleeding gums, swollen glands. Cardiovascular: Denies chest pain, palpitations, feeling faint, trouble breathing w/exertion, SOB upon lying down, SOB at night, peripheral edema, elevated blood pressure, decreased heart rate. Respiratory: Denies cough, difficulty breathing, shortness of breath, excessive sputum, coughing up blood, wheezing, chest pain. Breast: Denies discoloration, tenderness, breast changes, breast lump, nipple discharge. Gastrointestinal: Denies nausea, vomiting, bleeding, burning, itching, irritation, cramps, diar jaimee, constipation, abdominal pain, blood in stool, heartburn. Genitourinary: Denies urinary incontinence, pain with urination, burning with urination, urinary frequency, urinary hesitancy, urinary urgency, urinary urgency at night, incomplete emptying, blood in urine. Musculoskeletal: Complains of back pain, joint pain. Patient states chronic back and shoulder painSkin: Denies rash, hives, redness, itching, dryness, nail changes, suspicious lesions, athlete's foot, rash on palms, rash on bottom of feet. Neurologic: Denies muscle impairment, weakness, numbness/tingling, seizures, slurred speech, feeling faint, tremors, vertigo, paralysis on one side, paralysis on both sides. Psychiatric: Denies depression, anxiety, memory loss, mental disturbance, suicidal ideation, homicidal ideation, hallucinations, paranoia, feeling stressed, hearing voices. Endocrine: Denies cold intolerance, heat intolerance, excessive thirst, excessive hunger, excessive urination, weight loss, weight gain. Physical ExamGeneral Appearance: well nourished, well hydrated, no acute distressEyes, External: conjunctivae and lids normal, EOMIRespiratory, Auscultation: clear to auscultation bilaterally; no rales, rhonchi, or wheezesRespiratory, Effort: no intercostal retractions or use of accessory musclesCardiovascular, Auscultation: S1, S2 audible; no murmur, rub, or gallop; RRRPeripheral Circulation: no clubbing, cyanosis, edema, or varicositiesAbdomen: soft, non-tender, no masses, bowel sounds normalGait & Station: normalSkin, Inspection: no rashes, lesions, or ulcerationsOrientation: oriented to time, pl chente, and personMood & Affect: no depression, anxiety, or agitationJudgment & Insight: seems intactCare Management Plan Transitions of CareInboundRate Your HealthIn general, would you say your health is? GoodAssessment & Plan Problems:Added: Person consulting for explanation of examination or test findings (ICD-V65.8) (RNL58-C82.2) Assessment: Instructions: We have reviewed your lab results with you today.Hyperlipidemia, unspecified (ICD10- E78.5) Assessment: Instructions: cholesterol levels elevated. We have sent a prescription to your pharmacy today. Please take medication as prescribed. Please report any major side effects. Please start lifestyle changes to include healthy diet and physical activities. Please try to limit sodium, fats, sugars and carbohydrates in your diet. Please try to avoid processed foods.vitamin D deficiency (ICD-268.9) (VWF21-F80.9) Assessment: Instructions: Vitamin D tablets sent to pharmacy for you today.Assessed:Bilateral pain of shoulder ignacia chitra (VFA77-I07.511) Assessment: Pt previously took gabapentin 600 mg, states was effective at that dose. Trial of 300mg three times daily. Pt states not not effective. will increase to 600 mg, if not effective, will consider referral to orthopedic. Instructions: We have increased the dose of your gabapentin today. Please take medication as prescribed. Plkease report any major side effects. May take warm baths and showers to help relax muscles.Nicotine dependence, unspecified, uncomplicated (CAQ18-H74.200) Assessment: 1 pack cigarettes weekly. Instructions: Please continue to try to cut back on your smoking with a goal to quit.Health Screening (ICD-V70.0) (TQY12-Q06.9) Assessment: Instructions: lab resultts reviewed with you today. We will recheck labs in three months.Anxiety depression (ICD-300.09) (UWW25-R19.8) Assessment: Stable on meds , per patient. Instructions: Please continue to follow with your specialist at [facility] as scheduled. Please continue medications as prescribed.C hronic back pain (ICD-724.5) (PSN61-O12.9) Assessment: Instructions: dose of Gabapentin increased today.Assessment not Saved Anxiety depression (ICD10- F41.8): Patient Instructions/Care Plan: Bilateral pain of shoulder blades: We have increased the dose of your gabapentin today. Please take medication as prescribed. Plkease report any major side effects. May take warm baths and showers to help relax muscles.Nicotine dependence- unspecified- uncomplicated: Please continue to try to cut back on your smoking with a goal to quit.Person consulting for explanation of examination or test findings: We have reviewed your lab results with you today.Hyperlipidemia- unspecified: cholesterol levels elevated. We have sent a prescription to your pharmacy today. Please take medication as prescribed. Please report any major side effects. Please start lifestyle changes to include healthy diet and physical activities. Please try to limit sodium, fats, sugars and carbohydrates in your diet. Please try to avoid processed foods.Health Screening: lab resultts reviewed with you today. We will recheck labs in three months.vitamin D deficiency: Vitamin D tablets sent to pharmacy for you today.Anxiety depression: Please continue to follow with your specialist at [facility] as scheduled. Please continue medications as prescribed.Chronic back pain: dose of Gabapentin increased today. Plan developed in collaboration with patient and/or familyMedications:VITAMIN D3 93219 UNIT ORAL TABLETLIPITOR 20 MG ORAL TABLETGABAPENTIN 600 MG ORAL TABLETMIRTAZAPINE 30 MG ORAL TABLETQUETIAPINE FUMARATE ER 400 MG ORAL TABLET EXTENDED RELEASE 24 HOURDICYCLOMINE HCL 20 MG ORAL TABLETCLONAZEPAM 1 MG ORAL TABLETFLUOXETINE HCL 20 MG ORAL CAPSULEFLUOXETINE HCL 40 MG ORAL CAPSULEDOXEPIN HCL 25 MG ORAL CAPSULEMedication Changes:Refilled:GABAPENTIN 600 MG ORAL TABLET- take one tablet three times daily as needed Qty: 90[Tablet] Refills: 3 Method: ElectronicNew Prescription:LIPITOR 20 MG ORAL TABLET-take one tablet by mouth daily at bedtime Qty: 30[Tablet] Refills: 2 Method: ElectronicVITAMIN D3 91664 UNIT ORAL TABLET-1 po q wk for 12 wks, then change to 1000 unit tablet daily thereafter Qty: 12[Tablet] Refills: 0 Method: ElectronicChanged:From: ORAL GABAPENTIN 300 MG ORAL CAPSULE Qty: [id number] Refills: 90[Tablet] To: GABAPENTIN 600 MG ORAL TABLET-take one tablet three times daily as needed Qty: 90[Tablet] Refills: 3Allergies:No Known Allergies (updated 09/13/2019) Orders:COMP METABOLIC PANEL [CPT-81554] CBC W/DIFF [CPT-75325] HgBA1c [CPT- 90301] LIPID PANEL [CPT-16286] TSH [CPT-78290] T-4 free [CPT-12489] Vitamin D 250H Unspecified [CPT-05275] Adult - Ofc Vst, EST, Level IV [CPT-64611] Follow- Up Return to clinic: 3 months for follow up Clinical Visit Summary CompletedMedications:VITAMIN D3 36676 UNIT ORAL TABLET (CHOLECALCIFEROL) 1 po q wk for 12 wks, then change to 1000 unit tablet daily thereafter #12[Tablet] x 0 Route:ORAL Entered and Authorized by: Rahel MEZA Method used: Electronically to [facility] ([employer]) [address] [place] [address] Note to Pharmacy: Route: ORAL; Indications: VITAMIN D DEFICIENCY RxID: [id number] 20 MG ORAL TABLET (ATORVASTATIN CALCIUM) take one tablet by mouth daily at bedtime #30[Tablet] x 2 Route:ORAL Entered and Authorized by: Rahel MEZA Method used: Electronically to [facility] ([employer]) [address] [place] [address] Note to Pharmacy: Route: ORAL; Indications: HYPERLIPIDEMIA, UNSPECIFIED RxID: [id number] 600 MG ORAL TABLET (GABAPENTIN) take one tablet three times daily as needed #90[Tablet] x 3 Route:ORAL Entered and Authorized by: Rahel MEZA Method used: Electronically to [facility] ([employer]) [address] [place] [address] Note to Pharmacy: Route: ORAL; Indications: BILATERAL PAIN OF SHOULDER BLADES;CHRONIC BACK PAIN RxID: [id number] signed by Rahel MEZA on 09/27/2019 at 4:26 PM Name Value Range Interpretation Code Description Data Joy rce(s) Supporting Document(s) ID Date Data Source [id number] 09/16/2019 11:14:57 AM EDT [facility] Labs In-House Urine TestsDate/Time Colle cted: September 16, 2019 10:00 AMTest Result Reference Range Normal ValueDenita Montez, September 16, 2019 11:15 AMBlood TestsDate/Time Collected: September 16, 2019 9:50 AMTest Result Reference Range Normal ValueComments: blood draw done in office, taken from left ac, tolerated well.Denita Montez, September 16, 2019 11:15 AMAssessment & Plan Orders:[id number]-[id number] Vst-Est Level I [CPT-43301] 52780 - Venipuncture [CPT-77730] Name Value Range Interpretation Code Description Data Joy rce(s) Supporting Document(s) ID Date Data Source [id number] 09/16/2019 09:50:00 AM EDT [facility] Name Value Range Interpretation Code Description Data Joy rce(s) Supporting Document(s) VIT D25 TOT 15.0 ng/mL 30.0-100.0 L [facility] BG FASTING 101 mg/dL 70-[address] [facility] T4, FREE 0.70 ng/dL 0.76-1.[address] [facility] TSH 0.928 microintl units/mL 0.358-3.740 N [facility] ID Date Data Source [id number] 09/16/2019 09:50:00 AM EDT [facility] Name Value Range Interpretation Code Description Data Joy rce(s) Supporting Document(s) HCT 40.2 % 36.0-47.0 N [facility] HGB 12.9 g/dL 12.0-15.5 N [facility] MCH 32.1 G/DL pg 32.0-36.5 N [facility] MCHC 30.2 PG % 27.0-33.0 N [facility] PLATELETS 239 10 10*3/mm3 150-450 N [facility] RBC 4.27 10 10*6/mm3 4.00-5.40 N [facility] RDW 14.6 % 11.5-14.5 H [facility] WBC TOTAL 6.6 4.0-10.0 N [facility] ID Date Data Source [id number] 09/16/2019 09:50:00 AM EDT [facility] Name Value Range Interpretation Code Description Data Joy rce(s) Supporting Document(s) APPEARANCE U CLOUDY CLEAR H [facility] SPEC GR URIN 1.012 1.002-1.035 N [facility] UA COLOR YELLOW YELLOW N [facility] ID Date Data Source [id number] 09/16/2019 09:50:00 AM EDT [facility] Name Value Range Interpretation Code Description Data Joy rce(s) Supporting Document(s) HGBA1C 5.6 % N [facility] ID Date Data Source [id number] 09/13/2019 02:38:59 PM EDT [facility] Measurements & CalculationsHeight: 65 inches (5 ft. 5 in.) 165.10 cm Weight: 174 pounds 6 oz. 79.26 kg Body Mass Index (BMI): 29.12BMI Interpretation: OverweightBody Surface Area (BSA): 1.87Weight Management Education Done (Nutrition/Physical Activity)Vital SignsTemperature: 98.8F tympanic Pulse Rate: 92 beats/minuteRespiratory Rate: 18 respirations/minuteBlood Pressure: 107/74 right arm sitting automaticO2 Saturation: 97% room airVital Signs performed by: Skinny Trujillo LPN, September 13, 2019 3:07 PMInitial Intake Information From: patientRoom #: 12Infectious Disease / Travel ScreeningRecent travel for you or any close contacts? NoHave you had any close contact with anyone diagnosed with or under investigation for COVID-19 (coronavirus)? NoFever? NoRespiratory symptoms: cough, cold, congestion, shortness of breath, difficulty breathing? NoLoss of smell? NoLoss of taste? NoSmoking, Tobacco, Vaping or Smoke Exposure StatusSmoke Status: current every day smokerTobacco Use: YesAdv to Quit: YesDo you vape? NoPassive Smoke Exposure: YesMenstrual HistoryAny possibility of ? NoComments: Partial Hysterectomy Healthcare HistorySince your last office visit...Have you been admitted to the hospital? NoHave you been to an emergency room (ER) or urgent care clinic? Yes - [facility] ER Emergency room (ER) or urgent care date reported today: 08/24/2019Have you seen another healthcare provider? Yes - [facility]Have you seen a dentist? Yes - [facility] performed by: Luisana Linares LPN 2019 2:42 PMRate Your HealthIn general, would you say your health is? Very GoodPain AssessmentAre you currently having any pain which... You would like your provider to address? Yes Affects your activity level? YesDepression Screening - PHQ-2Over the last two weeks, have you... Had little interest or pleasure in doing things? Not at all Been feeling down, depressed, or hopeless? Not at all PHQ-2 Score: 0Anxiety Screening - JONATHAN-2Over the last two weeks, have you been... Feeling nervous, anxious, or on edge? Nearly every day Unable to stop or control worrying? Not at all JONATHAN-2 Score: 3Food InsecurityWithin the past year...Did you worry whether your food would run out before you got money to buy more? NoWas there a time when the food you bought didn't last and you didn't have money to get more? NoPatient Learning & Communication Needs Preferred learning style: by experiencePossible barriers: nonePatient's Language used in visit: YesLanguage: Angolan Generalized Anxiety Disorder 7-Item Screening (JONATHAN-7)Answer Guide:0 = Not at all1 = Several days2 = Over half the days3 = Nearly every dayOver the last 2 weeks, how often have you been bothered by the following problems?Feeling nervous, anxious, or on edge: 3Not being able to stop or control worryinWorrying too much about different things: 3Trouble relaxinBeing so restless that it's hard to sit still: 1Becoming easily annoyed or irritable: 3Feeling afraid as if something awful might happen: 0Answer Guide:0 = Not difficult at all1 = Somewhat difficult2 = Very difficult3 = Extremely difficultHow difficult have these made it for you to do your work, take care of things at home, or get along with other people? 1GAD- 7 Screening Results JONATHAN-2 Score: 3GAD-7 Score: 13Functional Impairment: Somewhat difficultRecommendation: Moderate anxietyPHQ-9 1. Over the last 2 weeks, patient reports the following frequency of symptoms: a. Little interest or pleasure in doing things -Not at all b. Feeling down, depressed, or hopeless -Not at all c. Trouble falling asleep, staying asleep, or sleeping too much -More than half the days d. Feeling tired or having little energy -Not at all e. Poor appetite or overeating -Not at all f. Feeling bad about yourself, feeling that you are a failure, or feeling that you have let yourself or your family down -Not at all g. Trouble concentrating on things such as reading the newspaper or watching television -Not at all h. Moving or speaking so slowly that other people could have noticed. Or being so fidgety or restless that you have been moving around a lot more than usual -Not at all i. Thinking that you would be better off or that you want to hurt yourself in some way -Not at all2. If you checked off any problems, how difficult have these problems made it for you to do your work, diamond e care of things at home, or get along with other people? - Somewhat DifficultToday's PHQ-9 Results Score: 2 Severity: Minimal Diagnosis Recommendation: No recommendation Functional Impairment: Somewhat DifficultToday's Follow-Up Action Depression follow-up done. Follow-Up Action: already established at [facility] AssessmentPain ScaleNumeric Rating Scale: 7 / 10Location: upper back Duration: 1 weekFrequency: DailyCharacter/Quality: aching, burning, stabbing and stinging. twiating Is the pain radiating? NoPRAPARE Sociodemographic Characteristics Race: White Ethn icity: or Preferred Language: EnglishFamily and Home Address: [address] [place] [address] What is your housing situation today? I have housing Are you worried about losing your housing? NoMoney and Resources What is the highest level of school that you have finished? some college Employed? No Are you seeking work? No Insurance: [facility]In the past year, have you or any family members you live with been unable to get any of the following when it was really needed? Denies Insecurity: food, utilities, clothing, child care cook, phone, legal services, otherWithin the past year did you worry whether your food would run out before you got money to buy more? NoWithin the past year was there a time when the food you bought didn't last and you didn't have money to get more? NoIn the past year, have you had trouble affording costs associated with health insurance (such as deductibles, co-payments, etc.)? NoSocial and Emotional Health How often do you see or talk to people that you care about and feel close to? More than 5 times a week How stressed are you? Quite a bitAdditional Optional Domains In the past 3 months, have you spent more than 2 nights in a row in a skilled nursing, senior care, half-way center or juvenile correctional facility? No Has lack of transportation kept you from medical appointments or from getting your medications? NoIn the past year, have you had trouble getting any of the following when it was really needed (check all that apply)?noneIn the past year, have you had trouble paying the costs associated with health care or medicine (such as co-payments, costs for services, prices of medicines)? NoHow confident are you that you can control and manage most of your health problems? Very confident Are you a refugee? No (Country of origin: [place]) Do you feel physically and emotionally safe where you live? Yes In the past year, have you been afraid of a partner, ex-partner? NoScreening, Brief Intervention, & Referral to Treatment (SBIRT)Pre-Screening Questions How many times have you have 4 or more drinks in a day? 0How many times have you used an illegal drug or used a prescription medication for a non- medical reason? 0Performed by: Skinny Trujillo LPN, September 13, 2019 2:51 PMPatient History Medical History:AnxietyBipolar disorderDepressionChronic back pain GERDIrritable bowel syndromeUTIs - ChronicInsomniaSurgical History:Hysterectomy (Partial)Family History:Anxiety (Mother)Bipolar disorder (Mother)Depression (Mother)Schizophrenia (Mother)Substance abuse (Mother)Social/Personal History: Advised to Quit/Tobacco Education: YesChief ComplaintNEW PE RM 12 History of Present Illness (HPI)39 yr old female Pt here today to establish care. Pt state she is currently having upper back pain. Pt states she is taking all medication with no side effects or issues. Pt states originally from [facility] moved here about two years ago. 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 Pt states mother of three adult children but has custody od lyle. ages 15 and 8 years old. pt states seen at [facility] for her mental deep needs. Pt states has a glass of wine with dinner. Pt states smokes about one pack cigarettes daily. patient states ongoing back and shoulder pain. Pt states took gabapentin and muscle relaxers in the past that was effective. Pt states was seen by primary care at [facility] last year.Pt states was discharged for missing one appointment. Pt denies other concerns today. HPI performed by: Rahel MEZA, September 13, 2019 3:44 PMTransitions of Care InboundProblem ReviewProblem List was reviewed and/or updated during this visit.Medication Reconciliation & ReviewMedication List was reviewed and/or updated during this visit, including review of any rkag-nqu-veslohe medications, herbal therapies, and/or supplements.Allergy ReviewAllergy List was reviewed and/or updated during this visit. Patient has no known allergies.Adult Preventive CareProvider Calculated and Reviewed all Clinical Protocols for patient today. Screening Tobacco Screening: Smoking Status: current every day smoker (09/13/2019) Tobacco Use: Currently (09/13/2019) Advised to Quit: Yes (09/13/2019)Labs/Meds /Other Counseling-Nutrition and Physical Activity:BMI Interpretation: Overweight (09/13/2019) Counseling: Done (09/13/2019) Physical Activity: Done (09/13/2019)Cancer Screening Pap Smear/HPV TestingReviewed: Today's Comments: Pt would like a referral Review of Systems General: Denies loss of appetite, chills, dizziness, fatigue, fever, continued fever, headache, feeling ill, sweats, night sweats, sleep disturbances, weight loss. Eyes: Denies blurring of vision, double vision, irritation, discharge, vision loss, eye pain, eye swelling, droopy eyelid, sensitivity to light, redness, itching. Ears/ Nose/Throat: Denies earache, ear discharge, ringing in ears, decreased hearing, nasal congestion, nosebleeds, runny nose, sore throat, hoarseness, difficulty swallowing, dry mouth, tooth pain, bleeding gums, swollen glands. Cardiovascular: Denies chest pain, palpitations, feeling faint, trouble breathing w/exertion, SOB upon lying down, SOB at night, peripheral edema, elevated blood pressure, decreased heart rate. Respiratory: Denies cough, difficulty breathing, shortness of breath, excessive sputum, coughing up blood, wheezing, chest pain. Breast: Denies discoloration, tenderness, breast changes, breast lump, nipple discharge. Gastrointestinal: Denies nausea, vomiting, diarrhea, constipation. Genitourinary: Denies urinary incontinence, pain with urination, burning with urination, urinary frequency, urinary hesitancy, urinary urgency, urinary urgency at night, incomplete emptying, blood in urine, pelvic pain. Musculoskeletal: Complains of back pain, joint pain, muscle aches. Denies leg pain, other pain-see comments, joint swelling, body aches, muscle cramps, muscle weakness, stiffness, recent injury. Skin: Denies rash, hives, redness, itching, dryness, nail changes, suspicious lesions, athlete's foot, rash on palms, rash on bottom of feet. Neurologic: Complains of numbness/tingling. shoulders bilatPsychiatric: Denies depression, anxiety, memory loss, mental disturbance, suicidal ideation, homicidal ideation, hallucinations, paranoia, feeling stressed, hearing voices. Endocrine: Denies cold intolerance, heat intolerance, excessive thirst, excessive hunger, excessive urination, weight loss, weight gain. Heme/Lymphatic: Denies abnormal bruising, bleeding, enlarged lymph nodes. Physical ExamGeneral Appearance: well nourished, well hydrated, no acute distressEyes, External: conjunctivae and lids normal, EOMIRespiratory, Auscultation: clear to auscultation bilaterally; no rales, rhonchi, or wheezesRespiratory, Effort: no intercostal retractions or use of accessory musclesCardiovascular, Auscultation: S1, S2 audible; no murmur, rub, or gallop; RRRPeripheral Circulation: no clubbing, cyanosis, edema, or varicositiesAbdomen: soft, non-tender, no masses, bowel sounds normalGait & Station: normalBack: midline, straight, no lordosis or kyphosis, tenderness on palpation upper back. Upper Extremity, Right: Pain on ROMUpper Extremity, Left: Pain on ROMSkin, Inspection: no rashes, lesions, or ulcerationsOrientation: oriented to time, place, and personMood & Affect: no depression, anxiety, or agitationJudgment & Insight: intactCare Management Plan Transitions of Care InboundRate Your HealthIn general, would you say your health is? Very GoodAssessment & Plan Problems:Added: Anxiety depression (ICD-300.09) (ICD10- F41.8) Assessment: Instructions: [facility]. Please continue medications as prescribed.Health Screening (ICD-V70.0) (QGQ65-L61.9) Assessment: Instructions: Fasting labs ordered for you today. Please return prior to your next visit to have labs drawn. Please fast for 8-10 hours prior.Chronic back pain (ICD-724.5) (GDE25-Z17.9) Assessment: Instructions: We have sent a prescription to your pharmacy today. Please take medication as prescribed. Plkease report any major side effects. May take warm baths and showers to help relax muscles. Please try to avoid streneous activities. Please try to avoid proloned sitting or standing.Please return to see Dr Moffett for additional reval of your back pain.Bilateral pain of shoulder blades (NXZ52-K69.511) Assessment: Instructions: We have sent a prescription to your pharmacy today. Please take medication as prescribed. Plkease report any major side effects. May take warm baths and showers to help relax muscles.Nicotine dependence, unspec ified, uncomplicated (DQQ19-C05.200) Assessment: smokes 1 pack cigarettes daily. Instructions: Please try to cut back on your smoking with a goal to quit.Patient Instructions/Care Plan: Anxiety depression: Please continue to follow with your specialist at [facility] as scheduled. Please continue medications as prescribed.Health Screening: Fasting labs ordered for you today. Please return prior to your next visit to have labs drawn. Please fast for 8-10 hours prior.Chronic back pain: We have sent a prescription to your pharmacy today. Please take medication as prescribed. Plkease report any major side effects. May take warm baths and showers to help relax muscles. Please try to avoid streneous activities. Please try to avoid proloned sitting or standing.Please return to see Dr Moffett for additional reval of your back pain.Bilateral pain of shoulder blades: We have sent a prescription to your pharmacy today. Please take medication as prescribed. Plkease report any major side effects. May take warm baths and showers to help relax muscles.Nicotine dependence- unspecified- uncomplicated: Please try to cut back on your smoking with a goal to quit. Plan developed in collaboration with patient and/or familyMedications:GABAPENTIN 300 MG ORAL CAPSULEMIRTAZAPINE 30 MG ORAL TABLETQUETIAPINE FUMARATE ER 400 MG ORAL TABLET EXTENDED RELEASE 24 HOURDICYCLOMINE HCL 20 MG ORAL TABLETCLONAZEPAM 1 MG ORAL TABLETFLUOXETINE HCL 20 MG ORAL CAPSULEFLUOXETINE HCL 40 MG ORAL CAPSULEDOXEPIN HCL 25 MG ORAL CAPSULEMedication Changes:Added: DOXEPIN HCL 25 MG ORAL CAPSULE-1 capsule PO at bed timeFLUOXETINE HCL 40 MG ORAL CAPSULE-1 capsule PO dailyFLUOXETINE HCL 20 MG ORAL CAPSULE-1 capsule PO dailyCLONAZEPAM 1 MG ORAL TABLET-1 tab PO daily and 1.5 tab at bed timeDICYCLOMINE HCL 20 MG ORAL TABLET-1 tab PO QIDQUETIAPINE FUMARATE ER 400 MG ORAL TABLET EXTENDED RELEASE 24 HOUR-2 tab PO at bedtimeMIRTAZAPINE 30 MG ORAL TABLET-1 tab PO at bed timeNew Prescription:GABAPENTIN 300 MG ORAL CAPSULE-take one tablet by mouth three times daily Qty: 30[Capsule] Refills: 0 Method: ElectronicAllergies:No Known Allergies (updated 09/13/2019) Orders:COMP METABOLIC PANEL [CPT-80504] CBC W/DIFF [CPT-78850] HgBA1c [CPT-79878] LIPID PANEL [CPT-06221] TSH [CPT-53707] T- 4 free [CPT-59510] Vitamin D 250H Unspecified [CPT-88468] URINALYSIS [CPT-75519] Adult - Ofc Vst, NEW, Level III [CPT-98567] Follow-Up Return to clinic: 1-2 we eks for follow up Clinical Visit Summary CompletedMedications:GABAPENTIN 300 MG ORAL CAPSULE (GABAPENTIN) take one tablet by mouth three times daily #30[Capsule] x 0 Route:ORAL Entered and Authorized by: Rahel MEZA Method used: Electronically to [facility]* (retail) [address] [place] [address] Note to Pharmacy: Route: ORAL; Indications: BILATERAL PAIN OF SHOULDER BLADES;CHRONIC BACK PAIN RxID: [id number] signed by Rahel MEZA on 09/18/2019 at 2:28 PM Name Value Range Interpretation Code Description Data Joy rce(s) Supporting Document(s) ID Date Data Source [id number] 07/20/2019 02:09:00 PM EDT [facility] ([facility]) Name Value Range Interpretation Code Description Data Joy rce(s) Supporting Document(s) Thyrotropin [Units/volume] in Serum or Plasma 2.210 uIU/ML 0.358-3.74 0 [facility] ([facility]) Patient notified of test results today. She will see RECONDITIONER in f/u Thyroxine (T4) free [Mass/volume] in Serum or Plasma 0.91 ng/dL 0.76- 1.46 [facility] ([facility]) Patient notified of test results today. She will see RECONDITIONER in f/u ID Date Data Source [id number] 07/20/2019 02:09:00 PM EDT [facility] ([facility]) Name Value Range Interpretation Code Description Data Joy rce(s) Supporting Document(s) Glucose, Fasting 97 mg/dL 70-100 [facility] ([facility]) Patient notified of test results today. She will see RECONDITIONER in f/u Blood Urea Nitrogen 7 mg/dL 7-18 [facility] ([facility]) Patient notified of test results today. She will see RECONDITIONER in f/u Glomerular Filtration Rate Laboratory test result [facility] ([facility]) Patient notified of test results today. She will see RECONDITIONER in f/u Creatinine For GFR 0.65 mg/dL 0.55-1.30 [facility] ([facility]) Patient notified of test results today. She will see RECONDITIONER in f/u Sodium Level 140 meq/L 136-145 [facility] ([facility]) Patient notified of test results today. She will see RECONDITIONER in f/u Potassium Serum 4.3 meq/L 3.5-5.1 [facility] ([facility]) Patient notified of test results today. She will see RECONDITIONER in f/u Chloride Level 108 meq/L 98-107 [facility] ([facility]) Patient notified of test results today. She will see RECONDITIONER in f/u Carbon Dioxide Level 25 meq/L 21-32 [facility] ([facility]) Patient notified of test results today. She will see RECONDITIONER in f/u Calcium Level 9.8 mg/dL 8.5-10.1 [facility] ([facility]) Patient notified of test results today. She will see RECONDITIONER in f/u Anion Gap 7 meq/L 8-16 [facility] ([facility]) Patient notified of test results today. She will see RECONDITIONER in f/u Ast/Sgot 14 U/L 7-37 [facility] ([facility]) Patient notified of test results today. She will see RECONDITIONER in f/u Alt/SGPT 25 U/L 12-78 [facility] ([facility]) Patient notified of test results today. She will see RECONDITIONER in f/u Bilirubin,Total 0.4 mg/dL 0.2-1.0 [facility] ([facility]) Patient notified of test results today. She will see RECONDITIONER in f/u Total Protein 7.1 GM/DL 6.4-8.2 [facility] ([facility]) Patient notified of test results today. She will see RECONDITIONER in f/u Alkaline Phosphatase 99 U/L 45-117 [facility] ([facility]) Patient notified of test results today. She will see RECONDITIONER in f/u Albumin 4.1 GM/DL 3.2-5.2 [facility] ([facility]) Patient notified of test results today. She will see RECONDITIONER in f/u Albumin/Globulin Ratio 1.37 1.00-1.93 [facility] ([facility]) Patient notified of test results today. She will see RECONDITIONER in f/u ID Date Data Source [id number] 07/20/2019 02:09:00 PM EDT [facility] ([facility]) Name Value Range Interpretation Code Description Data Joy rce(s) Supporting Document(s) White Blood Count 7.6 10 4.0-10.0 [facility] ([facility]) Patient notified of test results today. She will see RECONDITIONER in f/u Hemoglobin 14.2 g/dL 12.0-15.5 [facility] ([facility]) Patient notified of test results today. She will see RECONDITIONER in f/u Red Blood Count 4.73 10 4.00-5.40 [facility] ([facility]) Patient notified of test results today. She will see RECONDITIONER in f/u Mean Corpuscular Hemoglobin 30.0 pg 27.0-33.0 [facility] ([facility]) Patient notified of test results today. She will see RECONDITIONER in f/u Hematocrit 43.7 % 36.0-47.0 MEDENT ([facility]) Patient notified of test results today. She will see RECONDITIONER in f/u Mean Corpuscular Volume 92.4 fl 80.0-96.0 M EDENT ([facility]) Patient notified of test results today. She will see RECONDITIONER in f/u Red Cell Distribution Width 14.0 % 11.5-14.5 MEDENT ([facility]) Patient notified of test results today. She will see RECONDITIONER in f/u Mean Corpuscular HGB Conc 32.5 g/dL 32.0-36.5 MEDENT ([facility]) Patient notified of test results today. She will see RECONDITIONER in f/u Platelet Count, Automated 285 10 150-450 MEDENT ([facility]) Patient notified of test results today. She will see RECONDITIONER in f/u Lymph % 39.0 % 24.0-44.0 MEDENT ([facility]) Patient notified of test results today. She will see RECONDITIONER in f/u Neutrophils % 51.4 % 36.0-66.0 MEDENT ([facility]) Patient notified of test results today. She will see RECONDITIONER in f/u Steuben % 5.4 % 0.0-5.0 MEDENT ([facility]) Patient notified of test results today. She will see RECONDITIONER in f/u Baso % 0.9 % 0.0-1.0 MEDENT ([facility]) Patient notified of test results today. She will see RECONDITIONER in f/u Eos % 1.3 % 0.0-3.0 MEDENT ([facility]) Patient notified of test results today. She will see RECONDITIONER in f/u Immature Granulocyte % 2.0 % 0-3.0 MEDENT ([facility]) Patient notified of test results today. She will see RECONDITIONER in f/u Nucleated Red Blood Cell % 0.0 % 0-0 MED ENT ([facility]) Patient notified of test results today. She will see RECONDITIONER in f/u Neutrophils # 3.9 10 1.5-8.5 MEDENT ([facility]) Patient notified of test results today. She will see RECONDITIONER in f/u Lymph # 3.0 10 1.5-5.0 MEDENT ([facility]) Patient notified of test results today. She will see RECONDITIONER in f/u [place] # 0.4 10 0.0-0.8 MEDENT ([facility]) Patient notified of test results today. She will see RECONDITIONER in f/u Baso # 0.1 10 0.0-0.2 MEDENT ([facility]) Patient notified of test results today. She will see RECONDITIONER in f/u Eos # 0.1 10 0.0-0.5 MEDENT ([facility]) Patient notified of test results today. She will see RECONDITIONER in f/u ID Date Data Source [id number] 07/20/2019 01:37:00 PM EDT MEDENT ([facility]) Name Value Range Interpretation Code Description Data Joy rce(s) Supporting Document(s) Bacteria identified in Urine by Culture Laboratory test result MEDENT ([facility]) Bactrim/Phyridium. patient notified. ID Date Data Source [id number] 04/20/2019 08:15:24 PM EST [facility] NT INFORMATIONPatient MRN Name Date of Age Gend*PT [id number] Bijan Grewal 1980 38 years F CPEPPT Location Admission Date/Time Visit ID Attending Provider --- --- --- Tawnya Jefferson MD([id number]) EPI ID CSN Admitting Provider [id number] ---CPEP PSYCHIATRIC ASSESSMENTPatient Name: Bijan GrewalPatient at CPEP: 04/20/19 1852Psychiatrist First Contact: 04/20/19 1939 : Tawnya Jefferson, [facility] ComplaintChief ComplaintPatient presents with Psychiatric Evaluation Pt brought in by police after she was found shoplifting. pt states "I wasshoplifting, I am biploar and I have been in this manic episode for approx 2months. I have been going [facility] and [facility] has been trying to adjustmy meds but they are waiting for my lithium level and I have been reallyemotional. I feel like I wouldn't care if something happened to me but I am notsuicidal I have a lot to live for and I wouldn't do that to my family." ptdenies HI/AVH.Current StressorsCurrent Stressors: Pyschiatric SymptomsHistory of Present Icruljf64 yo CF presents after she expressed SI on being caught shoplifting clothesfrom a store at [employer], "I show lifted at the mall and got reallyemotional. They arrested me and brought me here. I told them if something was tohappen to me it won't bother me but I didn't meant to hurt myself, I have 5kids. " And, pt interactive, no racing of thoughts.Pt.'s contacted on phone and has no concerns about pt.'s safety in thecommunityPatient InfoHistory provided by: patientLanguage shoe folder used?: NoHPI: Mental Health ProblemPresenting Symptoms: depression, suicidal statement(s)Degree of incapacity (severity) : unable to specifyTiming: rareProgression: improvingChronicity: newContext : stressful life eventTreatment compliance: most of the timeRelieved by: mood stabilizersAssociated symptoms: poor judgmentRisk factors: hx of mental illnessCare Coordination/CollateralHistoryPast Psychiatric History: Is on lithium and other psych meds prescribed at [facility] [place]. Denies h/o inpt psych txOutside Treatment HistoryTreatment History Location Date of Last Tx Type of Tx Tx Reason/Dx Tx Length of Stay Tx helpful?Drug/Alcohol Rehab? Records Requested? Comments [facility] 04/13/2019 Outpatient individual treatment Bipolar d/o 2 months Unknown [facility] 01/2019 Outpatient individual treatment Biploar d/o2 years NoPast Suicide / Self Harm History: Denies h/o self harmSelf Harm/Suicide HistoryHabitual Self Harm History No Self Harm HistorySuicide History No Suicide HistoryPsychosocial Assessment: Denies problems with illegal drugs and/ or alcoholSubstance UseCurrent Substance Use: No current substance use reportedFamily HistoryHistory reviewed. No pertinent family history.Social History: Lives with , brother in law, aunt and her 4 kids - 19,18, 14 and 8 yo daughtersSocial HistoryTobacco Use Smoking status: Current Every Day Smoker Packs/day: 0.50 Types: Cigarettes Smokeless tobacco: Never UsedSubstance Use Topics Alcohol use: Not on file Drug use: Not on fileSocial HistorySubstance and Sexual ActivitySexual Activity Yes Partners: MaleRelationships and Living SituationRelationship StatusRelationship Status: MarriedSexual PreferenceSexual Preference: HeterosexualParental StatusParental Status: Has minor children in custodySocial SupportsSocial Support : SpouseResidence/HomelessResides in : Private ResidenceLives With: Child(marquita), Spouse or Partner, Other Relative(s)Was the patient homeless at any time within the past 6 months?: NoEducation / Employment / HistoryAcademicIs the patient attending school or receiving tutoring or instruction?: NoHighest Grade Achieved: 12th GradeFinancial/EmploymentCurrent Income: Supported by familyCurrent Employment Status: UnemployedEmployment Description : former title [employer]Military HistoryMilitary History: NoLegal HistoryLegal HistoryHistory of Legal Problems: YesCurrent [place] or Probation: NoChildhood Abuse/NeglectChildhood Abuse/NeglectWas patient abused or neglected as a child/adolescent?: NoAdult Abuse/NeglectIs/Was the patient abused or neglected as an adult?: NoOngoing Safety ConcernsOngoing Safety Concerns : NoScreeningSafe in Home: YesSafe in Relationship: YesMedical/Surgical HistoryHistory reviewed. No pertinent past medical history.History reviewed. No pertinent surgical history.Review of SystemsPsychiatricPsychiatric: DepressionReview of SystemsAllergic/Immunologic: No pertinent findingsCardiovascular : No pertinent findingsConstitutional Symptoms: No pertinent findingsEndocrine: No pertinent findingsEars, Nose, Mouth and Throat: No pertinent findingsEyes: No pertinent findingsGastrointestinal: No pertinent findingsGenitourinary: No pertinent findingsHemeatological/Lym phatic: No pertinent findingsMusculoskeletal: No pertinent findingsNeurological : No pertinent findingsRespiratory: No pertinent findingsSkin: No pertinent findingsVital SignsBP 122/81 (BP Location: Right upper arm, Patient Position: Sitting) | Pulse 83| Temp 97.9 F (Oral) | Resp 16 | Ht 5' 5" | Wt 68 kg | SpO2 97% | BMI24.96 kg/m Physical Dexterity CommentsMuscle Strength and Tone: Strength and tone within normal limitsGait and Station: Gait steady and station within normal limitsPsychiatric Specialty ExaminationAdult Initial Mental Status ExamConstitutional Exam: Appears Stated AgeBuild/Stature: WNLPosture: WNLHygiene/Grooming: Fair HygieneClothing: Hospital AttireEye Contact: GoodSpeech: ClearPsychomotor Activity: WNLMood: DepressedAffect: FullPerceptual Disturbances: NoneDelusions: NoneThought Process: Linear and LogicalThought Content: WNLSuicidal Ideation: Denies suicidal thoughtsHomicidal Ideation: Denies homicidal thoughtsRemote Memory: IntactRecent Memory: IntactInsight: FairJudgment: FairOrientation: Appropriately Oriented [id number] Toward Examiner: CooperativeAssociations: No loosening evidentFund of Knowledge: FairConcentration: FairAttention Span: FairCognition: IntactLanguage: Fluent in EnglishAdult Risk of Suicide Screening:In the past three months, have you wished you were or wished you could goto sleep and not wake up?: NoIn the past three months, have you actually had any thoughts of killingyourself?: No6.Have you done anything, started to do anything, or prepared to do anything toend your life?: No7.Have you made a suicide attempt in your lifetime (took action to end yourlife)? : NoRisk Assessment - Risk FactorsDiagnoses & Symptoms of Concern: : DepressionRisk Assessment - Protective FactorsProtective Factors:: Supportive social network or familyRisk Level Determination:: LowDiagnosis1. Adjustment disorder with mixed disturbance of emotions and conductLabs Obtained /ResultsLabs Reviewed - No data to displayAssessment / Discharge PlanningAs sessment / Discharge PlanningPlan/Assessment #1: No need for inpt txPlan/Assessment #2: Supportive psychotherapy givenPlan/Assessment #3: Continue present med regimenPlan/Assessment Additional Info: Refer for outpt f/uProgress Towards DischargeMDMNumber of Diagnosis or Management Options:[] Minimal [] Limited [] Multiple [] ExtensiveAmount/Complexity of Data Reviewed:[] Minimal [] Limited [] Multiple [] ExtensiveMore than 50% of this Evaluation in:[] Coordination of Care [] Treatment Planning [] Team Meeting [] Discharge Planning [] Other:[] Counseling [] Coping Skills [] Management Options [] Re:[] Medication Review [] Pt challenges need for medication [] Pt fearful of side effects [] Too early to evaluate effect [] No changes [] No side effectsBilling Code: [id number] signed byTawnya Jefferson MD04/20/192014 Name Value Range Interpretation Code Description Data Joy rce(s) Supporting Document(s) Procedure Social History Code Duration Value Status Description Data Source(s ) Smoking 01/26/2020 12:00:00 AM EST Unknown if ever smoked comp leted Unknown if ever smoked Accumedic ([facility]) Smoking 07/20/2019 12:00:00 AM EDT Patient has never smoked co mpleted Patient has never smoked MEDENT ([facility]) Smoking 05/23/2019 12:00:00 AM EST Unknown if ever smoked comp leted Unknown if ever smoked [facility] ([facility]) Smoking 05/11/2019 12:00:00 AM EST Unknown if ever smoked comp leted Unknown if ever smoked [facility] ([facility]) Cigarettes smoked current (pack per day) - Reported 04/20/19 12:00:00 AM EST UNK completed [facility] Smoking 04/20/2019 12:00:00 AM EST Current every day smoker co mpleted Current every day smoker [facility] Vital Signs ID Date Data Source UNK Name Value Range Interpretation Code Description Data Source(s) Body weight 3020.8 [oz_av] 3020.8 [oz_av] ATHEN A ([facility]) Systolic blood pressure 112 mm[Hg] 112 mm[Hg] A THEN ([facility]) Body mass index (BMI) [Ratio] 31.4 kg/m2 31.4 k g/m2 NICOL ([facility]) Body height 65 [in_i] 65 [in_i] NICOL ([facility]) Diastolic blood pressure 76 mm[Hg] 76 mm[Hg] NICOL ([facility]) Body height 65 [in_i] 65 [in_i] NICOL ([facility]) Body height 65 [in_i] 65 [in_i] NICOL ([facility]) Body height 65 [in_i] 65 [in_i] NICOL ([facility]) Body height 65 [in_i] 65 [in_i] NICOL ([facility]) Body height 65 [in_i] 65 [in_i] NICOL ([facility]) Body weight 2856 [oz_av] 2856 [oz_av] NICOL ([facility]) Systolic blood pressure 115 mm[Hg] 115 mm[Hg] A THENA ([facility]) Body mass index (BMI) [Ratio] 29.7 kg/m2 29.7 k g/m2 NICOL ([facility]) Body height 65 [in_i] 65 [in_i] NICOL ([facility]) Diastolic blood pressure 79 mm[Hg] 79 mm[Hg] NICOL ([facility]) Body weight 2856 [oz_av] 2856 [oz_av] NICOL ([facility]) Systolic blood pressure 115 mm[Hg] 115 mm[Hg] A THENA ([facility]) Body mass index (BMI) [Ratio] 29.7 kg/m2 29.7 k g/m2 NICOL ([facility]) Body height 65 [in_i] 65 [in_i] NICOL ([facility]) Diastolic blood pressure 79 mm[Hg] 79 mm[Hg] NICOL ([facility]) Body weight 2856 [oz_av] 2856 [oz_av] NICOL ([facility]) Systolic blood pressure 115 mm[Hg] 115 mm[Hg] A THENA ([facility]) Body mass index (BMI) [Ratio] 29.7 kg/m2 29.7 k g/m2 NICOL ([facility]) Body height 65 [in_i] 65 [in_i] NICOL ([facility]) Diastolic blood pressure 79 mm[Hg] 79 mm[Hg] NICOL ([facility]) Body weight 2856 [oz_av] 2856 [oz_av] NICOL ([facility]) Systolic blood pressure 115 mm[Hg] 115 mm[Hg] A THENA ([facility]) Body mass index (BMI) [Ratio] 29.7 kg/m2 29.7 k g/m2 NICOL ([facility]) Body height 65 [in_i] 65 [in_i] NICOL ([facility]) Diastolic blood pressure 79 mm[Hg] 79 mm[Hg] NICOL ([facility]) Body weight 180.00 [lb_av] 180.00 [lb_av] [facility] Respiratory rate 18 /min 18 /min MEDENT ( [facility]) Heart rate 102 /min 102 /min MEDENT ([facility]) Diastolic blood pressure 87 mm[Hg] 87 mm[Hg] MEDENT ([facility]) Systolic blood pressure 124 mm[Hg] 124 mm[Hg] M EDENT ([facility]) Body weight 2738.08 [oz_av] 2738.08 [oz_av] ATH CÉSAR ([facility]) Systolic blood pressure 106 mm[Hg] 106 mm[Hg] A THENA ([facility]) Body height 65 [in_i] 65 [in_i] NICOL ([facility]) Diastolic blood pressure 70 mm[Hg] 70 mm[Hg] NICOL ([facility]) Body weight 2738.08 [oz_av] 2738.08 [oz_av] ATH CÉSAR ([facility]) Systolic blood pressure 106 mm[Hg] 106 mm[Hg] A THENA ([facility]) Body height 65 [in_i] 65 [in_i] NICOL ([facility]) Diastolic blood pressure 70 mm[Hg] 70 mm[Hg] NICOL ([facility]) Body weight 2738.08 [oz_av] 2738.08 [oz_av] ATH CÉSAR ([facility]) Systolic blood pressure 106 mm[Hg] 106 mm[Hg] [facility] Body height 65 [in_i] 65 [in_i] NICOL ([facility]) Diastolic blood pressure 70 mm[Hg] 70 mm[Hg] NICOL ([facility]) Body weight 2738.08 [oz_av] 2738.08 [oz_av] ATH CÉSAR ([facility]) Systolic blood pressure 106 mm[Hg] 106 mm[Hg] A [facility] ([facility]) Body height 65 [in_i] 65 [in_i] NICOL ([facility]) Diastolic blood pressure 70 mm[Hg] 70 mm[Hg] NICOL ([facility]) Body weight 2790.08 [oz_av] 2790.08 [oz_av] ATH CÉSAR ([facility]) Systolic blood pressure 107 mm[Hg] 107 mm[Hg] [facility] Body height 65 [in_i] 65 [in_i] NICOL ([facility]) Diastolic blood pressure 74 mm[Hg] 74 mm[Hg] NICOL ([facility]) Body weight 2790.08 [oz_av] 2790.08 [oz_av] ATH CÉSAR ([facility]) Systolic blood pressure 107 mm[Hg] 107 mm[Hg] [facility] Body height 65 [in_i] 65 [in_i] NICOL ([facility]) Diastolic blood pressure 74 mm[Hg] 74 mm[Hg] NICOL ([facility]) Body weight 2790.08 [oz_av] 2790.08 [oz_av] ATH CÉSAR ([facility]) Systolic blood pressure 107 mm[Hg] 107 mm[Hg] [facility] Body height 65 [in_i] 65 [in_i] NICOL ([facility]) Diastolic blood pressure 74 mm[Hg] 74 mm[Hg] NICOL ([facility]) Body weight 2790.08 [oz_av] 2790.08 [oz_av] ATH CÉSAR ([facility]) Systolic blood pressure 107 mm[Hg] 107 mm[Hg] A THENA ([facility]) Body height 65 [in_i] 65 [in_i] NICOL ([facility]) Diastolic blood pressure 74 mm[Hg] 74 mm[Hg] NICOL ([facility]) Body mass index (BMI) [Ratio] 26.2 kg/m2 26.2 k g/m2 MEDENT ([facility]) Body height 65.5 [in_i] 65.5 [in_i] MEDENT ([facility]) 5'5.50" Body weight 160.00 [lb_av] 160.00 [lb_av] MEDEN T ([facility], [facility]) Body temperature 98.5 [degF] 98.5 [degF] MEDENT ([facility], [facility]) Oxygen saturation in Arterial blood by Pulse oximetry 97 % 97 % MEDENT ([facility], [facility]) Respiratory rate 16 /min 16 /min MEDENT ( [facility]) Heart rate 86 /min 86 /min MEDENT ([facility]) Diastolic blood pressure 80 mm[Hg] 80 mm[Hg] MEDENT ([facility], [facility]) Systolic blood pressure 117 mm[Hg] 117 mm[Hg] M EDENT ([facility], [facility]) Body mass index (BMI) [Ratio] 24.9 kg/m2 24.9 k g/m2 MEDENT ([facility], [facility]) Body height 65.5 [in_i] 65.5 [in_i] MEDENT ([facility]) 5'5.50" Body weight 152.00 [lb_av] 152.00 [lb_av] MEDEN T ([facility], [facility]) Body temperature 98.2 [degF] 98.2 [degF] MEDENT ([facility], [facility]) Oxygen saturation in Arterial blood by Pulse oximetry 98 % 98 % MEDENT ([facility]) Respiratory rate 17 /min 17 /min MEDENT ( [facility]) Heart rate 82 /min 82 /min MEDENT ([facility]) Diastolic blood pressure 76 mm[Hg] 76 mm[Hg] MEDENT ([facility]) Systolic blood pressure 113 mm[Hg] 113 mm[Hg] M EDENT ([facility], [facility]) Body weight 145.00 [lb_av] 145.00 [lb_av] MEDEN T ([facility]) Body temperature 97.4 [degF] 97.4 [degF] [facility] ([facility]) Respiratory rate 18 /min 18 /min [facility] ( [facility]) Heart rate 89 /min 89 /min [facility] ([facility]) Diastolic blood pressure 66 mm[Hg] 66 mm[Hg] [facility] Systolic blood pressure 102 mm[Hg] 102 mm[Hg] [facility] ([facility]) Oxygen saturation in Arterial blood by Pulse oximetry 97 % 97 % [facility] Body mass index (BMI) [Ratio] 24.96 kg/m2 24.96 kg/m2 [facility] Body weight 68.04 kg 68.04 kg [facility] Body height 165.1 cm 165.1 cm [facility] Respiratory rate 16 /min 16 /min [facility] Body temperature 36.61 Krysten 36.61 Krysten [facility] Heart rate 83 /min 83 /min [facility] Diastolic blood pressure 81 mm[Hg] 81 mm[Hg] [facility] Systolic blood pressure 122 mm[Hg] 122 mm[Hg] [facility] Patient Treatment Plan of Care Planned Activity Planned Date Details Description Data Source (s) Sumatriptan 50 MG Oral Tablet NICOL ([facility]) Sulfamethoxazole 800 MG / Trimethoprim 160 MG Oral Tablet NICOL ([facility]) quetiapine 400 MG Oral Tablet NICOL ([facility]) Prednisone 20 MG Oral Tablet NICOL ([facility]) Phenazopyridine hydrochloride 200 MG Oral Tablet NICOL ([facility]) Penicillin V Potassium 500 MG Oral Tablet NICOL ([facility]) Naproxen 500 MG Oral Tablet NICOL ([facility]) Mirtazapine 7.5 MG Oral Tablet NICOL ([facility]) Mirtazapine 30 MG Oral Tablet NICOL ([facility]) Metoclopramide 5 MG Oral Tablet NICOL ([facility]) Methocarbamol 750 MG Oral Tablet NICOL ([facility]) [place] Carbonate 450 MG Extended Release Oral Tablet NICOL ([facility]) lidocaine 5 % topical patch NICOL ([facility]) Ketorolac Tromethamine 10 MG Oral Tablet NICOL ([facility]) Ibuprofen 800 MG Oral Tablet NICOL ([facility]) Hydroxyzine Hydrochloride 25 MG Oral Tablet NICOL ([facility]) Acetaminophen 325 MG / Hydrocodone Bitartrate 5 MG Oral Tablet NICOL ([facility]) gabapentin 300 MG Oral Capsule NICOL ([facility]) Fluoxetine 40 MG Oral Capsule NICOL ([facility]) Fluoxetine 20 MG Oral Capsule NICOL ([facility]) Dimenhydrinate 50 MG Chewable Tablet NICOL ([facility]) Doxepin Hydrochloride 50 MG Oral Capsule NICOL ([facility]) Doxepin Hydrochloride 25 MG Oral Capsule NICOL ([facility]) Doxepin Hydrochloride 100 MG Oral Capsule NICOL ([facility]) Dicyclomine Hydrochloride 20 MG Oral Tablet NICOL ([facility]) Diclofenac Potassium 50 MG Oral Tablet NICOL ([facility]) Cyclobenzaprine hydrochloride 10 MG Oral Tablet NICOL ([facility]) Clonidine Hydrochloride 0.1 MG Oral Tablet NICOL ([facility]) Clonazepam 1 MG Oral Tablet NICOL ([facility]) Clonazepam 0.5 MG Disintegrating Oral Tablet NICOL ([facility]) Clindamycin 300 MG Oral Capsule NICOL ([facility]) Cephalexin 500 MG Oral Capsule NICOL ([facility]) benzonatate 200 MG Oral Capsule NICOL ([facility]) Azithromycin 250 MG Oral Tablet NICOL ([facility]) atorvastatin 20 MG Oral Tablet NICOL ([facility]) Amoxicillin 875 MG / Clavulanate 125 MG Oral Tablet NICOL ([facility]) Amoxicillin 500 MG Oral Capsule NICOL ([facility]) albuterol sulfate HFA 90 mcg/actuation aerosol inhaler NICOL ([facility]) Acetaminophen 325 MG Oral Tablet NICOL ([facility]) Acetaminophen 300 MG / Codeine Phosphate 30 MG Oral Tablet NICOL ([facility]) Sulfamethoxazole 800 MG / Trimethoprim 160 MG Oral Tablet NICOL ([facility]) quetiapine 400 MG Oral Tablet NICOL ([facility]) Prednisone 20 MG Oral Tablet NICOL ([facility]) Phenazopyridine hydrochloride 200 MG Oral Tablet NICOL ([facility]) Penicillin V Potassium 500 MG Oral Tablet NICOL ([facility]) Naproxen 500 MG Oral Tablet NICOL ([facility]) Mirtazapine 7.5 MG Oral Tablet NICOL ([facility]) Mirtazapine 30 MG Oral Tablet NICOL ([facility]) Metoclopramide 5 MG Oral Tablet NICOL ([facility]) Methocarbamol 750 MG Oral Tablet NICOL ([facility]) [place] Carbonate 450 MG Extended Release Oral Tablet NICOL ([facility]) lidocaine 5 % topical patch NICOL ([facility]) Ketorolac Tromethamine 10 MG Oral Tablet NICOL ([facility]) Ibuprofen 800 MG Oral Tablet NICOL ([facility]) Hydroxyzine Hydrochloride 25 MG Oral Tablet NICOL ([facility]) Acetaminophen 325 MG / Hydrocodone Bitartrate 5 MG Oral Tablet NICOL ([facility]) gabapentin 600 MG Oral Tablet NICOL ([facility]) gabapentin 300 MG Oral Capsule NICOL ([facility]) Fluoxetine 40 MG Oral Capsule NICOL ([facility]) Fluoxetine 20 MG Oral Capsule NICOL ([facility]) Dimenhydrinate 50 MG Chewable Tablet NICOL ([facility]) Doxepin Hydrochloride 50 MG Oral Capsule NICOL ([facility]) Doxepin Hydrochloride 25 MG Oral Capsule NICOL ([facility]) Doxepin Hydrochloride 100 MG Oral Capsule NICOL ([facility]) Dicyclomine Hydrochloride 20 MG Oral Tablet NICOL ([facility]) Diclofenac Potassium 50 MG Oral Tablet NICOL ([facility]) Cyclobenzaprine hydrochloride 10 MG Oral Tablet NICOL ([facility]) Clonidine Hydrochloride 0.1 MG Oral Tablet NICOL ([facility]) Clonazepam 1 MG Oral Tablet NICOL ([facility]) Clonazepam 0.5 MG Disintegrating Oral Tablet NICOL ([facility]) Clindamycin 300 MG Oral Capsule NICOL ([facility]) Cephalexin 500 MG Oral Capsule NICOL ([facility]) benzonatate 200 MG Oral Capsule NICOL ([facility]) Azithromycin 250 MG Oral Tablet NICOL ([facility]) atorvastatin 20 MG Oral Tablet NICOL ([facility]) Amoxicillin 875 MG / Clavulanate 125 MG Oral Tablet NICOL ([facility]) albuterol sulfate HFA 90 mcg/actuation aerosol inhaler NICOL ([facility]) Acetaminophen 325 MG Oral Tablet NICOL ([facility]) Acetaminophen 300 MG / Codeine Phosphate 30 MG Oral Tablet NICOL ([facility]) Sulfamethoxazole 800 MG / Trimethoprim 160 MG Oral Tablet NICOL ([facility]) quetiapine 400 MG Oral Tablet NICOL ([facility]) Prednisone 20 MG Oral Tablet NICOL ([facility]) Phenazopyridine hydrochloride 200 MG Oral Tablet NICOL ([facility]) Penicillin V Potassium 500 MG Oral Tablet NICOL ([facility]) Naproxen 500 MG Oral Tablet NICOL ([facility]) Mirtazapine 7.5 MG Oral Tablet NICOL ([facility]) Mirtazapine 30 MG Oral Tablet NICOL ([facility]) Metoclopramide 5 MG Oral Tablet NICOL ([facility]) Methocarbamol 750 MG Oral Tablet NICOL ([facility]) [place] Carbonate 450 MG Extended Release Oral Tablet NICOL ([facility]) Ketorolac Tromethamine 10 MG Oral Tablet NICOL ([facility]) Ibuprofen 800 MG Oral Tablet NICOL ([facility]) Acetaminophen 325 MG / Hydrocodone Bitartrate 5 MG Oral Tablet NICOL ([facility]) gabapentin 300 MG Oral Capsule NICOL ([facility]) Fluoxetine 40 MG Oral Capsule NICOL ([facility]) Fluoxetine 20 MG Oral Capsule NICOL ([facility]) Doxepin Hydrochloride 50 MG Oral Capsule NICOL ([facility]) Doxepin Hydrochloride 25 MG Oral Capsule NICOL ([facility]) Doxepin Hydrochloride 100 MG Oral Capsule NICOL ([facility]) Diclofenac Potassium 50 MG Oral Tablet NICOL ([facility]) Cyclobenzaprine hydrochloride 10 MG Oral Tablet NICOL ([facility]) Clonidine Hydrochloride 0.1 MG Oral Tablet NICOL ([facility]) Clonazepam 1 MG Oral Tablet NICOL ([facility]) Clonazepam 0.5 MG Disintegrating Oral Tablet NICOL ([facility]) Clindamycin 300 MG Oral Capsule NICOL ([facility]) Cephalexin 500 MG Oral Capsule NICOL ([facility]) benzonatate 200 MG Oral Capsule NICOL ([facility]) Azithromycin 250 MG Oral Tablet NICOL ([facility]) atorvastatin 20 MG Oral Tablet NICOL ([facility]) Amoxicillin 875 MG / Clavulanate 125 MG Oral Tablet NICOL ([facility]) albuterol sulfate HFA 90 mcg/actuation aerosol inhaler NICOL ([facility]) Acetaminophen 325 MG Oral Tablet NICOL ([facility]) Acetaminophen 300 MG / Codeine Phosphate 30 MG Oral Tablet NICOL ([facility]) Sulfamethoxazole 800 MG / Trimethoprim 160 MG Oral Tablet INCOL ([facility]) quetiapine 400 MG Oral Tablet NICOL ([facility]) Phenazopyridine hydrochloride 200 MG Oral Tablet NICOL ([facility]) Penicillin V Potassium 500 MG Oral Tablet NICOL ([facility]) Naproxen 500 MG Oral Tablet NICOL ([facility]) Mirtazapine 7.5 MG Oral Tablet NICOL ([facility]) Mirtazapine 30 MG Oral Tablet NICOL ([facility]) Metoclopramide 5 MG Oral Tablet NICOL ([facility]) Methocarbamol 750 MG Oral Tablet NICOL ([facility]) [place] Carbonate 450 MG Extended Release Oral Tablet NICOL ([facility]) Ketorolac Tromethamine 10 MG Oral Tablet NICOL ([facility]) Acetaminophen 325 MG / Hydrocodone Bitartrate 5 MG Oral Tablet NICOL ([facility]) gabapentin 300 MG Oral Capsule NICOL ([facility]) Fluoxetine 40 MG Oral Capsule NICOL ([facility]) Fluoxetine 20 MG Oral Capsule NICOL ([facility]) Doxepin Hydrochloride 50 MG Oral Capsule NICOL ([facility]) Doxepin Hydrochloride 25 MG Oral Capsule NICOL ([facility]) Doxepin Hydrochloride 100 MG Oral Capsule NICOL ([facility]) Cyclobenzaprine hydrochloride 10 MG Oral Tablet NICOL ([facility]) Clonidine Hydrochloride 0.1 MG Oral Tablet NICOL ([facility]) Clonazepam 0.5 MG Disintegrating Oral Tablet NICOL ([facility]) Clindamycin 300 MG Oral Capsule NICOL ([facility]) Cephalexin 500 MG Oral Capsule NICOL ([facility]) benzonatate 200 MG Oral Capsule NICOL ([facility]) Azithromycin 250 MG Oral Tablet NICOL ([facility]) atorvastatin 20 MG Oral Tablet NICOL ([facility]) Amoxicillin 875 MG / Clavulanate 125 MG Oral Tablet NICOL ([facility]) albuterol sulfate HFA 90 mcg/actuation aerosol inhaler NICOL ([facility]) Acetaminophen 325 MG Oral Tablet NICOL ([facility]) Acetaminophen 300 MG / Codeine Phosphate 30 MG Oral Tablet NICOL ([facility])
--- OUTSIDE RECORDS SUMMARY | 2020-04-23 20:46 | CCD ---
Author Author [facility] Organization [facility] Address Unknown Phone Unavailable Care Team Providers Care Business Services Specialist Sales Name Role Phone Corina Vanegas MD Unavailable [...] Guilherme, Corina Ruiz MD Unavailable Unavailable Guilherme, Corian Ruiz MD Unavailable Unavailable Guilherme, Corina Ruiz MD Unavailable Unavailable Guilherme, Corina Ruiz MD Unavailable Unavailable Guilherme, Corina Ruiz MD Unavailable Unavailable Guilherme, Croina Ruiz MD Unavailable Unavailable Guilherme, Corina Ruiz [...] Ruiz MD Unavailable Unavailable Keisha King Unavailable [phone] DAINA MILLER Unavailable Unavailable Alvin Allison Unavailable [...] Unavailable PALMER, J JORDAN PA Unavailable Unavailable PAMLER, J JORDAN PA Unavailable Unavailable PALMER, J JORDAN PA Unavailable Unavailable PALMER, J JORDAN PA Unavailable Unavailable PALMER, J JORDAN PA Unavailable Unavailable PALMER, J JORDAN PA Unavailable Unavailable Shah, Joanne HOSPICE CLINICAL SUPERVISOR Unavailable Unavailable Shah, Joanne HOSPICE CLINICAL SUPERVISOR Unavailable Unavailable Shah, Joanne HOSPICE CLINICAL SUPERVISOR Unavailable Unavailable Shah, Joanne HOSPICE CLINICAL SUPERVISOR Unavailable Unavailable Shah, Joanne HOSPICE CLINICAL SUPERVISOR Unavailable Unavailable Shah, Joanne HOSPICE CLINICAL SUPERVISOR Unavailable Unavailable Shah, Joanne HOSPICE CLINICAL SUPERVISOR Unavailable Unavailable Shah, Joanne HOSPICE CLINICAL SUPERVISOR Unavailable Unavailable Shah, Joanne HOSPICE CLINICAL SUPERVISOR Unavailable Unavailable Shah, Joanne HOSPICE CLINICAL SUPERVISOR Unavailable Unavailable Shah, Joanne HOSPICE CLINICAL SUPERVISOR Unavailable Unavailable Stone, Tiera Unavailable BILAL, AHMAD MD Unavailable Unavailable BILAL, AHMANaveed MD Unavailable Unavailable BILAL, AHMAD MD Unavailable Unavailable BILAL, AHMANaveed MD Unavailable Unavailable BILAL, AHMAD MD Unavailable Unavailable BILAL, AHMAD MD Unavailable Unavailable BILAL, AHMAD MD Unavailable Unavailable BILAL, AHMAD MD Unavailable Unavailable BILAL, AHMAD MD Unavailable Unavailable Victorino, Rahel CRATE BUILDER CRATE BUILDER Unavailable Unavailable Victorino, A Rahel CRATE BUILDER Unavailable Unavailable Victorino, A Rahel CRATE BUILDER Unavailable Unavailable Victorino, A Rahel CRATE BUILDER Unavailable Unavailable Victorino, A Rahel CRATE BUILDER Unavailable Unavailable Victorino, A Rahel CRATE BUILDER Unavailable Unavailable Victorino, A Rahel CRATE BUILDER Unavailable Unavailable Victorino, A Rahel CRATE BUILDER Unavailable Unavailable Victorino, A Rahel CRATE BUILDER Unavailable Unavailable Victorino, A Rahel CRATE BUILDER Unavailable Unavailable Victorino, A Rahel CRATE BUILDER Unavailable Unavailable Victorino, A Rahel CRATE BUILDER Unavailable Unavailable Victorino, A Rahel CRATE BUILDER Unavailable Unavailable Victorino, A Rahel CRATE BUILDER Unavailable Unavailable Victorino, A Rahel CRATE BUILDER Unavailable Unavailable Victorino, A Rahel CRATE BUILDER Unavailable Unavailable Victorino, A Rahel CRATE BUILDER Unavailable Unavailable Victorino, A Rahel CRATE BUILDER Unavailable Unavailable Victorino, A Rahel CRATE BUILDER Unavailable Unavailable Victorino, A Rahel CRATE BUILDER Unavailable Unavailable Victorino, A Rahel CRATE BUILDER Unavailable Unavailable Victorino, A Rahel CRATE BUILDER Unavailable Unavailable Victorino, A Rahel CRATE BUILDER Unavailable Unavailable Victorino, A Rahel CRATE BUILDER Unavailable Unavailable Victorino, A Rahel CRATE BUILDER Unavailable Unavailable Victorino, A Rahel CRATE BUILDER Unavailable Unavailable Victorino, A Rahel CRATE BUILDER Unavailable Unavailable Victorino, A Rahel CRATE BUILDER Unavailable Unavailable Victorino, A Rahel CRATE BUILDER Unavailable Unavailable LETTIERE, A ARA PA Unavailable [...] is protected by Article 27-F of the [facility] Public Health law. If you continue you may have access to information: Regarding HIV / AIDS; Provided by facilities licensed or operated by the [facility] Office of Mental Health; or Provided by the [facility] Office for People With Developmental Disabilities. If such information is present, then the following [facility] mandated warning applies: This information has been [...] law may result in a fine or penitentiary sentence or both. A general authorization for the release of medical or other information is NOT sufficient authorization for further disc losure. Allergies and Adverse Reactions Type Description Substance Reaction Status Data Source(s ) Allergy to substance Allergy to substance Allergy to substance [facility] ([facility]) Family History Family Member Name Family Member Gender Family Member Status Date o f Status Description Data Source(s) Unknown Unknown Problem [facility] Unknown Unknown Problem [facility] Encounters Encounter Providers Location Date Indications Data Source(s ) Keisha King MD: [address] [place] [address], Ph. Attender: Keisha King [facility] Medical 04/23/2020 12:00:00 AM EST [facility] ([facility]) Torri Allison PA-C: [address] [place] [address], Ph. Attender: Torri ROSAS [facility] Medical 03/13/2020 12:00:00 AM EST [facility] ([facility]) Torri Allison PA-C: [address], [place] [address], Ph. Attender: Torri ROSAS [facility] Medical 03/13/2020 12:00:00 AM EST N[facility] ([facility]) Torri Allison PA-C: [address], [place] [address], Ph. Attender: Torri ROSAS [facility] Medical 03/02/2020 12:00:00 AM EST [facility] ([facility]) Torri Allison PA-C: [address], [place] [address], Ph. Attender: Torri ROSAS [facility] Medical 03/02/2020 12:00:00 AM EST [facility] ([facility]) Torri Allison PA-C: [address], [place] [address], Ph. Attender: Torri ROSAS [facility] Medical 03/02/2020 12:00:00 AM EST N[facility] ([facility]) Torri Allison PA-C: [address], [place] [address], Ph. Attender: Torri ROSAS [facility] Medical 02/23/2020 12:00:00 AM EST N[facility] ([facility]) Torri Allison PA-C: [address], [place] [address], Ph. Attender: Torri ROSAS [facility] Medical 02/23/2020 12:00:00 AM EST [facility] ([facility]) Torri Allison PA-C: [address], [place] [address], Ph. Attender: Torri ROSAS [facility] Medical 02/23/2020 12:00:00 AM EST [facility] ([facility]) Torri Allison PA-C: [address] [place] [address], Ph. Attender: Torri ROSAS [facility] Medical 02/23/2020 12:00:00 AM EST [facility] ([facility]) Attender: Tiera Damon 01/26/2020 12:00:[address] [facility] ([facility]) Crisis Intervention - Brief Attender: Tiera Damon Pepefranco [facility] 01/25/2020 12:00:00 PM EST - 01/25/2020 12:00:00 PM EST [facility] ([facility]) Outpatient Attender: Rahel CLARK 12/21/2019 09:5 5:02 PM EDT [facility] Outpatient Attender: SUSANA CLARK 12/21/2019 10:25:01 A M EDT [facility] Outpatient Attender: Rahel CLARK 11/07/2019 08:1 3:01 AM EDT [facility] Outpatient Attender: Rahel CLARK 09/27/2019 04:2 7:01 PM EDT [facility] Outpatient Attender: SUSANA CLARK 09/21/2019 05:00:06 P M EDT [facility] Outpatient Attender: Rahel CLARK 09/21/2019 05:0 0:05 PM EDT [facility] Outpatient Attender: SUSANA CLARK 09/21/2019 05:00:02 P M EDT [facility] Outpatient Attender: SUSANA CLARK 09/20/2019 10:15:00 A M EDT [facility] Outpatient Attender: SUSANA CLARK 09/20/2019 10:14:00 A M EDT [facility] Outpatient Attender: SUSANA CLARK 09/20/2019 10:13:01 A M EDT [facility] Outpatient Attender: aRhel Gleason SUSANA FP 09/18/2019 11:5 5:02 PM EDT [facility] Outpatient Attender: SUSANA Victorino SUSANA FP 09/18/2019 11:54:59 P M EDT [facility] Outpatient Attender: SUSANA Victorino SUSANA FP 09/18/2019 02:30:02 P M EDT [facility] Outpatient Attender: SUSANA Victorino SUSANA FP 09/16/2019 09:25:00 A M EDT [facility] Outpatient Attender: SUSANA Victorino SUSANA FP 09/15/2019 07:58:01 A M EDT [facility] Outpatient Attender: SUSANA MEZA FP 09/14/2019 08:37:00 A M EDT [facility] Outpatient Attender: SUSANA Victorino SUSANA FP 09/14/2019 08:36:00 A M EDT [facility] Outpatient Attender: SUSANA MEZA FP 09/14/2019 08:17:01 A M EDT [facility] Outpatient Attender: SUSANA Victorino CRATE BUILDER FP 09/13/2019 04:10:00 P M EDT [facility] Outpatient Attender: SUSANA MEZA FP 09/13/2019 02:26:01 P M EDT [facility] Outpatient Attender: SUSANA Victorino SUSANA FP 09/10/2019 12:02:09 A M EDT [facility] Outpatient Attender: SUSANA Victorino SUSANA FP 09/09/2019 12:42:01 P M EDT [facility] Outpatient Attender: Joanne emmanuel 08/24/2019 11:30:00 AM EDT [facility] ([facility]) Outpatient Attender: ARA magdaleno 07/20/2019 01:45:00 PM EDT [facility] ([facility]) Halfway - Case Management Attender: Tiera Damon [facility] ail 05/23/2019 08:30:00 AM EST - 05/23/2019 08:30:00 AM EST [facility] ([facility]) Attender: Tiera Damon 05/23/2019 12:00:[address] [facility] ([facility]) Brief Individual Psychotherapy - 20 min Attender: Tiera Karon mata [facility] 05/11/2019 01:45:00 AM EST - 05/11/2019 01:45:00 AM EST [facility] ([facility]) Attender: Tiera Nelson 05/11/2019 12:00:[address] [facility] ([facility]) Emergency Attender: TAWNYA JEFFERSON MD [id number] 06:52:00 PM EST - 04/20/2019 09:01:00 PM EST [facility] Patient discharged. Outpatient Attender: DAINA MILLERConsultant: Sara vee MD 03/11/2019 11:01:00 AM EST - 03/11/2019 11:01:00 AM [facility] Outpatient Attender: JORDAN PALMER PAConsultant: Sara villeda MD 01/28/2019 03:34:00 PM EST - 01/28/2019 03:34:00 PM [facility] Medications Medication Brand Name Start Date Product Form Dose Route Admi nistrative Instructions Pharmacy Instructions Status Indications Reaction Description Data Source(s) NITROFURANTOIN, MACROCRYSTALS 25 MG / Ni trofurantoin, Monohydrate 75 MG Oral Capsule [Macrobid] Macrobid 02/07/2020 12:00:00 AM EST ORAL active [facility]) Fluoxetine 40 MG Oral Capsule Fluoxetine HCL 01/31/2020 12:00:[address] ORAL completed [facility] ([facility]) Clonidine Hydrochloride 0.1 MG Oral Tablet Clonidine HCL 01/31/2020 12:00:00 AM EST ORAL active [facility] ([facility]) Doxepin Hydrochloride 100 MG Oral Capsule Doxepin HCL 01/31/2020 12:00:00 AM EST completed [facility] ([facility]) quetiapine 50 MG Oral Tablet Quetiapine Fumarate 01/26/2020 12:00:00 AM EST ORAL active [facility] ([facility]) quetiapine 200 MG Oral Tablet Quetiapine Fumarate 01/26/2020 12:00: 00 AM EST ORAL active [facility] ([facility]) Mirtazapine 15 MG Oral Tablet Mirtazapine 01/26/2020 12:00:00 AM EST ORAL active [facility] ([facility]) Dicyclomine Hydrochloride 20 MG Oral Tablet Dicyclomine HCL 08/24/2019 12:00:00 AM EDT ORAL active [facility] ([facility]) Cyclobenzaprine hydrochloride 10 MG Oral Tablet Cyclobenzapr ine HCL 08/24/2019 12:00:00 AM EDT ORAL active M [facility] ([facility]) Prednisone 20 MG Oral Tablet Prednisone 08/24/2019 12:00:00 AM EDT active [facility] ([facility]) Sulfamethoxazole 800 MG / Trimethoprim 160 MG Oral Tablet [B actrim] Bactrim DS 07/22/2019 12:00:00 AM EDT ORAL completed [facility] ([facility]) Phenazopyridine hydrochloride 200 MG Delayed Release O ral Tablet Phenazopyridine HCL 07/22/2019 12:00:00 AM EDT ORAL completed [facility] ([facility]) Fluoxetine 40 MG Oral Capsule fluoxetine 40 mg capsule fluox etine 40 mg capsule completed fluoxetine 40 MG Oral Capsule [facility]) quetiapine 400 MG Oral Tablet quetiapine 400 mg tablet queti apine 400 mg tablet completed quetiapine 400 MG Oral Tablet [facility]) Cephalexin 500 MG Oral Capsule cephalexin 500 mg capsu le cephalexin 500 mg capsule completed cephalexin 500 MG Oral Capsule [facility] ([facility]) Cyclobenzaprine hydrochloride 10 MG Oral Tablet cyclob enzaprine 10 mg tablet cyclobenzaprine 10 mg tablet completed cyclobenzaprine hydrochloride 10 MG Oral Tablet [facility] ([facility]) Clonazepam 1 MG Oral Tablet clonazepam 1 mg tablet clonazepam 1 mg ta blet completed clonazepam 1 MG Oral Tablet [facility] ([facility]) Doxepin Hydrochloride 25 MG Oral Capsule doxepin 25 mg capsule doxepin 25 mg capsule completed doxepin hydroc hloride 25 [facility] Clindamycin 300 MG Oral Capsule clindamycin HCl 300 mg capsule clindamycin HCl 300 mg capsule completed clindam ycin 300 MG Oral Capsule [facility] ([facility]) Acetaminophen 300 MG / Codeine Phosphate 30 MG Oral Tablet acetaminophen 300 mg- codeine 30 mg tablet acetaminophen 300 mg-codeine 30 mg tablet completed acetaminophen 300 MG / codeine p hosphate 30 MG Oral Tablet N[facility] ([facility]) Doxepin Hydrochloride 100 MG Oral Capsule doxepin 100 mg capsule doxepin 100 mg capsule completed doxepin hydroc hloride 100 MG Oral Capsule [facility] ([facility]) Phenazopyridine hydrochloride 200 MG Oral Tablet phena zopyridine 200 mg tablet phenazopyridine 200 mg tablet complete d phenazopyridine hydrochloride 200 MG Oral Tablet N[facility]OL ([facility]) Acetaminophen 325 MG / Hydrocodone Kala trate 5 MG Oral Tablet hydrocodone 5 mg- acetaminophen 325 mg tablet hydrocodone 5 mg-acetaminophen 325 mg tablet completed acetaminophen 325 MG / hydrocodone bitartrate 5 MG Oral Tablet [facility] ([facility]) Ketorolac Tromethamine 10 MG Oral Tablet ketorolac 10 mg tablet ketorolac 10 mg tablet completed ketorolac trome thamine 10 MG Oral Tablet [facility] ([facility]) Mirtazapine 7.5 MG Oral Tablet mirtazapine 7.5 mg tabl et mirtazapine 7.5 mg tablet completed mirtazapine 7.5 MG Oral Tablet [facility] ([facility]) atorvastatin 20 MG Oral Tablet atorvasta tin 20 mg tablet TAKE 1 TABLET BY MOUTH DAILY atorvastatin 20 mg tablet TAKE 1 TABLET BY MOUTH DAILY completed atorvastatin 20 MG Oral Tablet A THENA ([facility]) Doxepin Hydrochloride 100 MG Oral Capsule doxepin 100 mg capsule doxepin 100 mg capsule completed doxepin hydroc hloride 100 MG Oral Capsule [facility] ([facility]) Ibuprofen 800 MG Oral Tablet ibuprofen 800 mg tablet ibuprofen 8 00 mg tablet completed ibuprofen 800 MG Oral Tablet [facility] ([facility]) Phenazopyridine hydrochloride 200 MG Oral Tablet phena zopyridine 200 mg tablet phenazopyridine 200 mg tablet complete d phenazopyridine hydrochloride 200 MG Oral Tablet [facility] ([facility]) Acetaminophen 325 MG Oral Tablet acetami nophen 325 mg tablet TK 2 TS PO Q 8 H PRN FOR PAIN/FEVER acetaminophen 325 mg tablet TK 2 TS PO Q 8 H PRN FOR PAIN/FEVER completed acetaminoph en 325 MG Oral Tablet [facility] ([facility]) Metoclopramide 5 MG Oral Tablet metoclopramide 5 mg ta blet metoclopramide 5 mg tablet completed metoclopramide 5 MG Oral Tablet [facility] ([facility]) Phenazopyridine hydrochloride 200 MG Oral Tablet phena zopyridine 200 mg tablet phenazopyridine 200 mg tablet complete d phenazopyridine hydrochloride 200 MG Oral Tablet [facility] ([facility]) gabapentin 300 MG Oral Capsule gabapentin 300 mg capsu le gabapentin 300 mg capsule completed gabapentin 300 MG Oral Capsule [facility] ([facility]) Doxepin Hydrochloride 50 MG Oral Capsule doxepin 50 mg capsule doxepin 50 mg capsule completed doxepin hydroc hloride 50 MG Oral Capsule [facility] ([facility]) Diclofenac Potassium 50 MG Oral Tablet diclofenac pota ssium 50 mg tablet diclofenac potassium 50 mg tablet comp leted diclofenac potassium 50 MG Oral Tablet [facility] ([facility]) atorvastatin 20 MG Oral Tablet atorvasta tin 20 mg tablet TAKE 1 TABLET BY MOUTH DAILY atorvastatin 20 mg tablet TAKE 1 TABLET BY MOUTH DAILY completed atorvastatin 20 MG Oral Tablet A THEN ([facility]) albuterol sulfate HFA 90 mcg/actuation aerosol inhaler [id number] completed [id number] 200 ACTUAT albuterol 0.09 MG/ACTUAT Metered Dose Inhaler [facility] ([facility]) Fluoxetine 20 MG Oral Capsule fluoxetine 20 mg capsule fluox etine 20 mg capsule completed fluoxetine 20 MG Oral Capsule [facility] ([facility]) Dimenhydrinate 50 MG Chewable Tablet Ailyn mamine 50 mg chewable tablet Chew 1 tablet every 6 hours by oral route. Dramamine 50 mg chewable tablet Chew 1 tablet every 6 hours by oral route. 1 co mpleted dimenhydrinate 50 MG Chewable Tablet NIC[facility] ([facility]) Diclofenac Potassium 50 MG Oral Tablet diclofenac pota ssium 50 mg tablet diclofenac potassium 50 mg tablet comp leted diclofenac potassium 50 MG Oral Tablet [facility] ([facility]) Amoxicillin 875 MG / Clavulanate 125 MG Oral Tablet amoxicillin 875 mg-potassium clavulanate 125 mg tablet amoxicillin 875 mg-potassium clavulanate 125 mg tablet completed amoxici llin 875 MG / clavulanate 125 MG Oral Tablet [facility] ([facility]) lidocaine 5 % topical patch [id number] com pleted lidocaine 0.05 MG/MG Medicated Patch [facility] ([facility]) Clonidine Hydrochloride 0.1 MG Oral Tablet clonidine H Cl 0.1 mg tablet clonidine HCl 0.1 mg tablet completed clonidine hydrochloride 0.1 MG Oral Tablet [facility] ([facility]) Ibuprofen 800 MG Oral Tablet ibuprofen 800 mg tablet ibuprofen 8 00 mg tablet completed ibuprofen 800 MG Oral Tablet [facility] ([facility]) Doxepin Hydrochloride 25 MG Oral Capsule doxepin 25 mg capsule doxepin 25 mg capsule completed doxepin hydroc hloride 25 MG Oral Capsule [facility] ([facility]) Clonidine Hydrochloride 0.1 MG Oral Tablet clonidine H Cl 0.1 mg tablet clonidine HCl 0.1 mg tablet completed clonidine hydrochloride 0.1 MG Oral Tablet [facility] ([facility]) Doxepin Hydrochloride 100 MG Oral Capsule doxepin 100 mg capsule doxepin 100 mg capsule completed doxepin hydroc hloride 100 MG Oral Capsule [facility] ([facility]) Acetaminophen 325 MG Oral Tablet acetami nophen 325 mg tablet TK 2 TS PO Q 8 H PRN FOR PAIN/FEVER acetaminophen 325 mg tablet TK 2 TS PO Q 8 H PRN FOR PAIN/FEVER completed acetaminoph en 325 MG Oral Tablet [facility] ([facility]) Fluoxetine 20 MG Oral Capsule fluoxetine 20 mg capsule fluox etine 20 mg capsule completed fluoxetine 20 MG Oral Capsule [facility] ([facility]) Doxepin Hydrochloride 100 MG Oral Capsule doxepin 100 mg capsule doxepin 100 mg capsule completed doxepin hydroc hloride 100 MG Oral Capsule [facility] ([facility]) Acetaminophen 325 MG Oral Tablet acetami nophen 325 mg tablet TK 2 TS PO Q 8 H PRN FOR PAIN/FEVER acetaminophen 325 mg tablet TK 2 TS PO Q 8 H PRN FOR PAIN/FEVER completed acetaminoph en 325 MG Oral Tablet [facility] ([facility]) Methocarbamol 750 MG Oral Tablet methocarbamol 750 mg tablet methocarbamol 750 mg tablet completed methocarbamo l 750 MG Oral Tablet [facility] ([facility]) Clonazepam 0.5 MG Disintegrating Oral Ta blet clonazepam 0.5 mg disintegrating tablet clonazepam 0.5 mg disintegrating tablet completed clonazepam 0.5 MG Disintegrating Oral Tablet [facility] ([facility]) Dimenhydrinate 50 MG Chewable Tablet Ailyn mamine 50 mg chewable tablet Chew 1 tablet every 6 hours by oral route. Dramamine 50 mg chewable tablet Chew 1 tablet every 6 hours by oral route. 1 co mpleted dimenhydrinate 50 MG Chewable Tablet [facility] ([facility]) Mirtazapine 30 MG Oral Tablet mirtazapine 30 mg tablet jody zapine 30 mg tablet completed mirtazapine 30 MG Oral Tablet [facility] ([facility]) Clonazepam 0.5 MG Disintegrating Oral Ta blet clonazepam 0.5 mg disintegrating tablet clonazepam 0.5 mg disintegrating tablet completed clonazepam 0.5 MG Disintegrating Oral Tablet [facility] ([facility]) Fluoxetine 20 MG Oral Capsule fluoxetine 20 mg capsule fluox etine 20 mg capsule completed fluoxetine 20 MG Oral Capsule [facility] ([facility]) Hydroxyzine Hydrochloride 25 MG Oral Tab let hydroxyzine HCl 25 mg tablet TK 1 T PO ONCE DAILY hydroxyzine HCl 25 mg tablet TK 1 T PO ONCE DAILY completed hydroxyzine hydrochloride 25 MG Oral Tablet [facility] ([facility]) Doxepin Hydrochloride 25 MG Oral Capsule doxepin 25 mg capsule doxepin 25 mg capsule completed doxepin hydroc hloride 25 MG Oral Capsule [facility] ([facility]) albuterol sulfate HFA 90 mcg/actuation aerosol inhaler [id number] completed [id number] 200 ACTUAT albuterol 0.09 MG/ACTUAT Metered Dose Inhaler NICOL ([facility]) Prednisone 20 MG Oral Tablet prednisone 20 mg tablet T K 2 TS PO QD FOR 5 DAYS prednisone 20 mg tablet TK 2 TS PO QD FOR 5 DAYS completed prednisone 20 MG Oral Tablet [facility] ([facility]) Ketorolac Tromethamine 10 MG Oral Tablet ketorolac 10 mg tablet ketorolac 10 mg tablet completed ketorolac trome thamine 10 MG Oral Tablet [facility] ([facility]) Cephalexin 500 MG Oral Capsule cephalexin 500 mg capsu le cephalexin 500 mg capsule completed cephalexin 500 MG Oral Capsule [facility] ([facility]) Prednisone 20 MG Oral Tablet prednisone 20 mg tablet T K 2 TS PO QD FOR 5 DAYS prednisone 20 mg tablet TK 2 TS PO QD FOR 5 DAYS completed prednisone 20 MG Oral Tablet [facility] ([facility]) Prednisone 20 MG Oral Tablet prednisone 20 mg tablet T K 2 TS PO QD FOR 5 DAYS prednisone 20 mg tablet TK 2 TS PO QD FOR 5 DAYS completed prednisone 20 MG Oral Tablet [facility] ([facility]) Ibuprofen 800 MG Oral Tablet ibuprofen 800 mg tablet ibuprofen 8 00 mg tablet completed ibuprofen 800 MG Oral Tablet [facility] ([facility]) Sulfamethoxazole 800 MG / Trimethoprim 1 60 MG Oral Tablet sulfamethoxazole 800 mg-trimethoprim 160 mg tablet sulfamethoxazole 800 mg-trimethoprim 160 mg tablet completed sulfame thoxazole 800 MG / trimethoprim 160 MG Oral Tablet [facility] ([facility]) Penicillin V Potassium 500 MG Oral Tablet penicillin V potassium 500 mg tablet penicillin V potassium 500 mg tablet c ompleted penicillin V potassium 500 MG Oral Tablet [facility] ([facility]) Amoxicillin 875 MG / Clavulanate 125 MG Oral Tablet amoxicillin 875 mg-potassium clavulanate 125 mg tablet amoxicillin 875 mg-potassium clavulanate 125 mg tablet completed amoxici llin 875 MG / clavulanate 125 MG Oral Tablet [facility] ([facility]) Mirtazapine 30 MG Oral Tablet mirtazapine 30 mg tablet jody zapine 30 mg tablet completed mirtazapine 30 MG Oral Tablet [facility] ([facility]) Naproxen 500 MG Oral Tablet naproxen 500 mg tablet naproxen 500 mg ta blet completed naproxen 500 MG Oral Tablet [facility] ([facility]) Penicillin V Potassium 500 MG Oral Tablet penicillin V potassium 500 mg tablet penicillin V potassium 500 mg tablet c ompleted penicillin V potassium 500 MG Oral Tablet [facility] ([facility]) Fluoxetine 20 MG Oral Capsule fluoxetine 20 mg capsule fluox etine 20 mg capsule completed fluoxetine 20 MG Oral Capsule NICOL ([facility]) Cephalexin 500 MG Oral Capsule cephalexin 500 mg capsu le cephalexin 500 mg capsule completed cephalexin 500 MG Oral Capsule NICOL ([facility]) Hydroxyzine Hydrochloride 25 MG Oral Tab let hydroxyzine HCl 25 mg tablet TK 1 T PO ONCE DAILY hydroxyzine HCl 25 mg tablet TK 1 T PO ONCE DAILY completed hydroxyzine hydrochloride 25 MG Oral Tablet NICOL ([facility]) Azithromycin 250 MG Oral Tablet azithromycin 250 mg ta blet azithromycin 250 mg tablet completed azithromycin 25 0 MG Oral Tablet BERTRAM ([facility]) Acetaminophen 300 MG / Codeine Phosphate 30 MG Oral Tablet acetaminophen 300 mg- codeine 30 mg tablet acetaminophen 300 mg-codeine 30 mg tablet completed acetaminophen 300 MG / codeine p hosphate 30 MG Oral Tablet [facility]AM ([facility]) albuterol sulfate HFA 90 mcg/actuation aerosol inhaler [id number] completed [id number] 200 ACTUAT albuterol 0.09 MG/ACTUAT Metered Dose Inhaler BERTRAM ([facility]) Doxepin Hydrochloride 50 MG Oral Capsule doxepin 50 mg capsule doxepin 50 mg capsule completed doxepin hydroc hloride 50 MG Oral Capsule [facility] ([facility]) Mirtazapine 30 MG Oral Tablet mirtazapine 30 mg tablet jody zapine 30 mg tablet completed mirtazapine 30 MG Oral Tablet [facility] ([facility]) quetiapine 400 MG Oral Tablet quetiapine 400 mg tablet queti apine 400 mg tablet completed quetiapine 400 MG Oral Tablet [facility] ([facility]) [place] Carbonate 450 MG Extended Releas e Oral Tablet lithium carbonate ER 450 mg tablet,extended release lithium carbonate ER 450 mg tablet,extended release completed lithium carbon ate 450 MG Extended Release Oral Tablet [facility]AM ([facility]) Sulfamethoxazole 800 MG / Trimethoprim 1 60 MG Oral Tablet sulfamethoxazole 800 mg-trimethoprim 160 mg tablet sulfamethoxazole 800 mg-trimethoprim 160 mg tablet completed sulfame thoxazole 800 MG / trimethoprim 160 MG Oral Tablet [facility]AM ([facility]) Mirtazapine 7.5 MG Oral Tablet mirtazapine 7.5 mg tabl et mirtazapine 7.5 mg tablet completed mirtazapine 7.5 MG Oral Tablet [facility] ([facility]) gabapentin 300 MG Oral Capsule gabapentin 300 mg capsu le gabapentin 300 mg capsule completed gabapentin 300 MG Oral Capsule [facility] ([facility]) Mirtazapine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 saturation in Arterial blood by Pulse oximetry 97 % 97 % [facility] Body mass index (BMI) [Ratio] 24.96 kg/m2 24.96 kg/m2 [facility] Body weight 68.04 kg 68.04 kg [facility] Body height 165.1 cm 165.1 cm [facility] Respiratory rate 16 /min 16 /min [facility] Body temperature 36.61 Krysten 36.61 Krysten [facility] Heart rate 83 /min 83 /min [facility] Diastolic blood pressure 81 mm[Hg] 81 mm[Hg] [facility] Systolic blood pressure 122 mm[Hg] 122 mm[Hg] [facility] Patient Treatment Plan of Care Planned Activity Planned Date Details Description Data Source (s) Sumatriptan 50 MG Oral Tablet NICOL ([facility]) Sulfamethoxazole 800 MG / Trimethoprim 160 MG Oral Tablet NICOL ([facility]) quetiapine 400 MG Oral Tablet NICOL ([facility]) Prednisone 20 MG Oral Tablet NICOL ([facility]) Phenazopyridine hydrochloride 200 MG Oral Tablet NICOL ([facility]) Penicillin V Potassium 500 MG Oral Tablet NICOL ([facility]) Naproxen 500 MG Oral Tablet NICOL ([facility]) Mirtazapine 7.5 MG Oral Tablet NICOL ([facility]) Mirtazapine 30 MG Oral Tablet NICOL ([facility]) Metoclopramide 5 MG Oral Tablet NICOL ([facility]) Methocarbamol 750 MG Oral Tablet NICOL ([facility]) [place] Carbonate 450 MG Extended Release Oral Tablet NICOL ([facility]) lidocaine 5 % topical patch NICOL ([facility]) Ketorolac Tromethamine 10 MG Oral Tablet NICOL ([facility]) Ibuprofen 800 MG Oral Tablet NICOL ([facility]) Hydroxyzine Hydrochloride 25 MG Oral Tablet NICOL ([facility]) Acetaminophen 325 MG / Hydrocodone Bitartrate 5 MG Oral Tablet NICOL ([facility]) gabapentin 300 MG Oral Capsule NICOL ([facility]) Fluoxetine 40 MG Oral Capsule NICOL ([facility]) Fluoxetine 20 MG Oral Capsule NICOL ([facility]) Dimenhydrinate 50 MG Chewable Tablet NICOL ([facility]) Doxepin Hydrochloride 50 MG Oral Capsule NICOL ([facility]) Doxepin Hydrochloride 25 MG Oral Capsule NICOL ([facility]) Doxepin Hydrochloride 100 MG Oral Capsule NICOL ([facility]) Dicyclomine Hydrochloride 20 MG Oral Tablet NICOL ([facility]) Diclofenac Potassium 50 MG Oral Tablet NICOL ([facility]) Cyclobenzaprine hydrochloride 10 MG Oral Tablet NICOL ([facility]) Clonidine Hydrochloride 0.1 MG Oral Tablet NICOL ([facility]) Clonazepam 1 MG Oral Tablet NICOL ([facility]) Clonazepam 0.5 MG Disintegrating Oral Tablet NICOL ([facility]) Clindamycin 300 MG Oral Capsule NICOL ([facility]) Cephalexin 500 MG Oral Capsule NICOL ([facility]) benzonatate 200 MG Oral Capsule NICOL ([facility]) Azithromycin 250 MG Oral Tablet NICOL ([facility]) atorvastatin 20 MG Oral Tablet NICOL ([facility]) Amoxicillin 875 MG / Clavulanate 125 MG Oral Tablet NICOL ([facility]) Amoxicillin 500 MG Oral Capsule NICOL ([facility]) albuterol sulfate HFA 90 mcg/actuation aerosol inhaler NICOL ([facility]) Acetaminophen 325 MG Oral Tablet NICOL ([facility]) Acetaminophen 300 MG / Codeine Phosphate 30 MG Oral Tablet NICOL ([facility]) Sulfamethoxazole 800 MG / Trimethoprim 160 MG Oral Tablet NICOL ([facility]) quetiapine 400 MG Oral Tablet NICOL ([facility]) Prednisone 20 MG Oral Tablet NICOL ([facility]) Phenazopyridine hydrochloride 200 MG Oral Tablet NICOL ([facility]) Penicillin V Potassium 500 MG Oral Tablet NICOL ([facility]) Naproxen 500 MG Oral Tablet NICOL ([facility]) Mirtazapine 7.5 MG Oral Tablet NICOL ([facility]) Mirtazapine 30 MG Oral Tablet NICOL ([facility]) Metoclopramide 5 MG Oral Tablet NICOL ([facility]) Methocarbamol 750 MG Oral Tablet NICOL ([facility]) [place] Carbonate 450 MG Extended Release Oral Tablet NICOL ([facility]) lidocaine 5 % topical patch NICOL ([facility]) Ketorolac Tromethamine 10 MG Oral Tablet NICOL ([facility]) Ibuprofen 800 MG Oral Tablet NICOL ([facility]) Hydroxyzine Hydrochloride 25 MG Oral Tablet NICOL ([facility]) Acetaminophen 325 MG / Hydrocodone Bitartrate 5 MG Oral Tablet NICOL ([facility]) gabapentin 600 MG Oral Tablet NICOL ([facility]) gabapentin 300 MG Oral Capsule NICOL ([facility]) Fluoxetine 40 MG Oral Capsule NICOL ([facility]) Fluoxetine 20 MG Oral Capsule NICOL ([facility]) Dimenhydrinate 50 MG Chewable Tablet NICOL ([facility]) Doxepin Hydrochloride 50 MG Oral Capsule NICOL ([facility]) Doxepin Hydrochloride 25 MG Oral Capsule NICOL ([facility]) Doxepin Hydrochloride 100 MG Oral Capsule NICOL ([facility]) Dicyclomine Hydrochloride 20 MG Oral Tablet NICOL ([facility]) Diclofenac Potassium 50 MG Oral Tablet NICOL ([facility]) Cyclobenzaprine hydrochloride 10 MG Oral Tablet NICOL ([facility]) Clonidine Hydrochloride 0.1 MG Oral Tablet NICOL ([facility]) Clonazepam 1 MG Oral Tablet NICOL ([facility]) Clonazepam 0.5 MG Disintegrating Oral Tablet NICOL ([facility]) Clindamycin 300 MG Oral Capsule NICOL ([facility]) Cephalexin 500 MG Oral Capsule NICOL ([facility]) benzonatate 200 MG Oral Capsule NICOL ([facility]) Azithromycin 250 MG Oral Tablet NICOL ([facility]) atorvastatin 20 MG Oral Tablet NICOL ([facility]) Amoxicillin 875 MG / Clavulanate 125 MG Oral Tablet NICOL ([facility]) albuterol sulfate HFA 90 mcg/actuation aerosol inhaler NICOL ([facility]) Acetaminophen 325 MG Oral Tablet NICOL ([facility]) Acetaminophen 300 MG / Codeine Phosphate 30 MG Oral Tablet NICOL ([facility]) Sulfamethoxazole 800 MG / Trimethoprim 160 MG Oral Tablet NICOL ([facility]) quetiapine 400 MG Oral Tablet NICOL ([facility]) Prednisone 20 MG Oral Tablet NICOL ([facility]) Phenazopyridine hydrochloride 200 MG Oral Tablet NICOL ([facility]) Penicillin V Potassium 500 MG Oral Tablet NICOL ([facility]) Naproxen 500 MG Oral Tablet NIOCL ([facility]) Mirtazapine 7.5 MG Oral Tablet NICOL ([facility]) Mirtazapine 30 MG Oral Tablet NICOL ([facility]) Metoclopramide 5 MG Oral Tablet NICOL ([facility]) Methocarbamol 750 MG Oral Tablet NICOL ([facility]) [place] Carbonate 450 MG Extended Release Oral Tablet NICOL ([facility]) Ketorolac Tromethamine 10 MG Oral Tablet NICOL ([facility]) Ibuprofen 800 MG Oral Tablet NICOL ([facility]) Acetaminophen 325 MG / Hydrocodone Bitartrate 5 MG Oral Tablet NICOL ([facility]) gabapentin 300 MG Oral Capsule NICOL ([facility]) Fluoxetine 40 MG Oral Capsule NICOL ([facility]) Fluoxetine 20 MG Oral Capsule NICOL ([facility]) Doxepin Hydrochloride 50 MG Oral Capsule NICOL ([facility]) Doxepin Hydrochloride 25 MG Oral Capsule NICOL ([facility]) Doxepin Hydrochloride 100 MG Oral Capsule NICOL ([facility]) Diclofenac Potassium 50 MG Oral Tablet NICOL ([facility]) Cyclobenzaprine hydrochloride 10 MG Oral Tablet NICOL ([facility]) Clonidine Hydrochloride 0.1 MG Oral Tablet NICOL ([facility]) Clonazepam 1 MG Oral Tablet NICOL ([facility]) Clonazepam 0.5 MG Disintegrating Oral Tablet NICOL ([facility]) Clindamycin 300 MG Oral Capsule NICOL ([facility]) Cephalexin 500 MG Oral Capsule NICOL ([facility]) benzonatate 200 MG Oral Capsule NICOL ([facility]) Azithromycin 250 MG Oral Tablet NICOL ([facility]) atorvastatin 20 MG Oral Tablet NICOL ([facility]) Amoxicillin 875 MG / Clavulanate 125 MG Oral Tablet NICOL ([facility]) albuterol sulfate HFA 90 mcg/actuation aerosol inhaler NICOL ([facility]) Acetaminophen 325 MG Oral Tablet NICOL ([facility]) Acetaminophen 300 MG / Codeine Phosphate 30 MG Oral Tablet NICOL ([facility]) Sulfamethoxazole 800 MG / Trimethoprim 160 MG Oral Tablet NICOL ([facility]) quetiapine 400 MG Oral Tablet NICOL ([facility]) Phenazopyridine hydrochloride 200 MG Oral Tablet NICOL ([facility]) Penicillin V Potassium 500 MG Oral Tablet NICOL ([facility]) Naproxen 500 MG Oral Tablet NICOL ([facility]) Mirtazapine 7.5 MG Oral Tablet NICOL ([facility]) Mirtazapine 30 MG Oral Tablet NICOL ([facility]) Metoclopramide 5 MG Oral Tablet NICOL ([facility]) Methocarbamol 750 MG Oral Tablet NICOL ([facility]) [place] Carbonate 450 MG Extended Release Oral Tablet NICOL ([facility]) Ketorolac Tromethamine 10 MG Oral Tablet NICOL ([facility]) Acetaminophen 325 MG / Hydrocodone Bitartrate 5 MG Oral Tablet NICOL ([facility]) gabapentin 300 MG Oral Capsule NICOL ([facility]) Fluoxetine 40 MG Oral Capsule NICOL ([facility]) Fluoxetine 20 MG Oral Capsule NICOL ([facility]) Doxepin Hydrochloride 50 MG Oral Capsule NICOL ([facility]) Doxepin Hydrochloride 25 MG Oral Capsule NICOL ([facility]) Doxepin Hydrochloride 100 MG Oral Capsule NICOL ([facility]) Cyclobenzaprine hydrochloride 10 MG Oral Tablet NICOL ([facility]) Clonidine Hydrochloride 0.1 MG Oral Tablet NICOL ([facility]) Clonazepam 0.5 MG Disintegrating Oral Tablet NICOL ([facility]) Clindamycin 300 MG Oral Capsule NICOL ([facility]) Cephalexin 500 MG Oral Capsule NICOL ([facility]) benzonatate 200 MG Oral Capsule NICOL ([facility]) Azithromycin 250 MG Oral Tablet NICOL ([facility]) atorvastatin 20 MG Oral Tablet NICOL ([facility]) Amoxicillin 875 MG / Clavulanate 125 MG Oral Tablet NICOL ([facility]) albuterol sulfate HFA 90 mcg/actuation aerosol inhaler NICOL ([facility]) Acetaminophen 325 MG Oral Tablet NICOL ([facility]) Acetaminophen 300 MG / Codeine Phosphate 30 MG Oral Tablet NICOL ([facility])
[2020-04-23 20:47] LABS: BASO # 0.1 10^3/uL (0.0-0.2); BASO % 0.9 % (0.0-1.0); EOS # 0.1 10^3/uL (0.0-0.5); EOS % 1.5 % (0.0-3.0); HEMOGLOBIN 13.3 g/dl (12.0-15.5); LYMPH # 3.1 10^3/uL (1.5-5.0); LYMPH % 33.7 % (24.0-44.0); MEAN CORPUSCULAR HGB CONC 33.3 g/dl (32.0-36.5); MEAN CORPUSCULAR VOLUME 90.3 fl (80.0-96.0); MONO # 0.4 10^3/uL (0.0-0.8); MONO % 3.9 % (0.0-5.0); NEUTROPHILS # 5.5 10^3/uL (1.5-8.5); NEUTROPHILS % 59.4 % (36.0-66.0); PLATELET COUNT, AUTOMATED 249 10^3/uL (150-450); RED BLOOD COUNT 4.43 10^6/uL (4.00-5.40); WHITE BLOOD COUNT 9.3 10^3/uL (4.0-10.0)
[2020-04-23 21:11] LABS: ALBUMIN 3.8 GM/DL (3.2-5.2); ALT/SGPT 25 U/L (12-78); BILIRUBIN,DIRECT < 0.1 MG/DL (0.0-0.2); BILIRUBIN,TOTAL 0.2 MG/DL (0.2-1.0); LIPASE 125 U/L (73-393); TOTAL PROTEIN 6.7 GM/DL (6.4-8.2)
[2020-04-23] MEDS ORDERED: MORPHINE 4 MG/ML 1ML VIAL/SYRINGE (J2270) IV ONE (21:15)
[2020-04-23] MEDS ORDERED: POTASSIUM CHLORIDE 10 MEQ SR TABLET PO ONE (21:15)
[2020-04-23] MEDS ORDERED: ONDANSETRON 4MG/2ML VIAL IV ONE (21:15)
[2020-04-23 21:32] LABS: URINE PREG TEST NEGATIVE (NEGATIVE)
[2020-04-23] MEDS ORDERED: CIPROFLOXACIN 400 MG in IV 1 EA IV ONE (21:45)
--- NOTE | 2020-04-23 23:07 | REPVR ---
PROCEDURE INFORMATION: Exam: CT Abdomen And Pelvis Without Contrast Exam date and time: 04/23/2020 10:34 PM Age: 39 years old Clinical indication: Abdominal pain; Flank; Right; Additional info: R flank pain TECHNIQUE: Imaging protocol: Computed tomography of the abdomen and pelvis without contrast. Radiation optimization: All CT scans at this facility use at least one of these dose optimization techniques: automated exposure control; mA and/or kV adjustment per patient size (includes targeted exams where dose is matched to clinical indication); or iterative reconstruction. COMPARISON: CT ABD PELVIS W/O CONTRAST 10/07/2018 8:16 AM FINDINGS: Lungs: No suspicious mass or airspace process in the visualized lung bases. Liver: Noncontrast liver shows no obvious lesion. Gallbladder and bile ducts: Gallbladder is present and shows no evidence of gallstone. Pancreas: Noncontrast pancreas shows no obvious mass or adjacent fluid. Spleen: Noncontrast spleen shows no obvious focal deformity. Adrenal glands: Adrenal glands are normal in appearance. Kidneys and ureters: Noncontrast kidneys and ureters show no stone or obstructive change. Stomach and bowel: No evidence of small bowel obstruction. No evidence of acute diverticulitis. Appendix: Normal caliber appendix is identified, with no adjacent inflammation. Intraperitoneal space: No pneumoperitoneum. Vasculature: Atherosclerotic change present in the aorta, without aneurysm. Lymph nodes: No enlarged lymph nodes. Urinary bladder: Urinary bladder appears normal. Reproductive: Uterus is surgically absent. Bones/joints: Bony structures show no acute fracture or destructive process. Soft tissues: Fat containing umbilical hernia is present. No concerning focal abnormality of the extra-abdominal and pelvic soft tissues. Other findings: Limited evaluation without enteric or IV contrast. IMPRESSION: No evidence of obstructive uropathy and no evidence of acute appendicitis. No explanation for right flank pain Electronically signed by: Devon Richards On 04/23/2020 23:07:39 PM
[2020-04-23] MEDS ORDERED: ZOFR4TAB16 PO (23:14)
[2020-04-23] MEDS ORDERED: CIPR-249 PO (23:14)
[2020-04-23 23:57] VITALS: BP 111/59
== END 2020-04-23 23:59 | disposition home or self-care (01) ==
LOC: M ED 19:38
DX: N12 Tubulo-interstitial nephritis, not specified as acute or chronic (principal); K58.9 Irritable bowel syndrome, unspecified; F31.9 Bipolar disorder, unspecified; Z79.899 Other long term (current) drug therapy; F17.210 Nicotine dependence, cigarettes, uncomplicated
CPT/HCPCS: 36415; 74176; 80047; 80076; 81001; 83690; 84702; 84703; 85025; 87088; 87186; 96365; 96375; 99284; J0744; J2270; J2405

== ENCOUNTER → 2020-04-23 | Outpatient (REF) | payer OTHER ==
[~2020-04-23] MED LIST changes: +AMOX500C; +CIPR-249 PO; -CLIN150C14 PO; +CLIN150C15 PO; -CLIN300C5 PO; +CLIN300C6 PO; +CLON0.5T17 PO; +CLON0.5T2 PO; -DICY20TA PO; +DICY20TA3 PO; +GABA-282; +GABA-282 PO; -GABA-843; -GABA-843 PO; +GABA600T4; +MIRT-60 PO; +MIRT-62 PO; +QUET5TAB PO; -REME15TA PO; -REME30TA PO; +ZOFR4TAB16 PO
== END ==
LOC: M LAB REF 18:36
DX: R30.9 Painful micturition, unspecified (principal)

== ENCOUNTER 2020-06-30 16:43 | Emergency (ER) | payer OTHER ==
[~2020-06-30] VITALS: Ht 166.4 cm; Wt 80.5 kg
[~2020-06-30 16:43] MED LIST changes: +AMOX500C; +CIPR-249 PO; +GABA600T4; +QUET50TA3 PO; -QUET5TAB PO; +ZOFR4TAB16 PO
[2020-06-30] MEDS ORDERED: KETOROLAC 30 MG/ML 1ML VIAL IM ONE (20:35)
[2020-06-30] MEDS ORDERED: MEDR4PAK PO (20:36)
[2020-06-30 20:44] VITALS: BP 122/64
--- NOTE | 2020-06-30 21:15 | REPVR ---
PROCEDURE INFORMATION: Exam: XR Thoracic Spine Exam date and time: 06/30/2020 8:07 PM Age: 40 years old Clinical indication: Other: Back pain, radiculopathy TECHNIQUE: Imaging protocol: XR of the thoracic spine. Views: 3 views. COMPARISON: CT Spine,thoracic w/o contrast 2018-10-19 19:23 FINDINGS: Bones/joints: Minimal S-shaped thoracic curvature. Normal vertebral body heights and alignments. No acute vertebral fracture/subluxation. Soft tissues: Unremarkable. IMPRESSION: No acute vertebral fracture/subluxation. Electronically signed by: Roberto Vieira On 06/30/2020 21:15:45 PM
--- NOTE | 2020-06-30 21:18 | REPVR ---
PROCEDURE INFORMATION: Exam: XR Cervical Spine Exam date and time: 06/30/2020 8:07 PM Age: 40 years old Clinical indication: Other: Back pain, radiculopathy TECHNIQUE: Imaging protocol: XR of the cervical spine. Views: 2 or 3 views. COMPARISON: CT Spine,cervical w/o contrast 2018-10-19 19:20 FINDINGS: Bones/joints: Straightening of the normal cervical lordotic curvature. Normal vertebral body heights and alignments. No fractures. Soft tissues: Unremarkable. IMPRESSION: No acute fracture/subluxation. Electronically signed by: Roberto Vieira On 06/30/2020 21:18:49 PM
== END 2020-06-30 21:14 | disposition home or self-care (01) ==
LOC: M ED 16:43
DX: M54.14 Radiculopathy, thoracic region (principal); F31.9 Bipolar disorder, unspecified; F41.9 Anxiety disorder, unspecified; K58.9 Irritable bowel syndrome, unspecified; K21.9 Gastro-esophageal reflux disease without esophagitis; Z79.899 Other long term (current) drug therapy; F17.210 Nicotine dependence, cigarettes, uncomplicated
CPT/HCPCS: 72040; 72072; 96372; 99283; J1885

== ENCOUNTER 2020-07-16 10:25 | Emergency (ER) | payer OTHER ==
[~2020-07-16] VITALS: Ht 165.1 cm; Wt 81.2 kg
[2020-07-16 10:25] VITALS: BP 123/72
[~2020-07-16 10:25] MED LIST changes: +MEDR4PAK PO
[2020-07-16] MEDS ORDERED: LIDOCAINE VISCOUS 2% SOLN 15ML UDC SSP ONE (11:05)
[2020-07-16] MEDS ORDERED: KETOROLAC TROMETHAMINE 10 MG TAB PO ONE (11:05)
[2020-07-16] MEDS ORDERED: KETO10TAB PO (11:09)
[2020-07-16] MEDS ORDERED: LIDO2SOL9 SS (11:09)
== END 2020-07-16 11:32 | disposition home or self-care (01) ==
LOC: M ED 10:25
DX: R68.84 Jaw pain (principal); F31.9 Bipolar disorder, unspecified; K21.9 Gastro-esophageal reflux disease without esophagitis; K58.9 Irritable bowel syndrome, unspecified